=== PATIENT | female | born 1965 | race Caucasian/White ===

== ENCOUNTER 2016-06-24 14:50 | Inpatient (IN) | payer SELFPAY ==
[~2016-06-24] VITALS: Ht 167.6 cm; Wt 126.6 kg
[~2016-06-24 14:50] MED LIST: AML5T PO; METR500T PO; NITR-48 PO; OXY20CRT PO; OXYC10TA44 PO; TRIA25TA3 PO
[2016-06-24 15:57] LABS: Basophils # (auto) 0.1 uL; Basophils % (auto) 0.6 % (0.0-2.0); Eosinophils # (auto) 0.1 uL; Eosinophils % (auto) 1.2 % (0.0-7.0); Hematocrit 42.4 % (36.0-46.0); Hemoglobin 13.8 g/dL (12.2-16.2); Lymphocytes # (auto) 2.4 uL; Lymphocytes % (auto) 19.7 % (10.0-50.0); Mean Corpuscular Hemoglobin 27.5 pg (28.0-32.0); Mean Corpuscular Hgb Conc. 32.4 g/dL (32.0-36.0); Mean Corpuscular Volume 84.7 fL (80.0-100.0); Mean Platelet Volume 7.7 fL (7.4-10.4); Monocytes # (auto) 0.7 uL; Monocytes % (auto) 5.5 % (0.0-12.0); Neutrophils # (auto) 8.9 uL; Platelet Count (auto) 381 10^3/uL (140-450); Red Cell Distribution Width 14.7 % (11.6-16.0); White Blood Cell 12.2 10^3/uL (4.4-10.8)
[2016-06-24 16:11] LABS: Albumin 3.5 g/dL (3.4-5.0); BUN/Creatinine Ratio 13.4; Calcium 8.5 mg/dL (8.5-10.1)
[2016-06-24 16:14] LABS: Bilirubin, Total 0.3 mg/dL (0.2-1.0); Total Protein 7.3 g/dL (6.4-8.2)
[2016-06-24 16:40] LABS: INR 0.92 (0.9-1.15); Prothrombin Time 9.9 sec (9.37-12.3)
[2016-06-25] MEDS ORDERED: SODIUM CHLORIDE 0.9% 1,000 ML IV ONE (00:45)
[2016-06-25] MEDS ORDERED: HYDROmorphone HCL 2 MG/ML VL IV ONE ×2 (00:45→03:15)
[2016-06-25] MEDS ORDERED: ONDANSETRON HCL 4 MG/2 ML VIAL IV ONE (00:45)
[2016-06-25] MEDS ORDERED: cefTRIAXone 1GM/50ML D5W 50 ML IV ONE (03:15)
[2016-06-25] MEDS ORDERED: ACETAMINOPHEN 325 MG TAB PO PRN (06:00)
[2016-06-25] MEDS: CLINDAMYCIN 600MG IV 50 ML IV SCH ×3 (07:00→21:15)
[2016-06-25] MEDS ORDERED: ENOXAPARIN SOD 30 MG/0.3 ML SYRINGE SC SCH (10:00)
[2016-06-25] MEDS: TRIAMTERENE/HCTZ 75/50MG TABLET PO SCH (10:00)
[2016-06-25] MEDS ORDERED: MORPHINE SULF INJ 2 MG/ML SYRINGE 1ML IV PRN (11:15)
[2016-06-25] MEDS ORDERED: LACTULOSE 20Gm/30ML SOLN PO ONE (11:15)
[2016-06-25] MEDS ORDERED: KETOROLAC TROMETH 30 MG/ML 1ML VIAL IV PRN (12:00)
[2016-06-25] MEDS: FAMOTIDINE 20 MG TAB PO SCH ×2 (12:09→21:15)
[2016-06-25] MEDS: amLODIPine BESYLATE 5 MG TAB PO SCH (12:09)
[2016-06-25] MEDS: ENOXAPARIN SOD 40 MG/0.4 ML SYRINGE SC SCH (12:09)
[2016-06-25 12:29] VITALS: BP 150/84
[2016-06-25] MEDS: HYDROmorphone HCL 2 MG/ML VL IV PRN ×2 (12:57→18:10)
[2016-06-25 17:08] VITALS: BP 153/90
[2016-06-25 20:00] VITALS: BP 139/77
[2016-06-25 22:00] VITALS: BP 139/77
[2016-06-26] MEDS: HYDROmorphone HCL 2 MG/ML VL IV PRN ×4 (00:03→22:46)
[2016-06-26 05:00] VITALS: BP 159/88
[2016-06-26] MEDS: CLINDAMYCIN 600MG IV 50 ML IV SCH ×3 (05:25→22:45)
[2016-06-26 08:00] VITALS: BP 138/98
[2016-06-26 09:29] VITALS: BP 127/96
[2016-06-26] MEDS ORDERED: LACTULOSE 20Gm/30ML SOLN PO SCH (10:00)
[2016-06-26] MEDS: amLODIPine BESYLATE 5 MG TAB PO SCH (10:24)
[2016-06-26] MEDS: TRIAMTERENE/HCTZ 75/50MG TABLET PO SCH (10:24)
[2016-06-26] MEDS: ENOXAPARIN SOD 40 MG/0.4 ML SYRINGE SC SCH (10:25)
[2016-06-26] MEDS: FAMOTIDINE 20 MG TAB PO SCH ×2 (10:25→22:45)
[2016-06-26 13:29] VITALS: BP 138/98
[2016-06-26 17:05] VITALS: BP 131/86
[2016-06-26 23:22] VITALS: BP 162/92
[2016-06-27] MEDS: OXYCODONE W/ ACETAMINOPHEN 5/325MG TABLET PO PRN ×3 (04:55→20:46)
[2016-06-27] MEDS: CLINDAMYCIN 600MG IV 50 ML IV SCH ×3 (05:59→21:46)
[2016-06-27] MEDS: ONDANSETRON HCL 4 MG/2 ML VIAL IV PRN ×2 (06:04→19:40)
[2016-06-27 06:20] VITALS: BP 136/75
[2016-06-27 08:00] VITALS: BP 135/92
[2016-06-27 08:15] VITALS: BP 135/72
[2016-06-27] MEDS: LACTULOSE 20Gm/30ML SOLN PO SCH (10:00)
[2016-06-27] MEDS: amLODIPine BESYLATE 5 MG TAB PO SCH (10:44)
[2016-06-27] MEDS: FAMOTIDINE 20 MG TAB PO SCH ×2 (10:44→21:46)
[2016-06-27] MEDS: TRIAMTERENE/HCTZ 75/50MG TABLET PO SCH (10:45)
[2016-06-27] MEDS: ENOXAPARIN SOD 40 MG/0.4 ML SYRINGE SC SCH (10:46)
[2016-06-27 12:56] VITALS: BP 135/92
[2016-06-27] MEDS: HYDROmorphone HCL 2 MG/ML VL IV PRN (14:22)
[2016-06-27 17:07] VITALS: BP 134/86
[2016-06-27 22:00] VITALS: BP 125/89
[2016-06-28] MEDS: OXYCODONE W/ ACETAMINOPHEN 5/325MG TABLET PO PRN ×4 (03:51→21:58)
[2016-06-28] MEDS: CLINDAMYCIN 600MG IV 50 ML IV SCH ×3 (05:43→21:59)
[2016-06-28 05:49] VITALS: BP 120/79
[2016-06-28] MEDS: ONDANSETRON HCL 4 MG/2 ML VIAL IV PRN ×2 (05:53→12:07)
[2016-06-28 08:00] VITALS: BP 132/80
[2016-06-28 08:05] LABS: Basophils # (auto) 0.1 uL; Basophils % (auto) 0.7 % (0.0-2.0); Eosinophils # (auto) 0.2 uL; Eosinophils % (auto) 1.7 % (0.0-7.0); Hematocrit 42.7 % (36.0-46.0); Hemoglobin 14.2 g/dL (12.2-16.2); Lymphocytes # (auto) 2.6 uL; Lymphocytes % (auto) 23.3 % (10.0-50.0); Mean Corpuscular Hemoglobin 27.7 pg (28.0-32.0); Mean Corpuscular Hgb Conc. 33.3 g/dL (32.0-36.0); Mean Corpuscular Volume 83.3 fL (80.0-100.0); Mean Platelet Volume 7.7 fL (7.4-10.4); Monocytes # (auto) 0.8 uL; Monocytes % (auto) 6.7 % (0.0-12.0); Neutrophils # (auto) 7.6 uL; Neutrophils % (auto) 67.6 % (37.0-80.0); Platelet Count (auto) 406 10^3/uL (140-450); Red Cell Distribution Width 14.5 % (11.6-16.0); White Blood Cell 11.3 10^3/uL (4.4-10.8)
[2016-06-28 08:16] LABS: INR 0.92 (0.9-1.15); Partial Thromboplastin Time 26.8 sec (22.64-33.71); Prothrombin Time 9.9 sec (9.37-12.3)
[2016-06-28 08:31] LABS: BUN/Creatinine Ratio 22.3; Calcium 9.2 mg/dL (8.5-10.1); Potassium 4.5 mmol/L (3.5-5.1)
[2016-06-28 08:55] VITALS: BP 132/80
[2016-06-28] MEDS: ENOXAPARIN SOD 40 MG/0.4 ML SYRINGE SC SCH (09:19)
[2016-06-28] MEDS: amLODIPine BESYLATE 5 MG TAB PO SCH (09:20)
[2016-06-28] MEDS: TRIAMTERENE/HCTZ 75/50MG TABLET PO SCH (09:20)
[2016-06-28] MEDS: FAMOTIDINE 20 MG TAB PO SCH ×2 (09:21→21:58)
[2016-06-28] MEDS: LACTULOSE 20Gm/30ML SOLN PO SCH (09:49)
[2016-06-28] MEDS: HYDROmorphone HCL 2 MG/ML VL IV PRN (12:07)
[2016-06-28 12:38] VITALS: BP 115/88
[2016-06-28] MEDS ORDERED: CLIN1CAP4 PO (13:29)
[2016-06-28 17:13] VITALS: BP 125/85
[2016-06-28 22:00] VITALS: BP 142/81
[2016-06-29] MEDS ORDERED: ALPRAZolam 0.5 MG TAB PO ONE (00:30)
[2016-06-29 05:48] VITALS: BP 109/57
[2016-06-29] MEDS: CLINDAMYCIN 600MG IV 50 ML IV SCH ×2 (06:22→14:00)
[2016-06-29 08:00] VITALS: BP 132/80
[2016-06-29] MEDS: HYDROmorphone HCL 2 MG/ML VL IV PRN ×4 (08:45→18:56)
[2016-06-29] MEDS: ONDANSETRON HCL 4 MG/2 ML VIAL IV PRN ×2 (08:45→18:56)
[2016-06-29] MEDS: ENOXAPARIN SOD 40 MG/0.4 ML SYRINGE SC SCH (10:00)
[2016-06-29] MEDS: TRIAMTERENE/HCTZ 75/50MG TABLET PO SCH (10:00)
[2016-06-29] MEDS: FAMOTIDINE 20 MG TAB PO SCH ×2 (10:00→21:49)
[2016-06-29] MEDS: amLODIPine BESYLATE 5 MG TAB PO SCH (10:00)
[2016-06-29] MEDS: LACTULOSE 20Gm/30ML SOLN PO SCH (10:00)
[2016-06-29 10:43] VITALS: BP 118/77
[2016-06-29] MEDS ORDERED: LIDOCAINE 1% HCL (LOCAL ANESTH.) INJ 20ML MDV ONE (11:54)
[2016-06-29] MEDS ORDERED: BUPIVACAINE 0.25% INJ 50ML VIAL ONE (11:54)
[2016-06-29] MEDS ORDERED: ceFAZolin 1GM/50ML D5W 0 ML IV ONE (12:16)
[2016-06-29] MEDS ORDERED: LEVOFLOXACIN 500MG 100 ML IV ONE (12:28)
[2016-06-29] MEDS ORDERED: ePHEDrine SULFATE 50 MG/ML AMP IV PRN (13:45)
[2016-06-29] MEDS ORDERED: ONDANSETRON HCL 4 MG/2 ML VIAL IV ONE (13:45)
[2016-06-29] MEDS ORDERED: LABETALOL HCL 5 MG/ML 4ML SYRINGE IV PRN (13:45)
[2016-06-29] MEDS ORDERED: MIDAZOLAM HCL 1MG/1ML-2 ML VIAL IV PRN (13:45)
[2016-06-29] MEDS ORDERED: HYDROmorphone HCL 2 MG/ML VL ONE (13:46)
[2016-06-29 15:27] VITALS: BP 122/78
[2016-06-29] MEDS ORDERED: ACETAMINOPHEN/CODEINE#3 (300/30mg) TAB PO PRN (16:00)
[2016-06-29] MEDS: OXYCODONE W/ ACETAMINOPHEN 5/325MG TABLET PO PRN ×3 (16:00→23:01)
[2016-06-29 18:13] VITALS: BP 127/80
[2016-06-29] MEDS: MORPHINE SULFATE 4 MG/ML SYRG IV PRN (19:10)
[2016-06-29] MEDS: CLINDAMYCIN 300MG IV 50 ML IV SCH (20:56)
[2016-06-29] MEDS: ceFAZolin 1GM/50ML D5W 50 ML IV SCH (21:49)
[2016-06-29 22:00] VITALS: BP 144/69
[2016-06-30] MEDS: MORPHINE SULFATE 4 MG/ML SYRG IV PRN ×2 (02:47→07:22)
[2016-06-30] MEDS: ONDANSETRON HCL 4 MG/2 ML VIAL IV PRN ×2 (02:47→07:22)
[2016-06-30] MEDS: CLINDAMYCIN 300MG IV 50 ML IV SCH (04:34)
[2016-06-30 05:00] VITALS: BP 136/69
[2016-06-30] MEDS: OXYCODONE W/ ACETAMINOPHEN 5/325MG TABLET PO PRN (05:02)
[2016-06-30] MEDS: ceFAZolin 1GM/50ML D5W 50 ML IV SCH (05:47)
[2016-06-30 08:00] VITALS: BP 109/57
== END 2016-06-30 08:20 | disposition home or self-care (01) | DRG 570 ==
LOC: ER 14:50 → OVERFLOW 14:51 → WEST WING 06-25 10:51
PROVIDERS: ADMIT Nurse Practitioner; ATTEND Internal Medicine
PROC: 0J9C00Z Drainage of Pelvic Region Subcutaneous Tissue and Fascia with Drainage Device, Open Approach (ICD-10-PCS; 2016-06-29)
PROC: 0JBC0ZZ Excision of Pelvic Region Subcutaneous Tissue and Fascia, Open Approach (ICD-10-PCS; principal; 2016-06-29 12:45)
DX: L03.314 Cellulitis of groin (principal); K65.1 Peritoneal abscess; N17.9 Acute kidney failure, unspecified; F11.20 Opioid dependence, uncomplicated; R65.10 Systemic inflammatory response syndrome (SIRS) of non-infectious origin without acute organ dysfunction; Z68.42 Body mass index [BMI] 45.0-49.9, adult; L02.214 Cutaneous abscess of groin; L02.211 Cutaneous abscess of abdominal wall; M54.9 Dorsalgia, unspecified; G89.29 Other chronic pain; F17.210 Nicotine dependence, cigarettes, uncomplicated; I10 Essential (primary) hypertension; K42.9 Umbilical hernia without obstruction or gangrene; L03.311 Cellulitis of abdominal wall; R19.03 Right lower quadrant abdominal swelling, mass and lump; E66.01 Morbid (severe) obesity due to excess calories; Z90.49 Acquired absence of other specified parts of digestive tract; Z90.710 Acquired absence of both cervix and uterus; Z88.5 Allergy status to narcotic agent; Z88.0 Allergy status to penicillin; Z88.8 Allergy status to other drugs, medicaments and biological substances; Z91.018 Allergy to other foods
CPT/HCPCS: 36415; 71010; 74176; 76856; 80048; 80053; 84702; 85025; 85610; 85730; 86850; 86900; 86901; 87070; 87075; 87205; 93005; 96361; 96365; 96375; 96376; J0690; J0696; J1956; J2001; J2405; J3490

== ENCOUNTER 2016-07-05 19:35 | Inpatient (IN) | payer SELFPAY ==
[~2016-07-05] VITALS: Ht 167.6 cm; Wt 127.9 kg
[~2016-07-05 19:35] MED LIST changes: +CLIN1CAP4 PO; -METR500T PO; -NITR-48 PO; -TRIA25TA3 PO
[2016-07-05 20:47] LABS: Basophils # (auto) 0 uL; Basophils % (auto) 0.1 % (0.0-2.0); Eosinophils # (auto) 0.2 uL; Hematocrit 42.4 % (36.0-46.0); Hemoglobin 13.9 g/dL (12.2-16.2); Lymphocytes # (auto) 3.6 uL; Lymphocytes % (auto) 20.6 % (10.0-50.0); Mean Corpuscular Hemoglobin 27.6 pg (28.0-32.0); Mean Corpuscular Hgb Conc. 32.8 g/dL (32.0-36.0); Mean Platelet Volume 7.8 fL (7.4-10.4); Monocytes # (auto) 0.2 uL; Monocytes % (auto) 1.3 % (0.0-12.0); Neutrophils # (auto) 13.3 uL; Platelet Count (auto) 483 10^3/uL (140-450); Red Cell Distribution Width 14.4 % (11.6-16.0); White Blood Cell 17.2 10^3/uL (4.4-10.8)
[2016-07-05 20:50] LABS: Urine Bilirubin Negative (Negative); Urine Blood TRACE /uL (Negative); Urine Color Yellow (Yellow); Urine Glucose Normal (Normal); Urine Ketone TRACE (Negative); Urine Mucus FEW (None Seen); Urine Nitrite Negative (Negative); Urine RBC 9 /hpf (0 - 4); Urine Squamous Epithelial Cell FEW /hpf (<5); Urine Urobilinogen Normal (Negative); Urine pH 5.5 (5.0-8.0)
[2016-07-05 21:09] LABS: Albumin 3.5 g/dL (3.4-5.0); BUN/Creatinine Ratio 11.6; Calcium 8.6 mg/dL (8.5-10.1); Potassium 3.7 mmol/L (3.5-5.1)
[2016-07-05 21:12] LABS: Bilirubin, Total 0.1 mg/dL (0.2-1.0); Total Protein 7.5 g/dL (6.4-8.2)
[2016-07-06] MEDS ORDERED: HYDROmorphone HCL 2 MG/ML VL IV ONE ×2 (05:15→08:45)
[2016-07-06] MEDS ORDERED: ONDANSETRON HCL 4 MG/2 ML VIAL IV ONE ×2 (05:15→08:45)
[2016-07-06] MEDS: SODIUM CHLORIDE 0.9% 1,000 ML IV SCH ×2 (08:18→18:27)
[2016-07-06] MEDS ORDERED: HYDROcodone-ACET 5/325MG TAB PO PRN (08:30)
[2016-07-06] MEDS ORDERED: DEXTROSE (50%) 50ML SYRG IV PRN (08:30)
[2016-07-06] MEDS ORDERED: ACETAMINOPHEN 500 MG TAB PO PRN (08:30)
[2016-07-06] MEDS ORDERED: NITROGLYCERIN 0.4 MG SL TAB SL PRN (08:30)
[2016-07-06] MEDS ORDERED: LEVOFLOXACIN 500MG 100 ML IV ONE (08:30)
[2016-07-06] MEDS ORDERED: LORazepam 0.5 MG TAB PO PRN (08:30)
[2016-07-06] MEDS ORDERED: MORPHINE SULF INJ 2 MG/ML SYRINGE 1ML IV PRN (08:30)
[2016-07-06] MEDS ORDERED: LACTULOSE 20Gm/30ML SOLN PO PRN (08:30)
[2016-07-06 09:50] LABS: INR 0.96 (0.9-1.15); Partial Thromboplastin Time 25.6 sec (22.64-33.71); Prothrombin Time 10.4 sec (9.37-12.3)
[2016-07-06] MEDS: ENOXAPARIN SOD 40 MG/0.4 ML SYRINGE SC SCH (10:00)
[2016-07-06] MEDS: CLINDAMYCIN 600MG IV 50 ML IV SCH ×2 (10:51→18:26)
[2016-07-06] MEDS: MORPHINE SULF INJ 2 MG/ML SYRINGE 1ML IV PRN ×2 (10:52→18:00)
[2016-07-06] MEDS: FAMOTIDINE 20 MG TAB PO SCH ×2 (10:52→21:09)
[2016-07-06] MEDS ORDERED: LEVOFLOXACIN 500MG 100 ML IV SCH (11:00)
[2016-07-06] MEDS: ACCU-CHEK COMFORT CURVE STRIP VI SCH ×3 (11:30→21:17)
[2016-07-06] MEDS: InsuLIN REG 1unit/0.01ml Soln (100units/ml) SC SCH ×3 (11:30→21:16)
[2016-07-06] MEDS ORDERED: INFLUENZA QUAD 2016-2017 0.5 ML SYRG IM ONE (11:30)
[2016-07-06] MEDS ORDERED: PNEUMOCOCCAL VACC POLYS 25 MCG/0.5 ML VIAL IM ONE (11:30)
[2016-07-06 13:00] VITALS: BP 159/90
[2016-07-06 17:00] VITALS: BP 151/73
[2016-07-06] MEDS: ONDANSETRON HCL 4 MG/2 ML VIAL IV PRN ×2 (18:00→21:09)
[2016-07-06] MEDS: medroxyPROGESTERone ACETATE 5 MG TAB PO SCH (18:27)
[2016-07-06 20:00] VITALS: BP 118/84
[2016-07-06 21:30] VITALS: BP 118/84
[2016-07-06] MEDS ORDERED: OXYCODONE W/ ACETAMINOPHEN 5/325MG TABLET PO PRN (22:15)
[2016-07-07] VITALS (7 sets, daily range): BP systolic 137–167; BP diastolic 78–104
[2016-07-07] MEDS: SODIUM CHLORIDE 0.9% 1,000 ML IV SCH ×2 (00:47→15:47)
[2016-07-07] MEDS: CLOTRIMAZOLE 1 % CREAM 15GM TOP SCH ×3 (00:47→22:00)
[2016-07-07] MEDS: ONDANSETRON HCL 4 MG/2 ML VIAL IV PRN ×2 (00:47→09:35)
[2016-07-07] MEDS: HYDROmorphone HCL 2 MG/ML VL IV PRN ×4 (00:48→20:08)
[2016-07-07] MEDS: CLINDAMYCIN 600MG IV 50 ML IV SCH ×3 (02:04→17:28)
[2016-07-07] MEDS: ACCU-CHEK COMFORT CURVE STRIP VI SCH ×4 (05:14→21:40)
[2016-07-07] MEDS: InsuLIN REG 1unit/0.01ml Soln (100units/ml) SC SCH ×4 (05:14→21:39)
[2016-07-07 07:00] LABS: Basophils # (auto) 0 uL; Basophils % (auto) 0.4 % (0.0-2.0); Eosinophils # (auto) 0.2 uL; Eosinophils % (auto) 2.2 % (0.0-7.0); Hematocrit 36.6 % (36.0-46.0); Hemoglobin 11.9 g/dL (12.2-16.2); Lymphocytes # (auto) 3.5 uL; Lymphocytes % (auto) 30.5 % (10.0-50.0); Mean Corpuscular Hemoglobin 27.5 pg (28.0-32.0); Mean Corpuscular Hgb Conc. 32.6 g/dL (32.0-36.0); Mean Corpuscular Volume 84.6 fL (80.0-100.0); Mean Platelet Volume 7.6 fL (7.4-10.4); Monocytes # (auto) 0.9 uL; Monocytes % (auto) 7.6 % (0.0-12.0); Neutrophils # (auto) 6.7 uL; Neutrophils % (auto) 59.3 % (37.0-80.0); Platelet Count (auto) 406 10^3/uL (140-450); Red Cell Distribution Width 14.6 % (11.6-16.0); White Blood Cell 11.3 10^3/uL (4.4-10.8)
[2016-07-07 07:21] LABS: Potassium 3.7 mmol/L (3.5-5.1)
[2016-07-07 07:26] LABS: BUN/Creatinine Ratio 18.7; Calcium 8.3 mg/dL (8.5-10.1); Total Protein 6.5 g/dL (6.4-8.2)
[2016-07-07 07:28] LABS: Bilirubin, Total 0.2 mg/dL (0.2-1.0)
[2016-07-07] MEDS: FAMOTIDINE 20 MG TAB PO SCH ×2 (09:33→21:39)
[2016-07-07] MEDS: ENOXAPARIN SOD 40 MG/0.4 ML SYRINGE SC SCH (09:33)
[2016-07-07] MEDS: ESTROGEN CONJ 0.3 MG TAB PO SCH (09:33)
[2016-07-07] MEDS: LEVOFLOXACIN 500MG 100 ML IV SCH (11:13)
[2016-07-07] MEDS: medroxyPROGESTERone ACETATE 5 MG TAB PO SCH (17:28)
[2016-07-07] MEDS: TEMAZEPAM 15 MG CAP PO PRN (22:10)
[2016-07-08] VITALS (7 sets, daily range): BP systolic 137–158; BP diastolic 76–108
[2016-07-08] MEDS: SODIUM CHLORIDE 0.9% 1,000 ML IV SCH ×2 (00:18→10:30)
[2016-07-08] MEDS: CLINDAMYCIN 600MG IV 50 ML IV SCH ×2 (02:24→10:29)
[2016-07-08] MEDS: TEMAZEPAM 15 MG CAP PO PRN (02:31)
[2016-07-08] MEDS: InsuLIN REG 1unit/0.01ml Soln (100units/ml) SC SCH ×2 (07:00→11:27)
[2016-07-08] MEDS: ACCU-CHEK COMFORT CURVE STRIP VI SCH ×2 (07:12→11:27)
[2016-07-08] MEDS: ESTROGEN CONJ 0.3 MG TAB PO SCH (10:29)
[2016-07-08] MEDS: ENOXAPARIN SOD 40 MG/0.4 ML SYRINGE SC SCH (10:29)
[2016-07-08] MEDS: FAMOTIDINE 20 MG TAB PO SCH (10:29)
[2016-07-08] MEDS: CLOTRIMAZOLE 1 % CREAM 15GM TOP SCH (10:30)
[2016-07-08] MEDS: HYDROmorphone HCL 2 MG/ML VL IV PRN (11:57)
[2016-07-08] MEDS: LEVOFLOXACIN 500MG 100 ML IV SCH (12:17)
== END 2016-07-08 17:00 | disposition home or self-care (01) | DRG 758 ==
LOC: ER 19:37 → TELE 19:38 → TELE-EAST 07-06 10:17 → EAST 07-08 06:37
PROVIDERS: ADMIT Internal Medicine; ATTEND Internal Medicine
DX: B37.3 Candidiasis of vulva and vagina (principal); N39.0 Urinary tract infection, site not specified; Z68.42 Body mass index [BMI] 45.0-49.9, adult; L03.311 Cellulitis of abdominal wall; E11.9 Type 2 diabetes mellitus without complications; E66.01 Morbid (severe) obesity due to excess calories; I10 Essential (primary) hypertension; M79.7 Fibromyalgia; Z88.6 Allergy status to analgesic agent; Z88.0 Allergy status to penicillin; Z88.8 Allergy status to other drugs, medicaments and biological substances; Z79.899 Other long term (current) drug therapy; Z82.49 Family history of ischemic heart disease and other diseases of the circulatory system; Z80.9 Family history of malignant neoplasm, unspecified; Z91.02 Food additives allergy status
CPT/HCPCS: 36415; 74176; 76830; 76856; 80053; 81001; 81025; 82962; 83036; 83605; 85025; 85610; 85652; 85730; 87040; 87081; 87086; 94761; 96365; 96375; 96376; J1956; J2405; J3490

== ENCOUNTER 2017-01-28 01:28 | Emergency (ER) | payer SELFPAY ==
[~2017-01-28] VITALS: Ht 167.6 cm; Wt 80.0 kg
[~2017-01-28 01:28] MED LIST changes: -CLIN1CAP4 PO; -OXY20CRT PO; -OXYC10TA44 PO
[2017-01-28] MEDS ORDERED: ONDANSETRON ODT 4 MG TAB PO ONE (01:45)
[2017-01-28 01:57] LABS: Basophils # (auto) 0 uL; Basophils % (auto) 0.3 % (0.0-2.0); Eosinophils # (auto) 0.2 uL; Eosinophils % (auto) 1.6 % (0.0-7.0); Hematocrit 41.9 % (36.0-46.0); Hemoglobin 13.7 g/dL (12.2-16.2); Lymphocytes # (auto) 3.1 uL; Lymphocytes % (auto) 25.7 % (10.0-50.0); Mean Corpuscular Hemoglobin 27.4 pg (28.0-32.0); Mean Corpuscular Hgb Conc. 32.8 g/dL (32.0-36.0); Mean Corpuscular Volume 83.5 fL (80.0-100.0); Monocytes # (auto) 0.8 uL; Monocytes % (auto) 6.7 % (0.0-12.0); Neutrophils % (auto) 65.7 % (37.0-80.0); Platelet Count (auto) 364 10^3/uL (140-450); Red Blood Cells 5.01 10^6/uL (4.0-5.20); Red Cell Distribution Width 13.5 % (11.8-14.3); White Blood Cell 12.1 10^3/uL (4.4-10.8)
[2017-01-28 02:00] LABS: Urine Bacteria FEW /hpf (None Seen); Urine Blood Negative /uL (Negative); Urine Specific Gravity 1.013 (1.001-1.035); Urine WBC <1 /hpf (0 - 5)
[2017-01-28 02:11] LABS: INR 0.9 (0.9-1.15); Partial Thromboplastin Time 24.8 sec (22.64-33.71); Prothrombin Time 9.8 sec (9.37-12.3)
[2017-01-28 02:13] LABS: Alanine Aminotransferase 26 U/L (13-56); Albumin 3.4 g/dL (3.4-5.0); Amylase 40 U/L (25-115); Anion Gap 8 (5-15); Aspartate Aminotransferase 11 U/L (15-37); BUN/Creatinine Ratio 14.8; Blood Urea Nitrogen 12 mg/dL (7-18); Calcium 8.7 mg/dL (8.5-10.1); Carbon Dioxide 27 mmol/L (21-32); Chloride 103 mmol/L (98-107); GFR African American 97 mL/min; GFR Non-African American 80 mL/min; Glucose 97 mg/dL (74-106); Lipase 130 U/L (73-393); Potassium 3.6 mmol/L (3.5-5.1); Sodium 138 mmol/L (136-145)
[2017-01-28 02:18] LABS: Alkaline Phosphatase 97 U/L (45-117); Bilirubin, Total 0.2 mg/dL (0.2-1.0); Total Protein 7.4 g/dL (6.4-8.2)
[2017-01-28 02:40] VITALS: BP 166/82
[2017-01-28] MEDS ORDERED: SODIUM CHLORIDE 0.9% 1,000 ML IV ONE (02:45)
[2017-01-28] MEDS ORDERED: ONDANSETRON HCL 4 MG/2 ML VIAL IV ONE (02:45)
[2017-01-28] MEDS ORDERED: ACETAMINOPHEN 325 MG TAB PO ONE (03:00)
[2017-01-28] MEDS ORDERED: ALUM & MAG HYDROX-SIMETH LIQ(MAALOX) 30 ML ONE (03:40)
[2017-01-28] MEDS ORDERED: ALUM & MAG HYDROX-SIMETH LIQ(MAALOX) 30 ML PO ONE (04:00)
== END 2017-01-28 04:17 | disposition home or self-care (01) ==
LOC: ER 01:30
DX: R10.9 Unspecified abdominal pain (principal); E11.9 Type 2 diabetes mellitus without complications; I10 Essential (primary) hypertension; Z88.0 Allergy status to penicillin; Z88.6 Allergy status to analgesic agent; Z88.8 Allergy status to other drugs, medicaments and biological substances; Z98.890 Other specified postprocedural states
CPT/HCPCS: 36415; 71020; 74176; 80053; 81001; 82150; 83690; 84484; 84702; 85025; 85610; 85730; 93005; 96361; 96374; 99285; J2405; J7030; Q0162

== ENCOUNTER 2017-01-29 17:54 | Emergency (ER) | payer SELFPAY ==
[~2017-01-29] VITALS: Ht 162.6 cm; Wt 113.4 kg
[2017-01-29 19:28] LABS: INR 0.97 (0.9-1.15); Prothrombin Time 10.6 sec (9.37-12.3)
[2017-01-29 19:32] LABS: Albumin 3.5 g/dL (3.4-5.0); Anion Gap 7 (5-15); Aspartate Aminotransferase 11 U/L (15-37); BUN/Creatinine Ratio 10.9; Blood Urea Nitrogen 10 mg/dL (7-18); Calcium 8.7 mg/dL (8.5-10.1); Carbon Dioxide 24 mmol/L (21-32); Chloride 110 mmol/L (98-107); GFR African American 83 mL/min; GFR Non-African American 69 mL/min; Glucose 96 mg/dL (74-106); Sodium 141 mmol/L (136-145)
[2017-01-29 19:36] LABS: Alkaline Phosphatase 81 U/L (45-117); Basophils # (auto) 0.1 uL; Basophils % (auto) 0.4 % (0.0-2.0); Bilirubin, Total 0.3 mg/dL (0.2-1.0); Eosinophils # (auto) 0 uL; Eosinophils % (auto) 0.2 % (0.0-7.0); Hematocrit 44.4 % (36.0-46.0); Hemoglobin 14.5 g/dL (12.2-16.2); Lymphocytes # (auto) 3.3 uL; Lymphocytes % (auto) 18.7 % (10.0-50.0); Mean Corpuscular Hemoglobin 27.4 pg (28.0-32.0); Mean Corpuscular Hgb Conc. 32.6 g/dL (32.0-36.0); Mean Corpuscular Volume 84.1 fL (80.0-100.0); Mean Platelet Volume 7.7 fL (6.9-10.8); Monocytes # (auto) 0.8 uL; Monocytes % (auto) 4.8 % (0.0-12.0); Neutrophils # (auto) 13.3 uL; Neutrophils % (auto) 75.9 % (37.0-80.0); Platelet Count (auto) 398 10^3/uL (140-450); Red Cell Distribution Width 13.7 % (11.8-14.3); Total Protein 7.6 g/dL (6.4-8.2); White Blood Cell 17.6 10^3/uL (4.4-10.8)
[2017-01-29] MEDS ORDERED: ONDANSETRON ODT 4 MG TAB PO ONE (23:15)
[2017-01-29] MEDS ORDERED: SODIUM CHLORIDE 0.9% 1,000 ML IV ONE (23:30)
[2017-01-29] MEDS ORDERED: ONDANSETRON HCL 4 MG/2 ML VIAL IV ONE (23:30)
[2017-01-30] MEDS ORDERED: PROMETHAZINE HCL 25 MG/ML 1ML IV ONE (00:30)
[2017-01-30] MEDS ORDERED: LEVOFLOXACIN 750MG 150 ML IV ONE (01:00)
[2017-01-30] MEDS ORDERED: NALBUPHINE HCL 10 MG/1ml INJECTION IV ONE (01:00)
[2017-01-30 02:21] VITALS: BP 158/95
[2017-01-30] MEDS ORDERED: HYDROmorphone HCL 2 MG/ML VL IM ONE (03:45)
== END 2017-01-30 04:23 | disposition home or self-care (01) ==
LOC: ER 17:54 → EDBD 17:54 → ER 01-30 03:53
DX: R11.2 Nausea with vomiting, unspecified (principal); M47.896 Other spondylosis, lumbar region; E11.9 Type 2 diabetes mellitus without complications; I10 Essential (primary) hypertension; Z88.0 Allergy status to penicillin; Z88.6 Allergy status to analgesic agent; Z88.8 Allergy status to other drugs, medicaments and biological substances
CPT/HCPCS: 36415; 71010; 80053; 84484; 85025; 85610; 85730; 96361; 96365; 96372; 96375; 99285; J1170; J1956; J2300; J2405; J2550; J7030

== ENCOUNTER 2017-04-24 07:17 | Inpatient (IN) | payer MEDICAID ==
[~2017-04-24] VITALS: Ht 170.2 cm; Wt 121.6 kg
[~2017-04-24 07:17] MED LIST changes: +METF-370 PO; +OXYC30TA50 PO
[2017-04-24 10:21] LABS: Basophils # (auto) 0.2 uL; Basophils % (auto) 1.1 % (0.0-2.0); Eosinophils # (auto) 0 uL; Eosinophils % (auto) 0.1 % (0.0-7.0); Hemoglobin 14.5 g/dL (12.2-16.2); Lymphocytes # (auto) 1.9 uL; Lymphocytes % (auto) 13.8 % (10.0-50.0); Mean Corpuscular Hemoglobin 27.5 pg (28.0-32.0); Mean Corpuscular Volume 83.3 fL (80.0-100.0); Monocytes # (auto) 0.7 uL; Monocytes % (auto) 5.1 % (0.0-12.0); Neutrophils # (auto) 11.2 uL; Neutrophils % (auto) 79.9 % (37.0-80.0); Nucleated Red Blood Cells % 0.1 %; Platelet Count (auto) 438 10^3/uL (140-450); Red Blood Cells 5.29 10^6/uL (4.0-5.20); Red Cell Distribution Width 15.3 % (11.8-14.3)
[2017-04-24] MEDS ORDERED: PANTOPRAZOLE 40 MG/10 ML VIAL IV STA (10:24)
[2017-04-24] MEDS ORDERED: ONDANSETRON HCL 4 MG/2 ML VIAL IV ONE ×2 (10:30→12:00)
[2017-04-24] MEDS ORDERED: HYDROmorphone HCL 2 MG/ML VL IV ONE ×2 (10:30→12:00)
[2017-04-24 10:41] LABS: Albumin 3.7 g/dL (3.4-5.0); Calcium 9.5 mg/dL (8.5-10.1); Potassium 3.7 mmol/L (3.5-5.1)
[2017-04-24 10:44] LABS: BUN/Creatinine Ratio 21.4
[2017-04-24] MEDS ORDERED: SODIUM CHLORIDE 0.9% 500 ML IV ONE (10:45)
[2017-04-24 10:46] LABS: Bilirubin, Total 0.6 mg/dL (0.2-1.0); Total Protein 7.8 g/dL (6.4-8.2)
[2017-04-24 11:03] LABS: Magnesium 2.2 mg/dL (1.6-2.6)
[2017-04-24] MEDS ORDERED: LEVOFLOXACIN 500MG 100 ML IV ONE (12:30)
[2017-04-24] MEDS ORDERED: FAMOTIDINE (10MG/ML) 2ML VL IV SCH (12:30)
[2017-04-24] MEDS ORDERED: DEXTROSE (50%) 50ML SYRG IV PRN (12:30)
[2017-04-24] MEDS ORDERED: NITROGLYCERIN 0.4 MG SL TAB SL PRN (12:30)
[2017-04-24] MEDS ORDERED: HYDROcodone-ACET 5/325MG TAB PO PRN (12:30)
[2017-04-24] MEDS: SODIUM CHLORIDE 0.9% 1,000 ML IV SCH ×2 (12:51→21:53)
[2017-04-24] MEDS: PANTOPRAZOLE 40 MG/10 ML VIAL IV SCH ×2 (13:29→21:52)
[2017-04-24 13:30] LABS: Urine Bacteria FEW /hpf (None Seen); Urine Blood 1+ /uL (Negative); Urine Mucus FEW (None Seen); Urine Specific Gravity 1.023 (1.001-1.035); Urine WBC 2 /hpf (0 - 5)
[2017-04-24] MEDS: HYOSCYAMINE SULF 0.125 MG TAB PO SCH ×2 (13:34→18:37)
[2017-04-24] MEDS: ONDANSETRON HCL 4 MG/2 ML VIAL IV PRN ×2 (16:49→21:25)
[2017-04-24] MEDS: ACCU-CHEK COMFORT CURVE STRIP VI SCH ×2 (18:00→21:53)
[2017-04-24] MEDS: InsuLIN REG 1unit/0.01ml Soln (100units/ml) SC SCH ×2 (18:00→21:52)
[2017-04-24] MEDS: metroNIDAZOLE 500MG/100ML 100 ML IV SCH (18:37)
[2017-04-24 20:45] VITALS: BP 138/90
[2017-04-24] MEDS: LORazepam 0.5 MG TAB PO PRN (21:45)
[2017-04-24 22:00] VITALS: BP 138/90
[2017-04-24] MEDS: HYDROmorphone HCL 2 MG/ML VL IV PRN (23:06)
[2017-04-25] MEDS: metroNIDAZOLE 500MG/100ML 100 ML IV SCH ×4 (00:21→16:54)
[2017-04-25] MEDS: HYOSCYAMINE SULF 0.125 MG TAB PO SCH ×5 (00:21→16:54)
[2017-04-25] MEDS: HYDROmorphone HCL 2 MG/ML VL IV PRN (03:26)
[2017-04-25] MEDS: ONDANSETRON HCL 4 MG/2 ML VIAL IV PRN ×5 (03:26→20:58)
[2017-04-25] MEDS: LORazepam 0.5 MG TAB PO PRN ×3 (05:52→17:58)
[2017-04-25] MEDS: InsuLIN REG 1unit/0.01ml Soln (100units/ml) SC SCH ×4 (06:35→23:21)
[2017-04-25] MEDS: ACCU-CHEK COMFORT CURVE STRIP VI SCH ×4 (06:36→22:00)
[2017-04-25] MEDS ORDERED: MORPHINE SULFATE 4 MG/ML SYR/VIAL ONE (08:21)
[2017-04-25] MEDS ORDERED: MORPHINE SULFATE 10 MG/ML INJ 1ML SDV IV PRN (08:30)
[2017-04-25] MEDS: SODIUM CHLORIDE 0.9% 1,000 ML IV SCH ×2 (08:34→16:54)
[2017-04-25 08:46] VITALS: BP 143/67
[2017-04-25 08:55] LABS: Basophils # (auto) 0.1 uL; Basophils % (auto) 0.6 % (0.0-2.0); Eosinophils # (auto) 0 uL; Eosinophils % (auto) 0.3 % (0.0-7.0); Hematocrit 40.3 % (36.0-46.0); Hemoglobin 13.3 g/dL (12.2-16.2); Lymphocytes # (auto) 2.2 uL; Lymphocytes % (auto) 18.3 % (10.0-50.0); Mean Corpuscular Hemoglobin 27.4 pg (28.0-32.0); Mean Corpuscular Hgb Conc. 32.9 g/dL (32.0-36.0); Mean Corpuscular Volume 83.2 fL (80.0-100.0); Monocytes # (auto) 0.7 uL; Monocytes % (auto) 6.1 % (0.0-12.0); Neutrophils % (auto) 74.7 % (37.0-80.0); Platelet Count (auto) 370 10^3/uL (140-450); Red Blood Cells 4.85 10^6/uL (4.0-5.20); Red Cell Distribution Width 15.4 % (11.8-14.3); White Blood Cell 12.1 10^3/uL (4.4-10.8)
[2017-04-25 09:16] LABS: Cholesterol 152 mg/dL (< 200); HDL Cholesterol 46 mg/dL (40-59); LDL Cholesterol 102 mg/dL (< 100); Triglycerides 95 mg/dL (< 150)
[2017-04-25] MEDS: amLODIPine BESYLATE 5 MG TAB PO SCH (11:30)
[2017-04-25] MEDS: PANTOPRAZOLE 40 MG/10 ML VIAL IV SCH (11:32)
[2017-04-25] MEDS: LEVOFLOXACIN 500MG 100 ML IV SCH (11:32)
[2017-04-25 11:44] VITALS: BP 144/77
[2017-04-25] MEDS: MORPHINE SULFATE 4 MG/ML SYR/VIAL IV PRN ×3 (12:32→20:56)
[2017-04-25 16:54] VITALS: BP 123/76
[2017-04-25 22:00] VITALS: BP 114/58
[2017-04-26] MEDS: HYOSCYAMINE SULF 0.125 MG TAB PO SCH ×4 (00:47→17:44)
[2017-04-26] MEDS: metroNIDAZOLE 500MG/100ML 100 ML IV SCH ×4 (00:47→17:44)
[2017-04-26] MEDS: ONDANSETRON HCL 4 MG/2 ML VIAL IV PRN ×5 (00:47→17:44)
[2017-04-26] MEDS: MORPHINE SULFATE 4 MG/ML SYR/VIAL IV PRN ×2 (00:49→05:35)
[2017-04-26] MEDS: PANTOPRAZOLE 40 MG/10 ML VIAL IV SCH ×3 (00:50→21:46)
[2017-04-26] MEDS: SODIUM CHLORIDE 0.9% 1,000 ML IV SCH ×2 (04:18→15:03)
[2017-04-26] MEDS: LORazepam 0.5 MG TAB PO PRN ×2 (05:24→21:48)
[2017-04-26] MEDS: InsuLIN REG 1unit/0.01ml Soln (100units/ml) SC SCH ×4 (07:00→22:09)
[2017-04-26] MEDS: ACCU-CHEK COMFORT CURVE STRIP VI SCH ×4 (07:09→22:10)
[2017-04-26 07:10] LABS: Basophils # (auto) 0.1 uL; Basophils % (auto) 0.6 % (0.0-2.0); Eosinophils # (auto) 0.1 uL; Eosinophils % (auto) 0.9 % (0.0-7.0); Hematocrit 43.3 % (36.0-46.0); Hemoglobin 14.6 g/dL (12.2-16.2); Lymphocytes # (auto) 2.3 uL; Lymphocytes % (auto) 18.1 % (10.0-50.0); Mean Corpuscular Hemoglobin 28.3 pg (28.0-32.0); Mean Corpuscular Hgb Conc. 33.7 g/dL (32.0-36.0); Monocytes # (auto) 0.9 uL; Neutrophils # (auto) 9.3 uL; Neutrophils % (auto) 73.4 % (37.0-80.0); Nucleated Red Blood Cells % 0.2 %; Platelet Count (auto) 373 10^3/uL (140-450); Red Blood Cells 5.15 10^6/uL (4.0-5.20); Red Cell Distribution Width 14.9 % (11.8-14.3); White Blood Cell 12.6 10^3/uL (4.4-10.8)
[2017-04-26 07:19] LABS: Calcium 8.9 mg/dL (8.5-10.1)
[2017-04-26 07:21] LABS: BUN/Creatinine Ratio 11.8
[2017-04-26] MEDS ORDERED: OXYCODONE HCL 5MG TAB PO PRN (07:45)
[2017-04-26 08:00] VITALS: BP 143/67
[2017-04-26 08:53] VITALS: BP 138/89
[2017-04-26] MEDS: amLODIPine BESYLATE 5 MG TAB PO SCH (09:12)
[2017-04-26] MEDS: LEVOFLOXACIN 500MG 100 ML IV SCH (09:12)
[2017-04-26] MEDS: NICOTINE 21MG/24 HR TOPICAL PATCH TD SCH (09:14)
[2017-04-26] MEDS: oxyCODONE ER 20 MG TAB PO SCH ×2 (09:14→21:48)
[2017-04-26] MEDS: OXYCODONE HCL 5MG TAB PO PRN ×3 (10:03→17:45)
[2017-04-26 13:00] VITALS: BP 130/91
[2017-04-26] MEDS: ACETAMINOPHEN 500 MG TAB PO PRN (14:07)
[2017-04-26 17:00] VITALS: BP 124/67
[2017-04-26 21:30] VITALS: BP 147/75
[2017-04-26] MEDS: TEMAZEPAM 15 MG CAP PO PRN (21:46)
[2017-04-26] MEDS: guaiFENesin-DM 100/10mg/5ml SYR PO PRN (22:37)
[2017-04-27] MEDS: metroNIDAZOLE 500MG/100ML 100 ML IV SCH ×4 (00:13→17:42)
[2017-04-27] MEDS: OXYCODONE HCL 5MG TAB PO PRN ×6 (00:17→20:47)
[2017-04-27] MEDS: HYOSCYAMINE SULF 0.125 MG TAB PO SCH ×4 (00:18→17:43)
[2017-04-27] MEDS: SODIUM CHLORIDE 0.9% 1,000 ML IV SCH ×3 (00:18→22:00)
[2017-04-27] MEDS: guaiFENesin-DM 100/10mg/5ml SYR PO PRN ×3 (03:00→14:46)
[2017-04-27 05:00] VITALS: BP 149/106
[2017-04-27 06:07] LABS: Basophils # (auto) 0.1 uL; Basophils % (auto) 0.6 % (0.0-2.0); Eosinophils # (auto) 0.2 uL; Eosinophils % (auto) 1.6 % (0.0-7.0); Hematocrit 41.9 % (36.0-46.0); Lymphocytes # (auto) 1.6 uL; Lymphocytes % (auto) 16.8 % (10.0-50.0); Mean Corpuscular Hemoglobin 28.1 pg (28.0-32.0); Mean Corpuscular Hgb Conc. 33.4 g/dL (32.0-36.0); Mean Corpuscular Volume 84.1 fL (80.0-100.0); Monocytes # (auto) 0.9 uL; Monocytes % (auto) 8.9 % (0.0-12.0); Neutrophils # (auto) 6.9 uL; Neutrophils % (auto) 72.1 % (37.0-80.0); Nucleated Red Blood Cells % 0.1 %; Platelet Count (auto) 320 10^3/uL (140-450); Red Blood Cells 4.98 10^6/uL (4.0-5.20); White Blood Cell 9.6 10^3/uL (4.4-10.8)
[2017-04-27 06:28] LABS: BUN/Creatinine Ratio 15.2; Calcium 8.4 mg/dL (8.5-10.1); Potassium 3.5 mmol/L (3.5-5.1)
[2017-04-27] MEDS: InsuLIN REG 1unit/0.01ml Soln (100units/ml) SC SCH ×4 (06:44→21:55)
[2017-04-27] MEDS ORDERED: POTASSIUM CHL 20 Meq TABLET PO ONE (07:00)
[2017-04-27] MEDS: ONDANSETRON HCL 4 MG/2 ML VIAL IV PRN ×4 (07:04→20:47)
[2017-04-27] MEDS: ACCU-CHEK COMFORT CURVE STRIP VI SCH ×4 (07:05→21:56)
[2017-04-27] MEDS: ACETAMINOPHEN 500 MG TAB PO PRN ×3 (08:40→22:02)
[2017-04-27 09:00] VITALS: BP 178/91
[2017-04-27] MEDS: LEVOFLOXACIN 500MG 100 ML IV SCH (09:42)
[2017-04-27] MEDS: PANTOPRAZOLE 40 MG/10 ML VIAL IV SCH ×2 (09:42→21:47)
[2017-04-27] MEDS: amLODIPine BESYLATE 5 MG TAB PO SCH (09:43)
[2017-04-27] MEDS: OSELTAMIVIR 75 MG CAP PO SCH ×2 (09:43→21:48)
[2017-04-27] MEDS: oxyCODONE ER 20 MG TAB PO SCH ×2 (09:43→21:48)
[2017-04-27] MEDS: NICOTINE 21MG/24 HR TOPICAL PATCH TD SCH (09:44)
[2017-04-27] MEDS ORDERED: GOLYTELY 4L KIT PO ONE (11:00)
[2017-04-27 13:00] VITALS: BP 161/78
[2017-04-27] MEDS: LORazepam 0.5 MG TAB PO PRN (14:46)
[2017-04-27 16:22] LABS: Prothrombin Time 10.9 sec (9.37-12.3)
[2017-04-27 17:00] VITALS: BP 145/76
[2017-04-27 20:00] VITALS: BP 141/77
[2017-04-27 21:30] VITALS: BP 141/77
[2017-04-27] MEDS: TEMAZEPAM 15 MG CAP PO PRN (21:48)
[2017-04-28] MEDS: HYOSCYAMINE SULF 0.125 MG TAB PO SCH ×4 (00:05→18:08)
[2017-04-28] MEDS: metroNIDAZOLE 500MG/100ML 100 ML IV SCH ×4 (00:05→18:08)
[2017-04-28] MEDS: OXYCODONE HCL 5MG TAB PO PRN ×4 (03:12→18:09)
[2017-04-28 05:00] VITALS: BP 145/82
[2017-04-28] MEDS: SODIUM CHLORIDE 0.9% 1,000 ML IV SCH (06:18)
[2017-04-28] MEDS: InsuLIN REG 1unit/0.01ml Soln (100units/ml) SC SCH ×4 (06:53→22:00)
[2017-04-28] MEDS: ACCU-CHEK COMFORT CURVE STRIP VI SCH ×4 (06:53→22:00)
[2017-04-28 07:19] LABS: BUN/Creatinine Ratio 10.3; Calcium 7.9 mg/dL (8.5-10.1); Potassium 3.4 mmol/L (3.5-5.1)
[2017-04-28 07:50] LABS: Hematocrit 41.5 % (36.0-46.0); Hemoglobin 13.8 g/dL (12.2-16.2); Mean Corpuscular Hgb Conc. 33.3 g/dL (32.0-36.0); Mean Corpuscular Volume 84.1 fL (80.0-100.0); Platelet Count (auto) 262 10^3/uL (140-450); Red Blood Cells 4.93 10^6/uL (4.0-5.20); Red Cell Distribution Width 15.3 % (11.8-14.3)
[2017-04-28 07:52] LABS: Band Neutrophils % (manual) 0; Basophils % (manual) 0 (0.0-2.0); Blast Cells 0; Eosinophils % (manual) 0 (0-7); Metamyelocytes % 0; Myelocytes % 0; Promyelocytes % 0; Reactive Lymphocytes 0
[2017-04-28 08:20] LABS: Lymphocytes % (manual) 37 (10.0-50.0); Monocytes % (manual) 11 (0-12)
[2017-04-28] MEDS: ONDANSETRON HCL 4 MG/2 ML VIAL IV PRN ×4 (08:50→21:51)
[2017-04-28 09:00] VITALS: BP 147/116
[2017-04-28] MEDS ORDERED: MIDAZOLAM HCL 1MG/1ML-2 ML VIAL ONE ×2 (09:48→09:53)
[2017-04-28] MEDS ORDERED: PROPOFOL 10 MG/ML 20 ML IV ONE (09:48)
[2017-04-28] MEDS ORDERED: LIDOCAINE HCL 100 MG/5ML (2%) SYRG INJ IV ONE (09:48)
[2017-04-28] MEDS: NICOTINE 21MG/24 HR TOPICAL PATCH TD SCH (10:00)
[2017-04-28] MEDS: amLODIPine BESYLATE 5 MG TAB PO SCH (10:00)
[2017-04-28] MEDS ORDERED: HYDROmorphone HCL 2 MG/ML VL IV PRN (10:15)
[2017-04-28] MEDS ORDERED: ACCU-CHEK COMFORT CURVE STRIP VI ONE (10:15)
[2017-04-28] MEDS ORDERED: hydrALAZINE HCL 20 MG/ML VL IV PRN (10:15)
[2017-04-28] MEDS ORDERED: NALOXONE HCL 0.4 MG/ML VIAL IV PRN (10:15)
[2017-04-28] MEDS ORDERED: ONDANSETRON HCL 4 MG/2 ML VIAL IV ONE (10:15)
[2017-04-28] MEDS: LEVOFLOXACIN 500MG 100 ML IV SCH (12:27)
[2017-04-28] MEDS: oxyCODONE ER 20 MG TAB PO SCH ×2 (12:27→21:34)
[2017-04-28] MEDS: PANTOPRAZOLE 40 MG/10 ML VIAL IV SCH ×2 (12:27→21:34)
[2017-04-28] MEDS: OSELTAMIVIR 75 MG CAP PO SCH ×2 (12:28→21:34)
[2017-04-28 13:00] VITALS: BP 135/76
[2017-04-28] MEDS: CHOLESTYRAMINE 4 GM POWDER PO SCH ×2 (14:20→21:34)
[2017-04-28 17:00] VITALS: BP 113/69
[2017-04-28] MEDS: D5W/ SOD CHL 0.9%/KCL 20MEQ 1,000 ML IV SCH ×2 (18:07→19:15)
[2017-04-28] MEDS: LORazepam 0.5 MG TAB PO PRN (20:34)
[2017-04-28] MEDS: TEMAZEPAM 15 MG CAP PO PRN (21:52)
[2017-04-28 22:00] VITALS: BP 120/68
[2017-04-29] MEDS: HYOSCYAMINE SULF 0.125 MG TAB PO SCH ×2 (00:01→06:06)
[2017-04-29] MEDS: metroNIDAZOLE 500MG/100ML 100 ML IV SCH ×2 (00:01→06:06)
[2017-04-29] MEDS: OXYCODONE HCL 5MG TAB PO PRN ×2 (02:29→06:30)
[2017-04-29] MEDS: CHOLESTYRAMINE 4 GM POWDER PO SCH (06:06)
[2017-04-29] MEDS: InsuLIN REG 1unit/0.01ml Soln (100units/ml) SC SCH (06:27)
[2017-04-29] MEDS: ACCU-CHEK COMFORT CURVE STRIP VI SCH (06:27)
[2017-04-29] MEDS: ONDANSETRON HCL 4 MG/2 ML VIAL IV PRN (08:42)
[2017-04-29 09:00] VITALS: BP 135/86
[2017-04-29] MEDS ORDERED: PANT40TA2 PO (09:02)
[2017-04-29] MEDS ORDERED: CHL4PW PO (09:02)
[2017-04-29 09:35] VITALS: BP 135/86
== END 2017-04-29 13:05 | disposition home or self-care (01) | DRG 241 ==
LOC: EDUNIT# 07:17 → ER 07:17 → TELE 07:18 → TELE-WESTW 20:45
PROVIDERS: ADMIT Internal Medicine; ATTEND Internal Medicine
PROC: 0DB68ZX Excision of Stomach, Via Natural or Artificial Opening Endoscopic, Diagnostic (ICD-10-PCS; 2017-04-28)
PROC: 0DBE8ZX Excision of Large Intestine, Via Natural or Artificial Opening Endoscopic, Diagnostic (ICD-10-PCS; principal; 2017-04-28 09:45)
PROC: 0DB98ZX Excision of Duodenum, Via Natural or Artificial Opening Endoscopic, Diagnostic (ICD-10-PCS; 2017-04-28 09:45)
DX: K29.70 Gastritis, unspecified, without bleeding (principal); R65.10 Systemic inflammatory response syndrome (SIRS) of non-infectious origin without acute organ dysfunction; K76.0 Fatty (change of) liver, not elsewhere classified; E11.65 Type 2 diabetes mellitus with hyperglycemia; F11.20 Opioid dependence, uncomplicated; Z68.41 Body mass index [BMI] 40.0-44.9, adult; R19.7 Diarrhea, unspecified; E66.01 Morbid (severe) obesity due to excess calories; I10 Essential (primary) hypertension; E86.0 Dehydration; K42.9 Umbilical hernia without obstruction or gangrene; E11.9 Type 2 diabetes mellitus without complications; N39.0 Urinary tract infection, site not specified; F17.210 Nicotine dependence, cigarettes, uncomplicated; K44.9 Diaphragmatic hernia without obstruction or gangrene; K64.8 Other hemorrhoids; F41.9 Anxiety disorder, unspecified; G47.00 Insomnia, unspecified; M19.90 Unspecified osteoarthritis, unspecified site; M79.7 Fibromyalgia; Z86.73 Personal history of transient ischemic attack (TIA), and cerebral infarction without residual deficits; Z88.5 Allergy status to narcotic agent; Z88.8 Allergy status to other drugs, medicaments and biological substances; Z88.0 Allergy status to penicillin; Z79.899 Other long term (current) drug therapy; Z85.89 Personal history of malignant neoplasm of other organs and systems
CPT/HCPCS: 36415; 43239; 45380; 71045; 73600; 74176; 76705; 78226; 80048; 80053; 80061; 81001; 81025; 82150; 82378; 82784; 82962; 83036; 83516; 83690; 83735; 84484; 85007; 85025; 85027; 85610; 85652; 86141; 86255; 87045; 87086; 87400; 87493; 87899; 93005; 94761; 96361; 96374; 96375; 96376; C9113; J1815; J1956; J2250; J2405; J2704; J3490

== ENCOUNTER 2017-04-29 22:19 | Emergency (ER) | payer MEDICAID ==
[~2017-04-29] VITALS: Ht 170.2 cm; Wt 131.5 kg
[~2017-04-29 22:19] MED LIST changes: +CHL4PW PO; +PANT40TA2 PO
[2017-04-29 23:03] LABS: Basophils # (auto) 0.1 uL; Basophils % (auto) 0.7 % (0.0-2.0); Eosinophils # (auto) 0.1 uL; Eosinophils % (auto) 0.6 % (0.0-7.0); Hematocrit 46.9 % (36.0-46.0); Hemoglobin 15.3 g/dL (12.2-16.2); Lymphocytes # (auto) 2.8 uL; Mean Corpuscular Hemoglobin 27.4 pg (28.0-32.0); Mean Corpuscular Hgb Conc. 32.6 g/dL (32.0-36.0); Mean Corpuscular Volume 83.9 fL (80.0-100.0); Monocytes # (auto) 0.8 uL; Monocytes % (auto) 7.3 % (0.0-12.0); Neutrophils # (auto) 7.5 uL; Neutrophils % (auto) 66.4 % (37.0-80.0); Nucleated Red Blood Cells % 0.2 %; Platelet Count (auto) 358 10^3/uL (140-450); Red Blood Cells 5.59 10^6/uL (4.0-5.20); White Blood Cell 11.3 10^3/uL (4.4-10.8)
[2017-04-29] MEDS ORDERED: ONDANSETRON HCL 4 MG/2 ML VIAL ONE (23:12)
[2017-04-29 23:19] LABS: Albumin 3.5 g/dL (3.4-5.0); BUN/Creatinine Ratio 11.4; Calcium 8.8 mg/dL (8.5-10.1); Potassium 3.9 mmol/L (3.5-5.1)
[2017-04-29 23:21] LABS: Bilirubin, Total 0.3 mg/dL (0.2-1.0); Total Protein 7.5 g/dL (6.4-8.2)
[2017-04-29] MEDS ORDERED: ONDANSETRON HCL 4 MG/2 ML VIAL IV ONE (23:45)
[2017-04-30] MEDS ORDERED: SODIUM CHLORIDE 0.9% 1,000 ML IV ONE (00:30)
[2017-04-30] MEDS ORDERED: NALBUPHINE HCL 10 MG/1ml INJECTION IV ONE (00:30)
[2017-04-30 01:49] LABS: Urine Bacteria MOD /hpf (None Seen); Urine Blood Negative /uL (Negative); Urine Mucus FEW (None Seen); Urine WBC 1 /hpf (0 - 5)
[2017-04-30] MEDS ORDERED: MORPHINE SULFATE 4 MG/ML SYR/VIAL IV ONE (02:00)
[2017-04-30 03:58] VITALS: BP 143/78
== END 2017-04-30 03:45 | disposition home or self-care (01) ==
LOC: EDBD 22:19 → ER 22:19
DX: K29.70 Gastritis, unspecified, without bleeding (principal); I10 Essential (primary) hypertension; E11.9 Type 2 diabetes mellitus without complications; Z88.0 Allergy status to penicillin; Z86.73 Personal history of transient ischemic attack (TIA), and cerebral infarction without residual deficits; Z88.6 Allergy status to analgesic agent; Z88.8 Allergy status to other drugs, medicaments and biological substances
CPT/HCPCS: 36415; 74176; 80053; 81001; 83690; 85025; 96361; 96374; 96375; 99285; J2270; J2300; J2405

== ENCOUNTER 2017-08-13 02:28 | Emergency (ER) | payer MEDICAID ==
[~2017-08-13] VITALS: Ht 157.5 cm; Wt 136.1 kg
[2017-08-13 03:15] LABS: Basophils # (auto) 0.2 uL; Basophils % (auto) 1.2 % (0.0-2.0); Eosinophils # (auto) 0.1 uL; Eosinophils % (auto) 0.6 % (0.0-7.0); Hematocrit 42.7 % (36.0-46.0); Lymphocytes # (auto) 2.1 uL; Lymphocytes % (auto) 17.1 % (10.0-50.0); Mean Corpuscular Hemoglobin 28.3 pg (28.0-32.0); Mean Corpuscular Hgb Conc. 32.9 g/dL (32.0-36.0); Mean Corpuscular Volume 86.1 fL (80.0-100.0); Monocytes # (auto) 0.6 uL; Monocytes % (auto) 4.8 % (0.0-12.0); Neutrophils # (auto) 9.4 uL; Neutrophils % (auto) 76.3 % (37.0-80.0); Nucleated Red Blood Cells % 0.1 %; Platelet Count (auto) 349 10^3/uL (140-450); Red Blood Cells 4.96 10^6/uL (4.0-5.20); Red Cell Distribution Width 13.7 % (11.8-14.3); White Blood Cell 12.3 10^3/uL (4.4-10.8)
[2017-08-13] MEDS ORDERED: HALOPERIDOL LACTATE 5 MG/ML INJ VIAL IM ONE (03:30)
[2017-08-13 03:44] LABS: Albumin 3.8 g/dL (3.4-5.0); Anion Gap 14 (5-15); Blood Alcohol < 3.0 mg/dL (0-5); Blood Urea Nitrogen 11 mg/dL (7-18); Calcium 8.8 mg/dL (8.5-10.1); Carbon Dioxide 19 mmol/L (21-32); Chloride 105 mmol/L (98-107); Glucose 161 mg/dL (74-106); Potassium 3.5 mmol/L (3.5-5.1); Sodium 138 mmol/L (136-145)
[2017-08-13 03:46] LABS: Alanine Aminotransferase 26 U/L (13-56); Aspartate Aminotransferase 14 U/L (15-37); BUN/Creatinine Ratio 12.4; GFR African American 87 mL/min; GFR Non-African American 72 mL/min
[2017-08-13 03:48] LABS: Acetaminophen 35.4 ug/mL (10-30); Alkaline Phosphatase 87 U/L (45-117); Bilirubin, Total 0.4 mg/dL (0.2-1.0); Salicylate < 1.7 mg/dL (2.8-20.0); Total Protein 7.9 g/dL (6.4-8.2)
[2017-08-13 04:11] LABS: Urine Bacteria FEW /hpf (None Seen); Urine Blood Negative /uL (Negative); Urine Mucus FEW (None Seen); Urine Specific Gravity 1.022 (1.001-1.035); Urine WBC 2 /hpf (0 - 5)
[2017-08-13 04:26] LABS: Alcohol, Urine < 3.0 mg/dL (0-5); Amphetamine Screen, Urine NEGATIVE (NEGATIVE); Barbiturate Scree,Urine NEGATIVE (NEGATIVE); Benzodiazephine Screen, Urine NEGATIVE (NEGATIVE); Cannabinoid Screen, Urine NEGATIVE (NEGATIVE); Cocaine Screen, Urine NEGATIVE (NEGATIVE); Opiate Scree,Urine POSITIVE (NEGATIVE); Phencyclidine Screen, Urine NEGATIVE (NEGATIVE)
[2017-08-13] MEDS ORDERED: LORazepam 0.5 MG TAB PO ONE (08:00)
[2017-08-13] MEDS ORDERED: HYDROcodone-ACET 5/325MG TAB PO ONE (10:37)
[2017-08-13] MEDS ORDERED: oxyCODONE ER 10 MG TAB PO ONE (12:00)
[2017-08-13] MEDS ORDERED: PANTOPRAZOLE 40 MG TAB PO ONE (14:30)
[2017-08-13] MEDS ORDERED: ONDANSETRON ODT 4 MG TAB PO ONE ×2 (16:58→17:15)
[2017-08-13] MEDS: LORazepam 0.5 MG TAB PO SCH (17:03)
[2017-08-14] MEDS ORDERED: ONDANSETRON ODT 4 MG TAB PO ONE ×2 (04:00→21:00)
[2017-08-14] MEDS: HYDROcodone-ACET 5/325MG TAB PO SCH ×2 (04:03→09:47)
[2017-08-14] MEDS: LORazepam 0.5 MG TAB PO SCH ×3 (04:09→17:00)
[2017-08-14] MEDS ORDERED: oxyCODONE ER 10 MG TAB PO ONE (18:45)
[2017-08-14] MEDS ORDERED: LOPERAMIDE HCL 2 MG CAP PO ONE (21:00)
[2017-08-15] MEDS: LORazepam 0.5 MG TAB PO SCH ×4 (01:30→14:46)
[2017-08-15] MEDS: HYDROcodone-ACET 5/325MG TAB PO SCH ×2 (01:30→09:10)
[2017-08-15] MEDS ORDERED: ONDANSETRON ODT 4 MG TAB PO ONE (02:45)
[2017-08-15] MEDS ORDERED: ACETAMINOPHEN 325 MG TAB PO ONE (02:45)
[2017-08-15] MEDS: LISINOPRIL 10 MG TAB PO SCH (09:09)
[2017-08-15] MEDS: metFORMIN HYDROCHLORIDE 500 MG TAB PO SCH (09:10)
[2017-08-15] MEDS ORDERED: LOPERAMIDE HCL 2 MG CAP PO ONE (09:15)
[2017-08-15] MEDS ORDERED: ONDANSETRON HCL 4 MG/2 ML VIAL ONE (12:20)
[2017-08-15] MEDS ORDERED: ONDANSETRON HCL 4 MG/2 ML VIAL IM ONE (12:30)
[2017-08-15] MEDS ORDERED: PROMETHAZINE HCL 25 MG/ML 1ML IM ONE (14:45)
[2017-08-15] MEDS ORDERED: oxyCODONE ER 10 MG TAB PO ONE ×2 (18:00→18:01)
[2017-08-16] MEDS: LORazepam 0.5 MG TAB PO SCH ×3 (06:00→21:57)
[2017-08-16] MEDS ORDERED: ONDANSETRON ODT 4 MG TAB PO PRN (09:30)
[2017-08-16 09:35] VITALS: BP 151/93
[2017-08-16] MEDS: LISINOPRIL 10 MG TAB PO SCH (09:56)
[2017-08-16] MEDS: metFORMIN HYDROCHLORIDE 500 MG TAB PO SCH (10:00)
[2017-08-16] MEDS ORDERED: oxyCODONE ER 10 MG TAB PO SCH (10:00)
[2017-08-16] MEDS ORDERED: ONDANSETRON HCL 4 MG/2 ML VIAL IM ONE (11:15)
[2017-08-16] MEDS ORDERED: MIRTAZAPINE 30 MG TAB PO PRN (13:30)
[2017-08-16] MEDS ORDERED: NICOTINE 21MG/24 HR TOPICAL PATCH TD SCH (14:00)
[2017-08-16] MEDS ORDERED: DULoxetine HCL 30 MG CAP PO SCH (14:00)
== END 2017-08-13 23:32 | disposition home or self-care (01) ==
LOC: ER 02:30
DX: F31.9 Bipolar disorder, unspecified (principal); E11.9 Type 2 diabetes mellitus without complications; I10 Essential (primary) hypertension; F17.210 Nicotine dependence, cigarettes, uncomplicated; Z86.73 Personal history of transient ischemic attack (TIA), and cerebral infarction without residual deficits
CPT/HCPCS: 36415; 71045; 80053; 80307; 80320; 80329; 81001; 81025; 82962; 84702; 85025; 93005; 96372; 99285; J1630; Q0162; J2405

== ENCOUNTER 2017-08-17 21:23 | Emergency (ER) | payer MEDICAID ==
[~2017-08-17] VITALS: Ht 170.2 cm; Wt 136.1 kg
[2017-08-17 22:24] LABS: Eosinophils # (auto) 0.1 uL; Nucleated Red Blood Cells % 0.1 %; Red Cell Distribution Width 13.6 % (11.8-14.3)
[2017-08-17 22:25] LABS: Basophils # (auto) 0.2 uL; Basophils % (auto) 0.9 % (0.0-2.0); Eosinophils % (auto) 0.6 % (0.0-7.0); Hematocrit 46.2 % (36.0-46.0); Hemoglobin 15.6 g/dL (12.2-16.2); Lymphocytes # (auto) 3.8 uL; Lymphocytes % (auto) 21.8 % (10.0-50.0); Mean Corpuscular Hgb Conc. 33.7 g/dL (32.0-36.0); Mean Corpuscular Volume 86.2 fL (80.0-100.0); Neutrophils # (auto) 12.2 uL; Neutrophils % (auto) 70.7 % (37.0-80.0); Platelet Count (auto) 461 10^3/uL (140-450); Red Blood Cells 5.36 10^6/uL (4.0-5.20); White Blood Cell 17.3 10^3/uL (4.4-10.8)
[2017-08-17 22:39] LABS: Anion Gap 11 (5-15); Blood Urea Nitrogen 20 mg/dL (7-18); Calcium 9.4 mg/dL (8.5-10.1); Carbon Dioxide 22 mmol/L (21-32); Chloride 106 mmol/L (98-107); Glucose 120 mg/dL (74-106); Lipase 309 U/L (73-393); Potassium 4.3 mmol/L (3.5-5.1); Sodium 139 mmol/L (136-145)
[2017-08-17 22:41] LABS: Blood Alcohol < 3.0 mg/dL (0-5)
[2017-08-17 22:44] LABS: Acetaminophen < 2.0 ug/mL (10-30); Salicylate < 1.7 mg/dL (2.8-20.0)
[2017-08-17 23:01] LABS: Alanine Aminotransferase 53 U/L (13-56); Alkaline Phosphatase 88 U/L (45-117); Aspartate Aminotransferase 35 U/L (15-37); BUN/Creatinine Ratio 19.8; Bilirubin, Total 0.9 mg/dL (0.2-1.0); GFR African American 75 mL/min; GFR Non-African American 62 mL/min; Total Protein 8.3 g/dL (6.4-8.2)
[2017-08-17] MEDS ORDERED: LORazepam 2MG/ML-1ML VIAL IM ONE (23:45)
[2017-08-18 00:29] LABS: Urine Pregnacy Test Negative (Negative)
[2017-08-18 00:40] LABS: Urine Bacteria FEW /hpf (None Seen); Urine Blood Negative /uL (Negative); Urine Mucus FEW (None Seen); Urine Specific Gravity 1.031 (1.001-1.035); Urine WBC 2 /hpf (0 - 5)
[2017-08-18 00:45] LABS: Alcohol, Urine < 3.0 mg/dL (0-5); Amphetamine Screen, Urine NEGATIVE (NEGATIVE); Barbiturate Scree,Urine NEGATIVE (NEGATIVE); Benzodiazephine Screen, Urine POSITIVE (NEGATIVE); Cannabinoid Screen, Urine NEGATIVE (NEGATIVE); Cocaine Screen, Urine NEGATIVE (NEGATIVE); Phencyclidine Screen, Urine NEGATIVE (NEGATIVE)
[2017-08-18 00:50] LABS: Opiate Scree,Urine NEGATIVE (NEGATIVE)
[2017-08-18 02:38] LABS: Basophils # (auto) 0.2 uL; Basophils % (auto) 1.5 % (0.0-2.0); Eosinophils # (auto) 0.1 uL; Eosinophils % (auto) 0.7 % (0.0-7.0); Hematocrit 45.1 % (36.0-46.0); Hemoglobin 15.1 g/dL (12.2-16.2); Lymphocytes # (auto) 3.5 uL; Lymphocytes % (auto) 23.6 % (10.0-50.0); Mean Corpuscular Hemoglobin 28.7 pg (28.0-32.0); Mean Corpuscular Hgb Conc. 33.5 g/dL (32.0-36.0); Mean Corpuscular Volume 85.6 fL (80.0-100.0); Monocytes # (auto) 0.9 uL; Monocytes % (auto) 6.1 % (0.0-12.0); Neutrophils % (auto) 68.1 % (37.0-80.0); Platelet Count (auto) 412 10^3/uL (140-450); Red Blood Cells 5.27 10^6/uL (4.0-5.20); Red Cell Distribution Width 13.6 % (11.8-14.3); White Blood Cell 14.7 10^3/uL (4.4-10.8)
[2017-08-18] MEDS ORDERED: ONDANSETRON HCL 4 MG/2 ML VIAL IM ONE ×2 (02:45→06:00)
[2017-08-18] MEDS ORDERED: KETOROLAC TROMETH 60MG/2ML VIAL IM ONE (04:00)
[2017-08-18] MEDS ORDERED: cloNIDine HCL 0.1 MG TAB PO ONE ×2 (04:00→05:15)
[2017-08-18] MEDS ORDERED: ACETAMINOPHEN 325 MG TAB PO ONE (05:15)
[2017-08-18] MEDS: clonazePAM 0.5 MG TAB PO SCH ×2 (11:25→22:43)
[2017-08-18] MEDS: amLODIPine BESYLATE 5 MG TAB PO SCH (11:25)
[2017-08-18] MEDS ORDERED: clonazePAM 0.5 MG TAB PO ONE (16:15)
[2017-08-18] MEDS ORDERED: ACETAMINOPHEN 500 MG TAB PO ONE (16:15)
[2017-08-19] MEDS ORDERED: ONDANSETRON ODT 4 MG TAB PO ONE (03:00)
[2017-08-19] MEDS ORDERED: ONDANSETRON HCL 4 MG/2 ML VIAL IV ONE (07:45)
[2017-08-19] MEDS: amLODIPine BESYLATE 5 MG TAB PO SCH (10:24)
[2017-08-19] MEDS: clonazePAM 0.5 MG TAB PO SCH (10:24)
[2017-08-19] MEDS ORDERED: clonazePAM 0.5 MG TAB PO ONE (13:45)
[2017-08-19] MEDS ORDERED: HALOPERIDOL LACTATE 5 MG/ML INJ VIAL ONE (13:58)
[2017-08-19] MEDS ORDERED: diphenhdrAMINE HCL 50 MG/1 ML VL ONE (13:58)
[2017-08-19] MEDS ORDERED: LORazepam 2MG/ML-1ML VIAL ONE (13:59)
[2017-08-19] MEDS ORDERED: HALOPERIDOL LACTATE 5 MG/ML INJ VIAL IM ONE (14:00)
[2017-08-19] MEDS ORDERED: LORazepam 2MG/ML-1ML VIAL IM ONE (14:00)
[2017-08-19] MEDS ORDERED: diphenhdrAMINE HCL 50 MG/1 ML VL IM ONE (14:00)
[2017-08-19 14:15] VITALS: BP 133/79
== END 2017-08-19 22:56 | disposition left against medical advice (07) ==
LOC: ER 21:23
DX: F32.9 Major depressive disorder, single episode, unspecified (principal); F41.9 Anxiety disorder, unspecified; E11.9 Type 2 diabetes mellitus without complications; I10 Essential (primary) hypertension; F17.210 Nicotine dependence, cigarettes, uncomplicated; R45.851 Suicidal ideations; Z86.73 Personal history of transient ischemic attack (TIA), and cerebral infarction without residual deficits
CPT/HCPCS: 36415; 80053; 80307; 80320; 80329; 81001; 81025; 83690; 85025; 96372; 96374; 99285; J2060; J2405; Q0162

== ENCOUNTER 2018-11-19 20:24 | Emergency (ER) | payer MEDICAID ==
[~2018-11-19] VITALS: Ht 170.2 cm; Wt 68.0 kg
[2018-11-19 21:29] LABS: Basophils # (auto) 0.1 uL; Basophils % (auto) 0.8 % (0.0-2.0); Eosinophils # (auto) 0.1 uL; Eosinophils % (auto) 0.9 % (0.0-7.0); Hematocrit 37.8 % (36.0-46.0); Hemoglobin 12.6 g/dL (12.2-16.2); Lymphocytes # (auto) 1.9 uL; Lymphocytes % (auto) 18.2 % (10.0-50.0); Mean Corpuscular Hemoglobin 28.9 pg (28.0-32.0); Mean Corpuscular Hgb Conc. 33.3 g/dL (32.0-36.0); Mean Corpuscular Volume 86.8 fL (80.0-100.0); Monocytes # (auto) 0.7 uL; Monocytes % (auto) 6.7 % (0.0-12.0); Neutrophils # (auto) 7.7 uL; Neutrophils % (auto) 73.4 % (37.0-80.0); Platelet Count (auto) 294 10^3/uL (140-450); Red Blood Cells 4.36 10^6/uL (4.0-5.20); White Blood Cell 10.5 10^3/uL (4.4-10.8)
[2018-11-19] MEDS ORDERED: ONDANSETRON HCL 4 MG/2 ML VIAL IV ONE (21:30)
[2018-11-19 21:43] LABS: Alanine Aminotransferase 18 U/L (13-56); Albumin 2.9 g/dL (3.4-5.0); Anion Gap 5 (5-15); Aspartate Aminotransferase 8 U/L (15-37); BUN/Creatinine Ratio 13.6; Blood Urea Nitrogen 11 mg/dL (7-18); Calcium 8.2 mg/dL (8.5-10.1); Carbon Dioxide 28 mmol/L (21-32); Chloride 107 mmol/L (98-107); GFR African American 96 mL/min; GFR Non-African American 80 mL/min; Glucose 115 mg/dL (74-106); Potassium 3.8 mmol/L (3.5-5.1); Sodium 140 mmol/L (136-145)
[2018-11-19 21:47] LABS: Alkaline Phosphatase 68 U/L (45-117); Bilirubin, Total 0.3 mg/dL (0.2-1.0); Total Protein 6.2 g/dL (6.4-8.2)
[2018-11-19] MEDS ORDERED: LORazepam 2MG/ML-1ML VIAL IV ONE (22:00)
[2018-11-19 22:36] LABS: INR < 0.93 (0.9-1.15); Partial Thromboplastin Time 23.8 sec (23.64-32.05)
[2018-11-20] MEDS ORDERED: FUROSEMIDE 20 MG/2 ML VIAL IV ONE (02:15)
[2018-11-20 02:40] LABS: Urine Bacteria FEW /hpf (None Seen); Urine Blood Negative /uL (Negative); Urine Mucus FEW (None Seen); Urine Specific Gravity 1.015 (1.001-1.035); Urine WBC <1 /hpf (0 - 5)
[2018-11-20 04:00] VITALS: BP 145/85
[2018-11-20] MEDS ORDERED: PROMETHAZINE HCL 25 MG/ML 1ML IV ONE (04:00)
[2018-11-20] MEDS: HYDROcodone-ACET 10/325MG TAB PO ONE ×2 (04:15→05:15)
== END 2018-11-20 06:09 | disposition home or self-care (01) ==
LOC: EDBD 20:24 → ER 20:27
DX: K21.0 Gastro-esophageal reflux disease with esophagitis (principal); M54.5 Low back pain; F41.9 Anxiety disorder, unspecified; F11.20 Opioid dependence, uncomplicated; E66.9 Obesity, unspecified; E11.9 Type 2 diabetes mellitus without complications; I11.0 Hypertensive heart disease with heart failure; I50.9 Heart failure, unspecified; E78.5 Hyperlipidemia, unspecified; F32.9 Major depressive disorder, single episode, unspecified; F17.210 Nicotine dependence, cigarettes, uncomplicated; Z68.23 Body mass index [BMI] 23.0-23.9, adult; Z86.73 Personal history of transient ischemic attack (TIA), and cerebral infarction without residual deficits
CPT/HCPCS: 36415; 71046; 80053; 81001; 81025; 83880; 84484; 84702; 85025; 85610; 85730; 93005; 93970; 96374; 96375; 99284; J1940; J2060; J2405

== ENCOUNTER 2019-12-20 22:09 | Emergency (ER) | payer MEDICAID ==
[~2019-12-20] VITALS: Ht 167.6 cm; Wt 136.1 kg
[~2019-12-20 22:09] MED LIST changes: +ALPR1TAB2 PO; -AML5T PO; -CHL4PW PO; +DICL1GEL50 TOP; +LISI-646 PO; -METF-370 PO; +METO-6 PO; -PANT40TA2 PO
[2019-12-20] MEDS ORDERED: NIFEdipine 10 MG CAP PO ONE (22:30)
[2019-12-20] MEDS ORDERED: ONDANSETRON HCL 4 MG/2 ML VIAL IV ONE ×2 (22:45→23:00)
[2019-12-20] MEDS ORDERED: HYDROmorphone HCL 2 MG/ML VL IV ONE (23:00)
[2019-12-20] MEDS ORDERED: SODIUM CHLORIDE 0.9% 1,000 ML IVB ONE (23:00)
[2019-12-20 23:29] LABS: Basophils # (auto) 0.1 10 ^3/uL (0-0.2); Basophils % (auto) 1.2 % (0.0-2.0); Eosinophils # (auto) 0.2 10 ^3/uL (0-0.8); Eosinophils % (auto) 1.9 % (0.0-7.0); Hematocrit 42.1 % (36.0-46.0); Hemoglobin 14.4 g/dL (12.2-16.2); Lymphocytes # (auto) 3.1 10 ^3/uL (0.4-5.4); Lymphocytes % (auto) 29.4 % (10.0-50.0); Mean Corpuscular Hemoglobin 29.1 pg (28.0-32.0); Mean Corpuscular Hgb Conc. 34.1 g/dL (32.0-36.0); Mean Corpuscular Volume 85.3 fL (80.0-100.0); Monocytes # (auto) 0.7 10 ^3/uL (0-1.3); Monocytes % (auto) 6.5 % (0.0-12.0); Neutrophils # (auto) 6.4 10 ^3/uL (1.6-8.6); Nucleated Red Blood Cells % 0.1 %; Platelet Count (auto) 333 10^3/uL (140-450); Red Blood Cells 4.94 10^6/uL (4.0-5.20); Red Cell Distribution Width 14.4 % (11.8-14.3); White Blood Cell 10.5 10^3/uL (4.4-10.8)
[2019-12-20 23:45] LABS: INR 0.92 (0.9-1.15); Partial Thromboplastin Time 22.9 sec (23.0-31.2)
[2019-12-20] MEDS ORDERED: hydrALAZINE HCL 20 MG/ML VL IV ONE (23:45)
[2019-12-20 23:49] LABS: Amylase 34 U/L (25-115); Anion Gap 9 (5-15); Blood Urea Nitrogen 9 mg/dL (7-18); Calcium 8.9 mg/dL (8.5-10.1); Carbon Dioxide 26 mmol/L (21-32); Chloride 107 mmol/L (98-107); Glucose 139 mg/dL (74-106); Lipase 102 U/L (73-393); Magnesium 1.8 mg/dL (1.6-2.6); Potassium 3.6 mmol/L (3.5-5.1); Sodium 142 mmol/L (136-145)
[2019-12-20 23:52] LABS: Alanine Aminotransferase 24 U/L (13-56); Aspartate Aminotransferase 10 U/L (15-37); BUN/Creatinine Ratio 12.7; GFR African American 111 mL/min; GFR Non-African American 92 mL/min
[2019-12-20 23:53] LABS: Urine Bacteria FEW /hpf (None Seen); Urine Blood Negative /uL (Negative); Urine Mucus FEW (None Seen); Urine Specific Gravity 1.013 (1.001-1.035); Urine WBC 2 /hpf (0 - 5)
[2019-12-20 23:57] LABS: Alkaline Phosphatase 83 U/L (45-117); Bilirubin, Total 0.2 mg/dL (0.2-1.0); Total Protein 6.5 g/dL (6.4-8.2)
[2019-12-21] MEDS ORDERED: HYDROmorphone HCL 2 MG/ML VL IV ONE (04:00)
[2019-12-21] MEDS ORDERED: ONDANSETRON HCL 4 MG/2 ML VIAL IV ONE (04:15)
[2019-12-21 04:39] VITALS: BP 152/105
== END 2019-12-21 04:50 | disposition home or self-care (01) ==
LOC: ER 22:30
DX: E86.0 Dehydration (principal); K52.9 Noninfective gastroenteritis and colitis, unspecified; I11.0 Hypertensive heart disease with heart failure; I50.9 Heart failure, unspecified; E11.9 Type 2 diabetes mellitus without complications; E78.5 Hyperlipidemia, unspecified; Z90.49 Acquired absence of other specified parts of digestive tract; Z32.02 Encounter for pregnancy test, result negative; Z86.73 Personal history of transient ischemic attack (TIA), and cerebral infarction without residual deficits
CPT/HCPCS: 36415; 36600; 80053; 81001; 81025; 82010; 82150; 82805; 83690; 83735; 84484; 85025; 85610; 85730; 96361; 96374; 96375; 96376; 99285; J1170; J2405; J7030

== ENCOUNTER 2020-01-02 09:01 | Emergency (ER) | payer MEDICAID ==
[~2020-01-02] VITALS: Ht 167.6 cm; Wt 138.3 kg
[2020-01-02 09:41] LABS: Basophils # (auto) 0.1 10 ^3/uL (0-0.2); Basophils % (auto) 0.6 % (0.0-2.0); Eosinophils # (auto) 0.1 10 ^3/uL (0-0.8); Eosinophils % (auto) 0.7 % (0.0-7.0); Hematocrit 46.9 % (36.0-46.0); Hemoglobin 15.5 g/dL (12.2-16.2); Lymphocytes # (auto) 1.9 10 ^3/uL (0.4-5.4); Lymphocytes % (auto) 18.7 % (10.0-50.0); Mean Corpuscular Hemoglobin 28.6 pg (28.0-32.0); Mean Corpuscular Hgb Conc. 33.1 g/dL (32.0-36.0); Mean Corpuscular Volume 86.4 fL (80.0-100.0); Monocytes # (auto) 0.5 10 ^3/uL (0-1.3); Monocytes % (auto) 5.2 % (0.0-12.0); Neutrophils # (auto) 7.6 10 ^3/uL (1.6-8.6); Neutrophils % (auto) 74.8 % (37.0-80.0); Nucleated Red Blood Cells % 0.2 %; Platelet Count (auto) 328 10^3/uL (140-450); Red Blood Cells 5.42 10^6/uL (4.0-5.20); Red Cell Distribution Width 14.7 % (11.8-14.3); White Blood Cell 10.1 10^3/uL (4.4-10.8)
[2020-01-02 09:54] LABS: Albumin 3.6 g/dL (3.4-5.0); Calcium 9.2 mg/dL (8.5-10.1)
[2020-01-02 10:00] LABS: BUN/Creatinine Ratio 9.2; Bilirubin, Total 0.5 mg/dL (0.2-1.0); Total Protein 7.4 g/dL (6.4-8.2)
[2020-01-02] MEDS ORDERED: HYDROmorphone HCL 2 MG/ML VL IV ONE (11:15)
[2020-01-02] MEDS ORDERED: ONDANSETRON HCL 4 MG/2 ML VIAL IV ONE (11:15)
[2020-01-02 11:43] LABS: Amylase 23 U/L (25-115); Lipase 80 U/L (73-393)
[2020-01-02] MEDS ORDERED: cefTRIAXone 1GM/50ML D5W 50 ML IV ONE (12:45)
[2020-01-02 13:29] VITALS: BP 141/79
== END 2020-01-02 13:33 | disposition home or self-care (01) ==
LOC: ER 09:01
DX: K52.9 Noninfective gastroenteritis and colitis, unspecified (principal); K42.9 Umbilical hernia without obstruction or gangrene; I11.0 Hypertensive heart disease with heart failure; I50.9 Heart failure, unspecified; E11.9 Type 2 diabetes mellitus without complications; E78.5 Hyperlipidemia, unspecified; J44.9 Chronic obstructive pulmonary disease, unspecified; Z79.899 Other long term (current) drug therapy; Z88.5 Allergy status to narcotic agent; Z88.0 Allergy status to penicillin; Z88.8 Allergy status to other drugs, medicaments and biological substances; Z20.828 Contact with and (suspected) exposure to other viral communicable diseases
CPT/HCPCS: 36415; 71045; 74176; 80053; 82150; 83605; 83690; 85025; 87040; 87426; 96365; 96375; 99285; J0696; J1170; J2405

== ENCOUNTER 2020-01-05 18:14 | Emergency (ER) | payer MEDICAID ==
[~2020-01-05] VITALS: Ht 165.1 cm; Wt 113.4 kg
[2020-01-05] MEDS ORDERED: ONDANSETRON HCL 4 MG/2 ML VIAL IV ONE (19:30)
[2020-01-05] MEDS ORDERED: HYDROmorphone HCL 2 MG/ML VL IV ONE (19:45)
[2020-01-05 22:32] LABS: Basophils # (auto) 0.1 10 ^3/uL (0-0.2); Basophils % (auto) 0.4 % (0.0-2.0); Eosinophils # (auto) 0.1 10 ^3/uL (0-0.8); Eosinophils % (auto) 1.1 % (0.0-7.0); Hematocrit 45.6 % (36.0-46.0); Hemoglobin 15.1 g/dL (12.2-16.2); Mean Corpuscular Hemoglobin 28.7 pg (28.0-32.0); Mean Corpuscular Hgb Conc. 33.1 g/dL (32.0-36.0); Mean Corpuscular Volume 86.9 fL (80.0-100.0); Monocytes # (auto) 0.9 10 ^3/uL (0-1.3); Monocytes % (auto) 7.1 % (0.0-12.0); Neutrophils % (auto) 68.4 % (37.0-80.0); Nucleated Red Blood Cells % 0.9 %; Platelet Count (auto) 309 10^3/uL (140-450); Red Blood Cells 5.24 10^6/uL (4.0-5.20); Red Cell Distribution Width 14.6 % (11.8-14.3); White Blood Cell 13.2 10^3/uL (4.4-10.8)
[2020-01-05 22:41] LABS: Albumin 3.4 g/dL (3.4-5.0); Amylase 34 U/L (25-115); Anion Gap 8 (5-15); Blood Urea Nitrogen 13 mg/dL (7-18); Calcium 8.6 mg/dL (8.5-10.1); Carbon Dioxide 24 mmol/L (21-32); Chloride 109 mmol/L (98-107); Glucose 109 mg/dL (74-106); Lipase 188 U/L (73-393); Magnesium 2.5 mg/dL (1.6-2.6); Potassium 3.4 mmol/L (3.5-5.1); Sodium 141 mmol/L (136-145)
[2020-01-05] MEDS ORDERED: LORazepam 2MG/ML-1ML VIAL IV ONE (22:45)
[2020-01-05 22:48] LABS: Alanine Aminotransferase 19 U/L (13-56); Alkaline Phosphatase 75 U/L (45-117); Aspartate Aminotransferase 15 U/L (15-37); BUN/Creatinine Ratio 16.9; Bilirubin, Total 0.4 mg/dL (0.2-1.0); GFR African American 101 mL/min; GFR Non-African American 84 mL/min; Total Protein 7.1 g/dL (6.4-8.2)
[2020-01-05 23:38] VITALS: BP 142/63
== END 2020-01-05 23:48 | disposition home or self-care (01) ==
LOC: ER 18:14
DX: K29.00 Acute gastritis without bleeding (principal); K21.9 Gastro-esophageal reflux disease without esophagitis; I11.0 Hypertensive heart disease with heart failure; I50.9 Heart failure, unspecified; J44.9 Chronic obstructive pulmonary disease, unspecified; E11.9 Type 2 diabetes mellitus without complications; E78.00 Pure hypercholesterolemia, unspecified; Z87.11 Personal history of peptic ulcer disease; Z86.73 Personal history of transient ischemic attack (TIA), and cerebral infarction without residual deficits; F17.210 Nicotine dependence, cigarettes, uncomplicated; Z90.49 Acquired absence of other specified parts of digestive tract; Z98.890 Other specified postprocedural states; Z79.899 Other long term (current) drug therapy; Z88.0 Allergy status to penicillin; Z88.8 Allergy status to other drugs, medicaments and biological substances; Z88.5 Allergy status to narcotic agent
CPT/HCPCS: 36415; 71045; 74176; 80053; 82150; 83690; 83735; 84484; 85025; 87426; 93005; 96374; 96375; 99285; J1170; J2405

== ENCOUNTER 2020-01-30 17:27 | Emergency (ER) | payer MEDICAID ==
[~2020-01-30] VITALS: Ht 167.6 cm; Wt 140.6 kg
[2020-01-30 18:04] LABS: Basophils # (auto) 0.1 10 ^3/uL (0-0.2); Basophils % (auto) 0.9 % (0.0-2.0); Eosinophils # (auto) 0.1 10 ^3/uL (0-0.8); Eosinophils % (auto) 0.6 % (0.0-7.0); Hematocrit 48.9 % (36.0-46.0); Hemoglobin 16.1 g/dL (12.2-16.2); Lymphocytes # (auto) 2.9 10 ^3/uL (0.4-5.4); Mean Corpuscular Hemoglobin 28.4 pg (28.0-32.0); Mean Corpuscular Volume 86.1 fL (80.0-100.0); Monocytes # (auto) 0.9 10 ^3/uL (0-1.3); Neutrophils # (auto) 11.2 10 ^3/uL (1.6-8.6); Neutrophils % (auto) 73.5 % (37.0-80.0); Platelet Count (auto) 348 10^3/uL (140-450); Red Blood Cells 5.68 10^6/uL (4.0-5.20); Red Cell Distribution Width 14.6 % (11.8-14.3); White Blood Cell 15.2 10^3/uL (4.4-10.8)
[2020-01-30 18:32] LABS: Albumin 3.6 g/dL (3.4-5.0); Calcium 9.1 mg/dL (8.5-10.1); Potassium 3.6 mmol/L (3.5-5.1)
[2020-01-30 18:35] LABS: BUN/Creatinine Ratio 12.5; Bilirubin, Total 0.3 mg/dL (0.2-1.0); Total Protein 7.6 g/dL (6.4-8.2)
[2020-01-30] MEDS ORDERED: ONDANSETRON HCL 4 MG/2 ML VIAL IV ONE (23:00)
[2020-01-31] MEDS ORDERED: SODIUM CHLORIDE 0.9% 1,000 ML IV ONE (02:15)
[2020-01-31] MEDS ORDERED: LORazepam 2MG/ML-1ML VIAL IV ONE (03:15)
[2020-01-31 03:17] LABS: Urine Amorphous Crystal FEW /hpf (None Seen); Urine Bacteria MANY /hpf (None Seen); Urine Blood Negative /uL (Negative); Urine Mucus FEW (None Seen); Urine Specific Gravity 1.027 (1.001-1.035); Urine WBC 8 /hpf (0 - 5)
[2020-01-31] MEDS ORDERED: PROMETHAZINE HCL 25 MG/ML 1ML IV ONE (03:30)
[2020-01-31 05:02] LABS: INR 0.97 (0.9-1.15); Partial Thromboplastin Time 23.4 sec (23.0-31.2)
[2020-01-31] MEDS ORDERED: HYDROmorphone HCL 2 MG/ML VL IV ONE (05:15)
[2020-01-31 06:00] VITALS: BP 170/110
== END 2020-01-31 06:42 | disposition home or self-care (01) ==
LOC: ER 17:28
DX: K56.7 Ileus, unspecified (principal); R11.2 Nausea with vomiting, unspecified; R19.7 Diarrhea, unspecified; F11.20 Opioid dependence, uncomplicated; E86.0 Dehydration; M54.5 Low back pain; G89.29 Other chronic pain; F17.210 Nicotine dependence, cigarettes, uncomplicated; I10 Essential (primary) hypertension; E11.9 Type 2 diabetes mellitus without complications; E78.5 Hyperlipidemia, unspecified; Z79.899 Other long term (current) drug therapy; Z88.6 Allergy status to analgesic agent; Z88.0 Allergy status to penicillin; Z88.8 Allergy status to other drugs, medicaments and biological substances
CPT/HCPCS: 36415; 74176; 80053; 81001; 83880; 85025; 85379; 85610; 85730; 96361; 96374; 96375; 99285; J1170; J2060; J2405; J2550; J7030

== ENCOUNTER 2020-04-24 17:55 | Inpatient (IN) | payer MEDICAID ==
[~2020-04-24] VITALS: Ht 167.6 cm; Wt 163.3 kg
[~2020-04-24 17:55] MED LIST changes: +ALBUAER3 IN; -ALPR1TAB2 PO; -DICL1GEL50 TOP; +LEVO250T69 PO; +NYS15PW TOP; -OXYC30TA50 PO; +PRED20TA2 PO
[2020-04-24] MEDS ORDERED: MORPHINE SULFATE 4 MG/ML SYR/VIAL IV ONE (18:30)
[2020-04-24] MEDS ORDERED: ONDANSETRON HCL 4 MG/2 ML VIAL IV ONE (18:30)
[2020-04-24] MEDS ORDERED: LORazepam 2MG/ML-1ML VIAL IV ONE (18:30)
[2020-04-24] MEDS ORDERED: HYDROmorphone HCL 2 MG/ML VL IV ONE (20:00)
[2020-04-24 20:01] LABS: Basophils # (auto) 0.1 10 ^3/uL (0-0.2); Basophils % (auto) 0.4 % (0.0-2.0); Eosinophils # (auto) 0 10 ^3/uL (0-0.8); Eosinophils % (auto) 0.1 % (0.0-7.0); Hematocrit 44.8 % (36.0-46.0); Hemoglobin 14.9 g/dL (12.2-16.2); Lymphocytes # (auto) 2.9 10 ^3/uL (0.4-5.4); Lymphocytes % (auto) 19.1 % (10.0-50.0); Mean Corpuscular Hemoglobin 28.9 pg (28.0-32.0); Mean Corpuscular Hgb Conc. 33.3 g/dL (32.0-36.0); Mean Corpuscular Volume 86.9 fL (80.0-100.0); Monocytes # (auto) 1.2 10 ^3/uL (0-1.3); Monocytes % (auto) 7.5 % (0.0-12.0); Neutrophils # (auto) 11.1 10 ^3/uL (1.6-8.6); Neutrophils % (auto) 72.9 % (37.0-80.0); Nucleated Red Blood Cells % 0.1 %; Platelet Count (auto) 350 10^3/uL (140-450); Red Blood Cells 5.16 10^6/uL (4.0-5.20); Red Cell Distribution Width 14.4 % (11.8-14.3); White Blood Cell 15.3 10^3/uL (4.4-10.8)
[2020-04-24 20:26] LABS: Albumin 3.2 g/dL (3.4-5.0); Anion Gap 5 (5-15); Blood Urea Nitrogen 25 mg/dL (7-18); Calcium 8.3 mg/dL (8.5-10.1); Carbon Dioxide 25 mmol/L (21-32); Chloride 104 mmol/L (98-107); Glucose 324 mg/dL (74-106); Potassium 3.4 mmol/L (3.5-5.1); Sodium 134 mmol/L (136-145)
[2020-04-24 20:31] LABS: Alanine Aminotransferase 17 U/L (13-56); Alkaline Phosphatase 94 U/L (45-117); Aspartate Aminotransferase 10 U/L (15-37); Bilirubin, Total 0.3 mg/dL (0.2-1.0); GFR African American 75 mL/min; GFR Non-African American 62 mL/min; Total Protein 7.3 g/dL (6.4-8.2)
[2020-04-24] MEDS ORDERED: FUROSEMIDE 40 MG/4 ML VIAL IV ONE (20:45)
[2020-04-24] MEDS ORDERED: POTASSIUM EFFERVESENT TAB 25 MEQ PO ONE (21:45)
[2020-04-24] MEDS ORDERED: NITROGLYCERIN 0.4 MG SL TAB SL PRN (23:00)
[2020-04-24] MEDS ORDERED: ONDANSETRON HCL 4 MG/2 ML VIAL IV PRN (23:00)
[2020-04-24] MEDS ORDERED: HYDROcodone-ACET 10/325MG TAB PO PRN (23:15)
[2020-04-24] MEDS: POTASSIUM CHL 20MEQ/100ML 100 ML IV ONE ×2 (23:15→23:48)
[2020-04-25] MEDS ORDERED: HYDROcodone-ACET 10/325MG TAB PO PRN (05:30)
[2020-04-25] MEDS: ACCU-CHEK COMFORT CURVE STRIP VI SCH ×2 (06:19→11:54)
[2020-04-25] MEDS: InsuLIN REG 1unit/0.01ml Soln (100units/ml) SC SCH ×2 (06:20→11:54)
[2020-04-25 06:26] LABS: Basophils # (auto) 0.1 10 ^3/uL (0-0.2); Basophils % (auto) 0.6 % (0.0-2.0); Eosinophils # (auto) 0.2 10 ^3/uL (0-0.8); Eosinophils % (auto) 0.9 % (0.0-7.0); Hematocrit 47.2 % (36.0-46.0); Hemoglobin 15.5 g/dL (12.2-16.2); Lymphocytes # (auto) 6.3 10 ^3/uL (0.4-5.4); Lymphocytes % (auto) 28.2 % (10.0-50.0); Mean Corpuscular Hemoglobin 28.7 pg (28.0-32.0); Mean Corpuscular Hgb Conc. 32.8 g/dL (32.0-36.0); Mean Corpuscular Volume 87.3 fL (80.0-100.0); Monocytes # (auto) 1.7 10 ^3/uL (0-1.3); Monocytes % (auto) 7.6 % (0.0-12.0); Neutrophils # (auto) 13.9 10 ^3/uL (1.6-8.6); Neutrophils % (auto) 62.7 % (37.0-80.0); Nucleated Red Blood Cells % 0.1 %; Platelet Count (auto) 370 10^3/uL (140-450); Red Cell Distribution Width 14.8 % (11.8-14.3); White Blood Cell 22.2 10^3/uL (4.4-10.8)
[2020-04-25 06:37] LABS: Calcium 8.4 mg/dL (8.5-10.1)
[2020-04-25 06:39] LABS: BUN/Creatinine Ratio 27.8
[2020-04-25 06:47] LABS: Cholesterol 157 mg/dL (< 200); Triglycerides 134 mg/dL (< 150)
[2020-04-25 06:49] LABS: HDL Cholesterol 47 mg/dL (40-59); LDL Cholesterol 101 mg/dL (< 100)
[2020-04-25] MEDS ORDERED: METOPROLOL SUCCINATE XL 50 MG TAB PO SCH (10:00)
[2020-04-25] MEDS ORDERED: ASPirin 81 mg TAB PO SCH (10:00)
[2020-04-25] MEDS ORDERED: LISINOPRIL 20 MG TAB PO SCH (10:00)
[2020-04-25] MEDS ORDERED: ENOXAPARIN SOD 40 MG/0.4 ML SYRINGE SC SCH (10:00)
[2020-04-25] MEDS ORDERED: FUROSEMIDE 20 MG/2 ML VIAL IV SCH (10:00)
[2020-04-25] MEDS ORDERED: oxyCODONE HCL 5MG TAB PO PRN (12:00)
[2020-04-25] MEDS ORDERED: ALPR1TAB7 PO (12:08)
[2020-04-25] MEDS ORDERED: METF-370 PO (12:08)
[2020-04-25] MEDS ORDERED: NIFE1TAB31 PO (12:08)
[2020-04-25] MEDS ORDERED: METO25TA5 PO (12:12)
[2020-04-25] MEDS ORDERED: BUDE1POW9 INH (12:12)
[2020-04-25] MEDS ORDERED: PRED20TA2 PO (12:12)
[2020-04-25] MEDS ORDERED: HYDROmorphone HCL 2 MG/ML VL IV PRN (12:30)
[2020-04-25] MEDS ORDERED: levoFLOXacin 500MG 100 ML IV ONE (13:45)
[2020-04-25] MEDS ORDERED: HYDROmorphone HCL 2 MG/ML VL IV ONE (14:00)
[2020-04-25] MEDS ORDERED: LEVO500T31 PO (14:04)
[2020-04-25 16:00] VITALS: BP 117/69
[2020-04-25] MEDS ORDERED: InsuLIN REG 1unit/0.01ml Soln (100units/ml) SC SCH (22:00)
== END 2020-04-25 16:00 | disposition home health service (06) | DRG 140 ==
LOC: ER 17:55 → TELE 17:56 → TELE-EAST 04-25 09:14
PROVIDERS: ADMIT Hospitalist; ATTEND Hospitalist
DX: J44.0 Chronic obstructive pulmonary disease with (acute) lower respiratory infection (principal); J18.9 Pneumonia, unspecified organism; I50.33 Acute on chronic diastolic (congestive) heart failure; E11.65 Type 2 diabetes mellitus with hyperglycemia; E66.01 Morbid (severe) obesity due to excess calories; F17.210 Nicotine dependence, cigarettes, uncomplicated; I11.0 Hypertensive heart disease with heart failure; J44.1 Chronic obstructive pulmonary disease with (acute) exacerbation; G47.33 Obstructive sleep apnea (adult) (pediatric); T38.0X5A Adverse effect of glucocorticoids and synthetic analogues, initial encounter; Z20.822 Contact with and (suspected) exposure to COVID-19; F32.9 Major depressive disorder, single episode, unspecified; F41.9 Anxiety disorder, unspecified; Y92.89 Other specified places as the place of occurrence of the external cause; Z88.5 Allergy status to narcotic agent; Z82.49 Family history of ischemic heart disease and other diseases of the circulatory system; Z83.3 Family history of diabetes mellitus; Z87.11 Personal history of peptic ulcer disease; Z88.8 Allergy status to other drugs, medicaments and biological substances; Z88.2 Allergy status to sulfonamides; Z90.49 Acquired absence of other specified parts of digestive tract; Z68.43 Body mass index [BMI] 50.0-59.9, adult; J96.01 Acute respiratory failure with hypoxia
CPT/HCPCS: 36415; 71045; 80048; 80053; 80061; 82962; 83036; 83880; 84484; 85025; 85379; 87081; 87426; 93005; 96374; 96375; G0378; J1815; J1956; J2405; J3480

== ENCOUNTER 2020-06-07 12:14 | Emergency (ER) | payer MEDICAID ==
[~2020-06-07] VITALS: Ht 167.6 cm; Wt 140.6 kg
[~2020-06-07 12:14] MED LIST changes: +ALPR1TAB7 PO; +BUDE1POW9 INH; -LEVO250T69 PO; +LEVO500T31 PO; +METF-370 PO; -METO-6 PO; +METO25TA5 PO; +NIFE1TAB31 PO; -NYS15PW TOP
[2020-06-07 12:48] LABS: Urine Bacteria FEW /hpf (None Seen); Urine Blood Negative /uL (Negative); Urine Specific Gravity 1.002 (1.001-1.035); Urine WBC <1 /hpf (0 - 5)
[2020-06-07] MEDS ORDERED: ONDANSETRON HCL 4 MG/2 ML VIAL IV ONE ×3 (13:15→17:30)
[2020-06-07] MEDS ORDERED: HYDROmorphone HCL 2 MG/ML VL IV ONE ×2 (13:15→17:30)
[2020-06-07] MEDS ORDERED: SODIUM CHLORIDE 0.9% 1,000 ML IV ONE (13:15)
[2020-06-07 13:26] LABS: Basophils # (auto) 0.1 10 ^3/uL (0-0.2); Basophils % (auto) 0.9 % (0.0-2.0); Eosinophils # (auto) 0.1 10 ^3/uL (0-0.8); Eosinophils % (auto) 1.1 % (0.0-7.0); Hematocrit 43.1 % (36.0-46.0); Hemoglobin 14.3 g/dL (12.2-16.2); Lymphocytes # (auto) 2.1 10 ^3/uL (0.4-5.4); Lymphocytes % (auto) 18.4 % (10.0-50.0); Mean Corpuscular Hemoglobin 28.5 pg (28.0-32.0); Mean Corpuscular Hgb Conc. 33.2 g/dL (32.0-36.0); Mean Corpuscular Volume 85.9 fL (80.0-100.0); Monocytes # (auto) 0.8 10 ^3/uL (0-1.3); Monocytes % (auto) 7.2 % (0.0-12.0); Neutrophils # (auto) 8.3 10 ^3/uL (1.6-8.6); Neutrophils % (auto) 72.4 % (37.0-80.0); Nucleated Red Blood Cells % 0.3 %; Platelet Count (auto) 287 10^3/uL (140-450); Red Blood Cells 5.02 10^6/uL (4.0-5.20); Red Cell Distribution Width 14.3 % (11.8-14.3); White Blood Cell 11.4 10^3/uL (4.4-10.8)
[2020-06-07 13:39] LABS: Albumin 3.5 g/dL (3.4-5.0); Anion Gap 6 (5-15); Blood Urea Nitrogen 8 mg/dL (7-18); Calcium 9.4 mg/dL (8.5-10.1); Carbon Dioxide 27 mmol/L (21-32); Chloride 108 mmol/L (98-107); Glucose 138 mg/dL (74-106); Magnesium 2.4 mg/dL (1.6-2.6); Potassium 4.1 mmol/L (3.5-5.1); Sodium 141 mmol/L (136-145)
[2020-06-07 13:44] LABS: Alanine Aminotransferase 25 U/L (13-56); Alkaline Phosphatase 77 U/L (45-117); Aspartate Aminotransferase 12 U/L (15-37); BUN/Creatinine Ratio 10.8; Bilirubin, Total 0.3 mg/dL (0.2-1.0); GFR African American 106 mL/min; GFR Non-African American 88 mL/min; Total Protein 7.6 g/dL (6.4-8.2)
[2020-06-07] MEDS ORDERED: FUROSEMIDE 20 MG TAB PO ONE (17:30)
[2020-06-07 18:28] VITALS: BP 127/70
== END 2020-06-07 18:26 | disposition home or self-care (01) ==
LOC: ER 12:14
DX: K29.00 Acute gastritis without bleeding (principal); R09.89 Other specified symptoms and signs involving the circulatory and respiratory systems; G93.3 Postviral and related fatigue syndromes; G89.29 Other chronic pain; M54.5 Low back pain; E11.9 Type 2 diabetes mellitus without complications; E66.9 Obesity, unspecified; F17.210 Nicotine dependence, cigarettes, uncomplicated; F41.9 Anxiety disorder, unspecified; I11.0 Hypertensive heart disease with heart failure; I50.9 Heart failure, unspecified; F32.9 Major depressive disorder, single episode, unspecified; E78.5 Hyperlipidemia, unspecified; Z20.822 Contact with and (suspected) exposure to COVID-19; Z68.43 Body mass index [BMI] 50.0-59.9, adult; Z87.11 Personal history of peptic ulcer disease; Z90.49 Acquired absence of other specified parts of digestive tract; Z98.890 Other specified postprocedural states
CPT/HCPCS: 36415; 71045; 80053; 81001; 83735; 83880; 84443; 84484; 85025; 85379; 87040; 87426; 93005; 96361; 96374; 96375; 96376; 99285; J1170; J2405

== ENCOUNTER 2020-07-10 12:59 | Inpatient (IN) | payer MEDICAID ==
[~2020-07-10] VITALS: Ht 167.6 cm; Wt 135.7 kg
[~2020-07-10 12:59] MED LIST changes: -BUDE1POW9 INH; +BUDEPOW INH; -LISI-646 PO; +LISI20TA28 PO
[2020-07-10] MEDS ORDERED: PROCHLORPERAZINE EDISYLATE 5 MG/ML 2ML VIAL IV ONE (13:15)
[2020-07-10] MEDS ORDERED: HYDROmorphone HCL 2 MG/ML VL IV ONE ×2 (13:15→17:15)
[2020-07-10] MEDS ORDERED: methylPREDNISolone SOD SUCC 125 MG/2 ML VL IV ONE (13:15)
[2020-07-10 13:39] LABS: Basophils # (auto) 0.2 10 ^3/uL (0-0.2); Basophils % (auto) 1.1 % (0.0-2.0); Eosinophils # (auto) 0.1 10 ^3/uL (0-0.8); Eosinophils % (auto) 0.6 % (0.0-7.0); Hematocrit 42.2 % (36.0-46.0); Hemoglobin 14.3 g/dL (12.2-16.2); Lymphocytes # (auto) 3.1 10 ^3/uL (0.4-5.4); Mean Corpuscular Hgb Conc. 33.9 g/dL (32.0-36.0); Mean Corpuscular Volume 85.6 fL (80.0-100.0); Monocytes % (auto) 6.5 % (0.0-12.0); Neutrophils # (auto) 10.5 10 ^3/uL (1.6-8.6); Neutrophils % (auto) 70.8 % (37.0-80.0); Platelet Count (auto) 413 10^3/uL (140-450); Red Blood Cells 4.93 10^6/uL (4.0-5.20); Red Cell Distribution Width 14.2 % (11.8-14.3); White Blood Cell 14.8 10^3/uL (4.4-10.8)
[2020-07-10 13:59] LABS: Albumin 3.5 g/dL (3.4-5.0); Anion Gap 13 (5-15); Blood Urea Nitrogen 11 mg/dL (7-18); Calcium 8.7 mg/dL (8.5-10.1); Carbon Dioxide 18 mmol/L (21-32); Chloride 108 mmol/L (98-107); Glucose 241 mg/dL (74-106); Potassium 3.8 mmol/L (3.5-5.1); Sodium 139 mmol/L (136-145)
[2020-07-10 14:05] LABS: Alanine Aminotransferase 24 U/L (13-56); Alkaline Phosphatase 102 U/L (45-117); Aspartate Aminotransferase 13 U/L (15-37); BUN/Creatinine Ratio 11.7; Bilirubin, Total 0.3 mg/dL (0.2-1.0); GFR African American 80 mL/min; GFR Non-African American 66 mL/min; Total Protein 7.5 g/dL (6.4-8.2)
[2020-07-10 14:35] LABS: Lactic Acid w/Reflex 4.3 mmol/L (0.4-2.0)
[2020-07-10] MEDS ORDERED: NITROGLYCERIN 0.4 MG SL TAB SL PRN (18:30)
[2020-07-10] MEDS ORDERED: DEXTROSE (50%) 50ML SYRG IV PRN (18:45)
[2020-07-10] MEDS ORDERED: SODIUM CHLORIDE 0.9% 1,000 ML IV ONE ×2 (18:45)
[2020-07-10] MEDS ORDERED: AZITHROMYCIN 500MG/ 250ML 250 ML IV ONE (18:45)
[2020-07-10] MEDS ORDERED: ALPRAZolam 0.5 MG TAB PO PRN (19:00)
[2020-07-10] MEDS ORDERED: cloNIDine HCL 0.1 MG TAB PO ONE (20:00)
[2020-07-10 21:04] VITALS: BP 148/84
[2020-07-10 21:20] VITALS: BP 148/84
[2020-07-10] MEDS: HYDROmorphone HCL 2 MG/ML VL IV PRN (21:45)
[2020-07-10] MEDS: BUDESONIDE PO SCH (22:00)
[2020-07-10] MEDS: InsuLIN REG 1unit/0.01ml Soln (100units/ml) SC SCH (22:07)
[2020-07-10] MEDS: ACCU-CHEK COMFORT CURVE STRIP VI SCH (22:07)
[2020-07-11] VITALS (7 sets, daily range): BP systolic 143–157; BP diastolic 84–108
[2020-07-11] MEDS: levoFLOXacin 500MG 100 ML IV SCH ×2 (00:03→09:45)
[2020-07-11] MEDS: ACETAMINOPHEN 325 MG TAB PO PRN ×2 (00:04→05:07)
[2020-07-11] MEDS ORDERED: OXYC325T14 PO (00:36)
[2020-07-11] MEDS ORDERED: SUCR1TAB22 PO (00:36)
[2020-07-11] MEDS ORDERED: PNEUMOCOCCAL VACC POLYS 25 MCG/0.5 ML VIAL IM ONE (01:15)
[2020-07-11] MEDS ORDERED: INFLUENZA QUAD 2020-2021 0.5 ML SYRG IM ONE (01:15)
[2020-07-11] MEDS: HYDROmorphone HCL 2 MG/ML VL IV PRN ×4 (03:40→20:45)
[2020-07-11] MEDS: ACCU-CHEK COMFORT CURVE STRIP VI SCH ×4 (05:19→23:01)
[2020-07-11] MEDS: InsuLIN REG 1unit/0.01ml Soln (100units/ml) SC SCH ×4 (05:20→22:00)
[2020-07-11 06:14] LABS: Basophils # (auto) 0 10 ^3/uL (0-0.2); Basophils % (auto) 0.1 % (0.0-2.0); Eosinophils # (auto) 0.1 10 ^3/uL (0-0.8); Eosinophils % (auto) 0.6 % (0.0-7.0); Hematocrit 43.7 % (36.0-46.0); Hemoglobin 13.8 g/dL (12.2-16.2); Lymphocytes # (auto) 3.7 10 ^3/uL (0.4-5.4); Lymphocytes % (auto) 17.2 % (10.0-50.0); Mean Corpuscular Hemoglobin 28.6 pg (28.0-32.0); Mean Corpuscular Hgb Conc. 31.7 g/dL (32.0-36.0); Mean Corpuscular Volume 90.2 fL (80.0-100.0); Monocytes # (auto) 1.5 10 ^3/uL (0-1.3); Neutrophils % (auto) 75.1 % (37.0-80.0); Nucleated Red Blood Cells % 0.3 %; Platelet Count (auto) 402 10^3/uL (140-450); Red Blood Cells 4.84 10^6/uL (4.0-5.20); Red Cell Distribution Width 14.3 % (11.8-14.3); White Blood Cell 21.4 10^3/uL (4.4-10.8)
[2020-07-11 06:24] LABS: Lactic Acid w/Reflex 2.2 mmol/L (0.4-2.0)
[2020-07-11 06:32] LABS: Potassium 4.3 mmol/L (3.5-5.1)
[2020-07-11 06:45] LABS: BUN/Creatinine Ratio 19.4; Calcium 8.5 mg/dL (8.5-10.1)
[2020-07-11 06:46] LABS: Urine Bacteria FEW /hpf (None Seen); Urine Blood Negative /uL (Negative); Urine Mucus FEW (None Seen); Urine Specific Gravity 1.024 (1.001-1.035); Urine WBC 3 /hpf (0 - 5)
[2020-07-11] MEDS: IPRATROPIUM BROM 0.5 MG/2.5ML INH SOL NEB SCH ×3 (07:01→19:19)
[2020-07-11] MEDS: ALBUTEROL SULF 2.5 MG/0.5ML(0.5%) NEB SOLN NEB SCH ×3 (07:01→19:19)
[2020-07-11] MEDS ORDERED: SODIUM CHLORIDE 0.9% 1,000 ML IV ONE (09:30)
[2020-07-11] MEDS: METOPROLOL TARTRATE 25 MG TAB PO SCH (09:46)
[2020-07-11] MEDS: NIFEdipine ER 30 MG TAB PO SCH (09:46)
[2020-07-11] MEDS: LISINOPRIL 20 MG TAB PO SCH (09:47)
[2020-07-11] MEDS: BUDESONIDE PO SCH (09:49)
[2020-07-11 12:46] LABS: Lactic Acid w/Reflex 2.2 mmol/L (0.4-2.0)
[2020-07-11] MEDS ORDERED: LEVO500T31 PO (18:06)
[2020-07-11] MEDS ORDERED: DEXT1SYP9 PO (18:06)
[2020-07-11] MEDS ORDERED: IPRIH IN (18:06)
[2020-07-11] MEDS ORDERED: ALBUAER3 IN (18:06)
[2020-07-12] MEDS: HYDROmorphone HCL 2 MG/ML VL IV PRN ×2 (02:27→08:18)
[2020-07-12 05:00] VITALS: BP 149/100
[2020-07-12] MEDS: InsuLIN REG 1unit/0.01ml Soln (100units/ml) SC SCH ×2 (05:55→11:45)
[2020-07-12] MEDS: ACCU-CHEK COMFORT CURVE STRIP VI SCH ×2 (05:55→11:45)
[2020-07-12] MEDS: ALBUTEROL SULF 2.5 MG/0.5ML(0.5%) NEB SOLN NEB SCH ×2 (06:00→12:02)
[2020-07-12] MEDS: IPRATROPIUM BROM 0.5 MG/2.5ML INH SOL NEB SCH ×2 (06:00→12:02)
[2020-07-12 06:19] VITALS: BP 145/90
[2020-07-12 07:45] VITALS: BP 160/99
[2020-07-12 08:36] VITALS: BP 137/90
[2020-07-12 08:58] VITALS: BP 160/99
[2020-07-12] MEDS: levoFLOXacin 500MG 100 ML IV SCH (09:30)
[2020-07-12] MEDS: NIFEdipine ER 30 MG TAB PO SCH (09:31)
[2020-07-12] MEDS: LISINOPRIL 20 MG TAB PO SCH (09:31)
[2020-07-12] MEDS: METOPROLOL TARTRATE 25 MG TAB PO SCH (09:31)
[2020-07-12] MEDS: BUDESONIDE PO SCH (09:32)
== END 2020-07-12 11:55 | disposition home health service (06) | DRG 139 ==
LOC: ER 12:59 → EDBD 12:59 → TELE 18:29 → TELE-EAST 21:04
PROVIDERS: ADMIT Internal Medicine; ATTEND Internal Medicine
DX: J18.9 Pneumonia, unspecified organism (principal); J96.01 Acute respiratory failure with hypoxia; E66.01 Morbid (severe) obesity due to excess calories; E87.2 Acidosis; D72.829 Elevated white blood cell count, unspecified; E11.9 Type 2 diabetes mellitus without complications; M94.0 Chondrocostal junction syndrome [Tietze]; E78.5 Hyperlipidemia, unspecified; Z20.822 Contact with and (suspected) exposure to COVID-19; F32.9 Major depressive disorder, single episode, unspecified; I11.0 Hypertensive heart disease with heart failure; I50.32 Chronic diastolic (congestive) heart failure; F41.9 Anxiety disorder, unspecified; Z68.42 Body mass index [BMI] 45.0-49.9, adult; Z11.52 Encounter for screening for COVID-19; Z88.5 Allergy status to narcotic agent; Z88.0 Allergy status to penicillin; Z88.2 Allergy status to sulfonamides; Z88.8 Allergy status to other drugs, medicaments and biological substances; Z82.49 Family history of ischemic heart disease and other diseases of the circulatory system; Z83.3 Family history of diabetes mellitus; Z87.01 Personal history of pneumonia (recurrent); Z87.11 Personal history of peptic ulcer disease; Z87.891 Personal history of nicotine dependence; Z90.49 Acquired absence of other specified parts of digestive tract
CPT/HCPCS: 36415; 71045; 80048; 80053; 81001; 82962; 83605; 83880; 84484; 85025; 85379; 87040; 87426; 93005; 93306; 94640; 96374; 96375; 96376; G0378; J1815; J1956

== ENCOUNTER 2020-07-26 13:04 | Inpatient (IN) | payer MEDICAID ==
[~2020-07-26] VITALS: Ht 167.6 cm; Wt 137.7 kg
[~2020-07-26 13:04] MED LIST changes: -BUDEPOW INH; +DEXT1SYP9 PO; +IPRIH IN; +OXYC325T14 PO; -PRED20TA2 PO; +SUCR1TAB22 PO
[2020-07-26 14:38] LABS: Basophils # (auto) 0.1 10 ^3/uL (0-0.2); Basophils % (auto) 0.7 % (0.0-2.0); Eosinophils # (auto) 0.1 10 ^3/uL (0-0.8); Eosinophils % (auto) 0.9 % (0.0-7.0); Hematocrit 43.8 % (36.0-46.0); Hemoglobin 14.3 g/dL (12.2-16.2); Lymphocytes # (auto) 2.9 10 ^3/uL (0.4-5.4); Lymphocytes % (auto) 22.1 % (10.0-50.0); Mean Corpuscular Hemoglobin 28.3 pg (28.0-32.0); Mean Corpuscular Hgb Conc. 32.6 g/dL (32.0-36.0); Mean Corpuscular Volume 86.8 fL (80.0-100.0); Monocytes % (auto) 7.3 % (0.0-12.0); Neutrophils # (auto) 9.2 10 ^3/uL (1.6-8.6); Nucleated Red Blood Cells % 0.1 %; Platelet Count (auto) 333 10^3/uL (140-450); Red Blood Cells 5.05 10^6/uL (4.0-5.20); Red Cell Distribution Width 15.1 % (11.8-14.3); White Blood Cell 13.3 10^3/uL (4.4-10.8)
[2020-07-26 14:53] LABS: Calcium 9.5 mg/dL (8.5-10.1); Chloride 108 mmol/L (98-107); Potassium 4.3 mmol/L (3.5-5.1); Sodium 139 mmol/L (136-145)
[2020-07-26] MEDS: ASPirin-EC 81 mg tab PO ONE ×2 (14:58→14:59)
[2020-07-26 15:03] LABS: Alanine Aminotransferase 24 U/L (13-56); Albumin 3.4 g/dL (3.4-5.0); Alkaline Phosphatase 85 U/L (45-117); Anion Gap 9 (5-15); Aspartate Aminotransferase 13 U/L (15-37); BUN/Creatinine Ratio 18.3; Bilirubin, Total 0.2 mg/dL (0.2-1.0); Blood Urea Nitrogen 15 mg/dL (7-18); Carbon Dioxide 22 mmol/L (21-32); GFR African American 94 mL/min; GFR Non-African American 78 mL/min; Glucose 197 mg/dL (74-106); Total Protein 7.3 g/dL (6.4-8.2)
[2020-07-26] MEDS ORDERED: ONDANSETRON HCL 4 MG/2 ML VIAL IM ONE (17:00)
[2020-07-26] MEDS ORDERED: HYDROmorphone HCL 2 MG/ML VL IV ONE (17:00)
[2020-07-26 17:17] LABS: INR 0.9 (0.9-1.15); Partial Thromboplastin Time 21.9 sec (23.0-31.2)
[2020-07-26] MEDS ORDERED: HYDROcodone-ACET 10/325MG TAB PO PRN (21:00)
[2020-07-26] MEDS ORDERED: guaiFENesin-DM 100/10mg/5ml SYR PO PRN (21:00)
[2020-07-26] MEDS ORDERED: DEXTROSE (50%) 50ML SYRG IV PRN (21:00)
[2020-07-26] MEDS ORDERED: MORPHINE SULF INJ 2 MG/ML SYRINGE 1ML IV PRN ×2 (21:00→22:30)
[2020-07-26] MEDS ORDERED: ALBUTEROL SULF HFA 90MCG INH 200DOSE IN PRN ×2 (21:00→22:30)
[2020-07-26] MEDS ORDERED: IPRATROPIUM BROMIDE HFA AER IN PRN ×2 (21:00→22:30)
[2020-07-26] MEDS ORDERED: ACETAMINOPHEN 325 MG TAB PO PRN ×2 (21:00→22:00)
[2020-07-26 22:03] LABS: Basophils # (auto) 0 10 ^3/uL (0-0.2); Basophils % (auto) 0.2 % (0.0-2.0); Eosinophils # (auto) 0.2 10 ^3/uL (0-0.8); Eosinophils % (auto) 1.2 % (0.0-7.0); Hemoglobin 13.8 g/dL (12.2-16.2); Lymphocytes # (auto) 3.9 10 ^3/uL (0.4-5.4); Lymphocytes % (auto) 28.7 % (10.0-50.0); Mean Corpuscular Hemoglobin 28.9 pg (28.0-32.0); Mean Corpuscular Hgb Conc. 32.9 g/dL (32.0-36.0); Mean Corpuscular Volume 87.8 fL (80.0-100.0); Monocytes # (auto) 0.9 10 ^3/uL (0-1.3); Monocytes % (auto) 6.8 % (0.0-12.0); Neutrophils # (auto) 8.6 10 ^3/uL (1.6-8.6); Neutrophils % (auto) 63.1 % (37.0-80.0); Nucleated Red Blood Cells % 0.2 %; Platelet Count (auto) 283 10^3/uL (140-450); Red Blood Cells 4.78 10^6/uL (4.0-5.20); White Blood Cell 13.7 10^3/uL (4.4-10.8)
[2020-07-26 22:29] LABS: Potassium 4.2 mmol/L (3.5-5.1)
[2020-07-26 22:33] LABS: BUN/Creatinine Ratio 19.8; Magnesium 2.4 mg/dL (1.6-2.6)
[2020-07-26] MEDS: ATORVASTATIN 20 MG TAB PO SCH (22:53)
[2020-07-26] MEDS: SUCRALFATE 1 GM TAB PO SCH (22:53)
[2020-07-26] MEDS: InsuLIN REG 1unit/0.01ml Soln (100units/ml) SC SCH (22:59)
[2020-07-26] MEDS: ACCU-CHEK COMFORT CURVE STRIP VI SCH (23:03)
[2020-07-26 23:22] LABS: Urine Amorphous Crystal MOD /hpf (None Seen); Urine Bacteria MOD /hpf (None Seen); Urine Blood Negative /uL (Negative); Urine Specific Gravity 1.023 (1.001-1.035); Urine WBC 5 /hpf (0 - 5)
[2020-07-27] MEDS ORDERED: PNEUMOCOCCAL VACC POLYS 25 MCG/0.5 ML VIAL IM ONE ×2 (00:15→05:45)
[2020-07-27] MEDS: oxyCODONE HCL 5MG TAB PO PRN ×5 (00:59→21:30)
[2020-07-27 01:01] VITALS: BP 129/72
[2020-07-27] MEDS: ONDANSETRON HCL 4 MG/2 ML VIAL IV PRN ×3 (01:06→11:14)
[2020-07-27 04:46] VITALS: BP 138/101
[2020-07-27] MEDS: SUCRALFATE 1 GM TAB PO SCH ×4 (05:07→21:29)
[2020-07-27] MEDS: ALBUTEROL SULF 2.5 MG/0.5ML(0.5%) NEB SOLN NEB PRN ×2 (05:54→23:41)
[2020-07-27] MEDS: InsuLIN REG 1unit/0.01ml Soln (100units/ml) SC SCH ×4 (06:20→21:51)
[2020-07-27] MEDS: ACCU-CHEK COMFORT CURVE STRIP VI SCH ×4 (06:20→21:51)
[2020-07-27 09:00] VITALS: BP 132/102
[2020-07-27] MEDS: ASPirin 81 mg TAB PO SCH (09:38)
[2020-07-27] MEDS: METOPROLOL TARTRATE 50 MG TAB PO SCH (09:38)
[2020-07-27] MEDS: NIFEdipine ER 30 MG TAB PO SCH (09:39)
[2020-07-27] MEDS: PANTOPRAZOLE 40 MG TAB PO SCH (09:39)
[2020-07-27] MEDS: ENOXAPARIN SOD 40 MG/0.4 ML SYRINGE SC SCH (09:40)
[2020-07-27] MEDS: LISINOPRIL 20 MG TAB PO SCH (09:40)
[2020-07-27 13:00] VITALS: BP 125/73
[2020-07-27 17:03] VITALS: BP 111/68
[2020-07-27] MEDS: ATORVASTATIN 20 MG TAB PO SCH (21:30)
[2020-07-27 22:00] VITALS: BP 103/62
[2020-07-28] MEDS: ONDANSETRON HCL 4 MG/2 ML VIAL IV PRN ×3 (04:43→18:30)
[2020-07-28] MEDS: oxyCODONE HCL 5MG TAB PO PRN ×4 (04:43→17:46)
[2020-07-28 05:00] VITALS: BP 123/74
[2020-07-28] MEDS: InsuLIN REG 1unit/0.01ml Soln (100units/ml) SC SCH ×3 (06:43→16:30)
[2020-07-28] MEDS: ACCU-CHEK COMFORT CURVE STRIP VI SCH ×3 (06:45→16:31)
[2020-07-28] MEDS: SUCRALFATE 1 GM TAB PO SCH ×3 (06:48→18:28)
[2020-07-28 09:00] VITALS: BP 116/64
[2020-07-28] MEDS: ASPirin 81 mg TAB PO SCH (09:27)
[2020-07-28] MEDS: PANTOPRAZOLE 40 MG TAB PO SCH (09:27)
[2020-07-28] MEDS: ENOXAPARIN SOD 40 MG/0.4 ML SYRINGE SC SCH (09:28)
[2020-07-28] MEDS: METOPROLOL TARTRATE 50 MG TAB PO SCH (09:30)
[2020-07-28] MEDS: LISINOPRIL 20 MG TAB PO SCH (09:30)
[2020-07-28] MEDS: NIFEdipine ER 30 MG TAB PO SCH (09:30)
[2020-07-28] MEDS: ALBUTEROL SULF 2.5 MG/0.5ML(0.5%) NEB SOLN NEB PRN (11:09)
[2020-07-28 13:00] VITALS: BP 127/68
[2020-07-28 17:00] VITALS: BP 142/83
[2020-07-28] MEDS ORDERED: DOXY-338 PO (17:07)
[2020-07-28] MEDS ORDERED: DOXYCYCLINE 100 MG TAB/CAP PO ONE (17:15)
[2020-07-28 18:06] VITALS: BP 111/68
[2020-07-28] MEDS ORDERED: DOXYCYCLINE 100 MG TAB/CAP PO SCH (22:00)
== END 2020-07-28 19:00 | disposition home or self-care (01) | DRG 140 ==
LOC: ER 13:04 → TELE 20:59 → TELE-EAST 23:10
PROVIDERS: ADMIT Internal Medicine; ATTEND Internal Medicine
DX: J44.0 Chronic obstructive pulmonary disease with (acute) lower respiratory infection (principal); J18.9 Pneumonia, unspecified organism; J96.11 Chronic respiratory failure with hypoxia; I11.0 Hypertensive heart disease with heart failure; I50.9 Heart failure, unspecified; E66.01 Morbid (severe) obesity due to excess calories; R07.89 Other chest pain; I25.10 Atherosclerotic heart disease of native coronary artery without angina pectoris; K52.9 Noninfective gastroenteritis and colitis, unspecified; E11.9 Type 2 diabetes mellitus without complications; F41.9 Anxiety disorder, unspecified; G47.33 Obstructive sleep apnea (adult) (pediatric); F32.9 Major depressive disorder, single episode, unspecified; Z20.822 Contact with and (suspected) exposure to COVID-19; Z82.49 Family history of ischemic heart disease and other diseases of the circulatory system; Z83.3 Family history of diabetes mellitus; Z87.11 Personal history of peptic ulcer disease; Z87.891 Personal history of nicotine dependence; Z88.0 Allergy status to penicillin; Z88.8 Allergy status to other drugs, medicaments and biological substances; Z88.2 Allergy status to sulfonamides; Z88.5 Allergy status to narcotic agent; Z80.8 Family history of malignant neoplasm of other organs or systems; Z28.21 Immunization not carried out because of patient refusal; Z68.42 Body mass index [BMI] 45.0-49.9, adult
CPT/HCPCS: 36415; 71045; 74176; 80048; 80053; 81001; 81025; 82962; 83735; 83880; 84443; 84484; 85025; 85379; 85610; 85730; 87081; 87426; 93005; 94640; 96372; 96374; G0378; J1815; J2405

== ENCOUNTER 2020-08-19 15:26 | Emergency (ER) | payer MEDICAID ==
[~2020-08-19] VITALS: Ht 167.6 cm; Wt 172.4 kg
[~2020-08-19 15:26] MED LIST changes: +DOXY-338 PO; -LEVO500T31 PO
[2020-08-19 16:03] LABS: Basophils # (auto) 0 10 ^3/uL (0-0.2); Basophils % (auto) 0.5 % (0.0-2.0); Eosinophils # (auto) 0.1 10 ^3/uL (0-0.8); Eosinophils % (auto) 1.4 % (0.0-7.0); Hematocrit 39.2 % (36.0-46.0); Hemoglobin 13.2 g/dL (12.2-16.2); Lymphocytes # (auto) 1.7 10 ^3/uL (0.4-5.4); Lymphocytes % (auto) 21.6 % (10.0-50.0); Mean Corpuscular Hemoglobin 29.5 pg (28.0-32.0); Mean Corpuscular Hgb Conc. 33.5 g/dL (32.0-36.0); Mean Corpuscular Volume 87.8 fL (80.0-100.0); Monocytes # (auto) 0.5 10 ^3/uL (0-1.3); Monocytes % (auto) 6.6 % (0.0-12.0); Neutrophils # (auto) 5.6 10 ^3/uL (1.6-8.6); Neutrophils % (auto) 69.9 % (37.0-80.0); Nucleated Red Blood Cells % 0.1 %; Platelet Count (auto) 328 10^3/uL (140-450); Red Blood Cells 4.46 10^6/uL (4.0-5.20); Red Cell Distribution Width 14.4 % (11.8-14.3); White Blood Cell 8.1 10^3/uL (4.4-10.8)
[2020-08-19 16:24] LABS: Albumin 3.2 g/dL (3.4-5.0); Calcium 8.6 mg/dL (8.5-10.1); Potassium 3.9 mmol/L (3.5-5.1)
[2020-08-19 16:27] LABS: BUN/Creatinine Ratio 8.6; Bilirubin, Total 0.3 mg/dL (0.2-1.0); Total Protein 6.9 g/dL (6.4-8.2)
[2020-08-19] MEDS ORDERED: METOCLOPRAMIDE HCL 5MG/ml INJ 2ml VIAL IV ONE (17:30)
[2020-08-19] MEDS ORDERED: SODIUM CHLORIDE 0.9% 1,000 ML IV ONE (17:30)
[2020-08-19] MEDS ORDERED: HYDROmorphone HCL 2 MG/ML VL IV ONE ×2 (17:30→20:45)
[2020-08-19 17:52] LABS: Magnesium 2.3 mg/dL (1.6-2.6)
[2020-08-19 17:59] LABS: Lactic Acid w/Reflex 2.5 mmol/L (0.4-2.0)
[2020-08-19 19:36] LABS: Urine Bacteria NONE SEEN /hpf (None Seen); Urine Blood Negative /uL (Negative); Urine Mucus FEW (None Seen); Urine Specific Gravity 1.022 (1.001-1.035); Urine WBC <1 /hpf (0 - 5)
[2020-08-19] MEDS ORDERED: ONDANSETRON HCL 4 MG/2 ML VIAL IV ONE (20:45)
[2020-08-19] MEDS ORDERED: cefTRIAXone 1GM/50ML D5W 50 ML IV ONE (21:00)
[2020-08-20 01:00] VITALS: BP 122/96
[2020-08-20] MEDS ORDERED: HYDROmorphone HCL 2 MG/ML VL IV ONE (01:00)
== END 2020-08-20 00:46 | disposition home or self-care (01) ==
LOC: ER 15:26
DX: R10.30 Lower abdominal pain, unspecified (principal); R60.1 Generalized edema; E11.65 Type 2 diabetes mellitus with hyperglycemia; E46 Unspecified protein-calorie malnutrition; R11.2 Nausea with vomiting, unspecified; R19.7 Diarrhea, unspecified; R30.0 Dysuria; I11.0 Hypertensive heart disease with heart failure; I50.9 Heart failure, unspecified; J44.9 Chronic obstructive pulmonary disease, unspecified; E78.5 Hyperlipidemia, unspecified; Z68.44 Body mass index [BMI] 60.0-69.9, adult; Z90.49 Acquired absence of other specified parts of digestive tract; Z87.891 Personal history of nicotine dependence; Z79.2 Long term (current) use of antibiotics; Z79.899 Other long term (current) drug therapy; Z88.0 Allergy status to penicillin; Z88.2 Allergy status to sulfonamides; Z88.8 Allergy status to other drugs, medicaments and biological substances
CPT/HCPCS: 36415; 71045; 74176; 80053; 81001; 82150; 83605; 83690; 83735; 85025; 87040; 93005; 96361; 96365; 96375; 96376; 99285; J0696; J1170; J2405; J2765; J7030

== ENCOUNTER 2020-08-21 09:27 | Emergency (ER) | payer MEDICAID ==
[~2020-08-21] VITALS: Ht 167.6 cm; Wt 131.5 kg
[2020-08-21] MEDS ORDERED: SODIUM CHLORIDE 0.9% 1,000 ML IV ONE ×2 (10:00)
[2020-08-21 10:30] LABS: Basophils # (auto) 0.1 10 ^3/uL (0-0.2); Basophils % (auto) 1.2 % (0.0-2.0); Eosinophils # (auto) 0.1 10 ^3/uL (0-0.8); Eosinophils % (auto) 1.4 % (0.0-7.0); Hematocrit 39.7 % (36.0-46.0); Hemoglobin 13.5 g/dL (12.2-16.2); Lymphocytes # (auto) 2.2 10 ^3/uL (0.4-5.4); Lymphocytes % (auto) 20.8 % (10.0-50.0); Mean Corpuscular Hemoglobin 29.6 pg (28.0-32.0); Mean Corpuscular Volume 86.9 fL (80.0-100.0); Monocytes # (auto) 0.6 10 ^3/uL (0-1.3); Monocytes % (auto) 5.8 % (0.0-12.0); Neutrophils # (auto) 7.4 10 ^3/uL (1.6-8.6); Neutrophils % (auto) 70.8 % (37.0-80.0); Nucleated Red Blood Cells % 0.1 %; Red Blood Cells 4.57 10^6/uL (4.0-5.20); Red Cell Distribution Width 14.8 % (11.8-14.3); White Blood Cell 10.4 10^3/uL (4.4-10.8)
[2020-08-21] MEDS ORDERED: ONDANSETRON HCL 4 MG/2 ML VIAL IV ONE (10:30)
[2020-08-21 10:47] LABS: Albumin 3.4 g/dL (3.4-5.0); Calcium 9.1 mg/dL (8.5-10.1); Potassium 4.1 mmol/L (3.5-5.1)
[2020-08-21 10:51] LABS: BUN/Creatinine Ratio 11.7; Bilirubin, Total 0.2 mg/dL (0.2-1.0); Total Protein 7.1 g/dL (6.4-8.2)
[2020-08-21 11:00] LABS: Urine WBC None Seen /hpf (0 - 5)
[2020-08-21 11:04] LABS: Urine Bacteria NONE SEEN /hpf (None Seen); Urine Blood Negative /uL (Negative); Urine Specific Gravity 1.006 (1.001-1.035)
[2020-08-21 11:15] VITALS: BP 164/102
[2020-08-21] MEDS ORDERED: HYDROcodone-ACET 10/325MG TAB PO ONE (12:15)
== END 2020-08-21 13:10 | disposition home or self-care (01) ==
LOC: ER 09:27
DX: M48.061 Spinal stenosis, lumbar region without neurogenic claudication (principal); E11.65 Type 2 diabetes mellitus with hyperglycemia; I11.0 Hypertensive heart disease with heart failure; I50.9 Heart failure, unspecified; J44.9 Chronic obstructive pulmonary disease, unspecified; Z90.49 Acquired absence of other specified parts of digestive tract; Z87.891 Personal history of nicotine dependence; Z88.0 Allergy status to penicillin; Z88.1 Allergy status to other antibiotic agents; Z88.5 Allergy status to narcotic agent; Z88.8 Allergy status to other drugs, medicaments and biological substances; Z88.2 Allergy status to sulfonamides; Z79.899 Other long term (current) drug therapy
CPT/HCPCS: 36415; 72131; 74176; 80053; 81001; 82010; 83036; 85025; 96361; 96374; 99285; J2405; J7030

== ENCOUNTER 2020-10-11 17:55 | Inpatient (IN) | payer MEDICAID ==
[~2020-10-11] VITALS: Ht 167.6 cm; Wt 147.3 kg
[2020-10-11 19:21] LABS: Basophils # (auto) 0.1 10 ^3/uL (0-0.2); Basophils % (auto) 0.8 % (0.0-2.0); Eosinophils # (auto) 0.1 10 ^3/uL (0-0.8); Eosinophils % (auto) 0.8 % (0.0-7.0); Hematocrit 37.3 % (36.0-46.0); Hemoglobin 12.4 g/dL (12.2-16.2); Lymphocytes # (auto) 1.7 10 ^3/uL (0.4-5.4); Lymphocytes % (auto) 18.9 % (10.0-50.0); Mean Corpuscular Hgb Conc. 33.3 g/dL (32.0-36.0); Monocytes # (auto) 0.6 10 ^3/uL (0-1.3); Monocytes % (auto) 6.5 % (0.0-12.0); Neutrophils # (auto) 6.5 10 ^3/uL (1.6-8.6); Nucleated Red Blood Cells % 0.1 %; Red Blood Cells 4.29 10^6/uL (4.0-5.20); Red Cell Distribution Width 14.3 % (11.8-14.3); White Blood Cell 8.9 10^3/uL (4.4-10.8)
[2020-10-11 19:39] LABS: Chloride 109 mmol/L (98-107); Potassium 4.4 mmol/L (3.5-5.1); Sodium 142 mmol/L (136-145)
[2020-10-11 19:42] LABS: Albumin 3.1 g/dL (3.4-5.0); Anion Gap 8 (5-15); Blood Urea Nitrogen 12 mg/dL (7-18); Calcium 8.7 mg/dL (8.5-10.1); Carbon Dioxide 25 mmol/L (21-32); GFR African American 97 mL/min; GFR Non-African American 80 mL/min; Glucose 175 mg/dL (74-106); Lipase 76 U/L (73-393)
[2020-10-11 19:47] LABS: Alanine Aminotransferase 64 U/L (13-56); Alkaline Phosphatase 94 U/L (45-117); Aspartate Aminotransferase 20 U/L (15-37); Bilirubin, Total 0.2 mg/dL (0.2-1.0); Total Protein 6.2 g/dL (6.4-8.2)
[2020-10-11] MEDS ORDERED: ONDANSETRON HCL 4 MG/2 ML VIAL IV ONE (20:15)
[2020-10-11] MEDS ORDERED: MORPHINE SULFATE 4 MG/ML SYR/VIAL IV ONE (20:15)
[2020-10-11 20:24] LABS: Urine Bacteria MANY /hpf (None Seen); Urine Blood Negative /uL (Negative); Urine Hyaline Cast FEW /lpf (0 - 2); Urine Mucus FEW (None Seen); Urine Specific Gravity 1.019 (1.001-1.035); Urine WBC 3 /hpf (0 - 5)
[2020-10-11] MEDS ORDERED: HYDROmorphone HCL 2 MG/ML VL IV ONE ×2 (21:15→23:30)
[2020-10-12] MEDS ORDERED: NITROGLYCERIN 0.4 MG SL TAB SL PRN (03:00)
[2020-10-12] MEDS ORDERED: DEXTROSE (50%) 50ML SYRG IV ONE (03:00)
[2020-10-12] MEDS ORDERED: MORPHINE SULF INJ 2 MG/ML SYRINGE 1ML IV PRN (03:00)
[2020-10-12] MEDS ORDERED: ALBUTEROL SULF 2.5 MG/0.5ML(0.5%) NEB SOLN NEB PRN (03:00)
[2020-10-12 03:31] VITALS: BP 141/111
[2020-10-12 03:55] VITALS: BP 144/74
[2020-10-12 05:14] VITALS: BP 144/74
[2020-10-12] MEDS ORDERED: OXYCODONE W/ ACETAMINOPHEN 5/325MG TABLET PO PRN ×2 (05:45→07:30)
[2020-10-12] MEDS ORDERED: OXYCODONE PO SCH (06:00)
[2020-10-12] MEDS ORDERED: ACETAMINOPHEN PO SCH (06:00)
[2020-10-12] MEDS: SUCRALFATE 1 GM TAB PO SCH ×2 (06:02→11:51)
[2020-10-12] MEDS: InsuLIN REG 1unit/0.01ml Soln (100units/ml) SC SCH ×2 (06:03→11:51)
[2020-10-12] MEDS: ACCU-CHEK COMFORT CURVE STRIP VI SCH ×2 (06:03→11:49)
[2020-10-12] MEDS ORDERED: OXY5T (07:27)
[2020-10-12 09:07] VITALS: BP 156/95
[2020-10-12] MEDS ORDERED: POLYETHYLENE GLYCOL 17 GM PWDR PO ONE (09:30)
[2020-10-12] MEDS: oxyCODONE HCL 5MG TAB PO PRN ×2 (09:53→15:55)
[2020-10-12] MEDS: ONDANSETRON HCL 4 MG/2 ML VIAL IV PRN ×2 (09:56→14:00)
[2020-10-12] MEDS ORDERED: ASPirin 81 mg TAB PO SCH (10:00)
[2020-10-12] MEDS ORDERED: NIFEdipine ER 30 MG TAB PO SCH (10:00)
[2020-10-12] MEDS ORDERED: LISINOPRIL 20 MG TAB PO SCH (10:00)
[2020-10-12] MEDS ORDERED: DOCUSATE SOD 100 MG CAP PO SCH (10:00)
[2020-10-12] MEDS ORDERED: METOPROLOL TARTRATE 25 MG TAB PO SCH (10:00)
[2020-10-12] MEDS ORDERED: ENOXAPARIN SOD 40 MG/0.4 ML SYRINGE SC SCH (10:00)
[2020-10-12 10:09] LABS: Basophils # (auto) 0 10 ^3/uL (0-0.2); Basophils % (auto) 0.5 % (0.0-2.0); Eosinophils # (auto) 0.2 10 ^3/uL (0-0.8); Eosinophils % (auto) 1.9 % (0.0-7.0); Hematocrit 36.7 % (36.0-46.0); Hemoglobin 12.3 g/dL (12.2-16.2); Lymphocytes # (auto) 1.8 10 ^3/uL (0.4-5.4); Lymphocytes % (auto) 22.1 % (10.0-50.0); Mean Corpuscular Hemoglobin 29.4 pg (28.0-32.0); Mean Corpuscular Hgb Conc. 33.6 g/dL (32.0-36.0); Mean Corpuscular Volume 87.5 fL (80.0-100.0); Monocytes # (auto) 0.7 10 ^3/uL (0-1.3); Monocytes % (auto) 8.9 % (0.0-12.0); Neutrophils # (auto) 5.5 10 ^3/uL (1.6-8.6); Neutrophils % (auto) 66.6 % (37.0-80.0); Red Blood Cells 4.19 10^6/uL (4.0-5.20); Red Cell Distribution Width 14.2 % (11.8-14.3); White Blood Cell 8.3 10^3/uL (4.4-10.8)
[2020-10-12 10:17] LABS: BUN/Creatinine Ratio 15.7; Calcium 8.7 mg/dL (8.5-10.1); Potassium 3.8 mmol/L (3.5-5.1)
[2020-10-12 10:21] LABS: Bilirubin, Total 0.3 mg/dL (0.2-1.0); Total Protein 6.5 g/dL (6.4-8.2)
[2020-10-12 13:16] VITALS: BP 157/90
[2020-10-12] MEDS ORDERED: OXYC15TA48 PO (13:20)
[2020-10-12] MEDS ORDERED: PROM25TA5 PO (13:20)
[2020-10-12] MEDS ORDERED: NIFE1TAB36 PO (13:20)
[2020-10-12] MEDS ORDERED: LISI40TA11 PO (13:20)
[2020-10-12] MEDS ORDERED: MET50T PO (13:20)
[2020-10-12] MEDS ORDERED: FURO1TAB31 PO (13:42)
[2020-10-12 14:36] VITALS: BP 156/95
== END 2020-10-12 16:28 | disposition home health service (06) | DRG 203 ==
LOC: EDBD 17:55 → EDUNIT# 17:55 → ER 18:06 → TELE 10-12 02:54 → TELE-EAST 10-12 03:45
PROVIDERS: ADMIT Hospitalist; ATTEND Hospitalist
DX: R07.9 Chest pain, unspecified (principal); J96.10 Chronic respiratory failure, unspecified whether with hypoxia or hypercapnia; I11.0 Hypertensive heart disease with heart failure; E66.01 Morbid (severe) obesity due to excess calories; I50.9 Heart failure, unspecified; F11.20 Opioid dependence, uncomplicated; K76.0 Fatty (change of) liver, not elsewhere classified; E11.9 Type 2 diabetes mellitus without complications; Z68.43 Body mass index [BMI] 50.0-59.9, adult; J44.9 Chronic obstructive pulmonary disease, unspecified; F32.9 Major depressive disorder, single episode, unspecified; F41.9 Anxiety disorder, unspecified; K21.9 Gastro-esophageal reflux disease without esophagitis; R53.81 Other malaise; Z20.822 Contact with and (suspected) exposure to COVID-19; G89.4 Chronic pain syndrome; Z88.5 Allergy status to narcotic agent; Z90.49 Acquired absence of other specified parts of digestive tract; Z80.0 Family history of malignant neoplasm of digestive organs; Z82.49 Family history of ischemic heart disease and other diseases of the circulatory system; Z83.3 Family history of diabetes mellitus; Z87.11 Personal history of peptic ulcer disease; Z87.442 Personal history of urinary calculi; Z87.891 Personal history of nicotine dependence; Z88.0 Allergy status to penicillin; Z88.2 Allergy status to sulfonamides
CPT/HCPCS: 36415; 71045; 74176; 80053; 80061; 81001; 82150; 82962; 83690; 83880; 84484; 85025; 87426; 93005; 96374; 96376; G0378; J1815; J2405

== ENCOUNTER 2021-06-09 03:56 | Emergency (ER) | payer MEDICAID ==
[~2021-06-09] VITALS: Ht 165.1 cm; Wt 136.1 kg
[~2021-06-09 03:56] MED LIST changes: -ALBUAER3 IN; -DEXT1SYP9 PO; -DOXY-338 PO; +FURO1TAB31 PO; -IPRIH IN; -LISI20TA28 PO; +LISI40TA11 PO; +MET50T PO; -METO25TA5 PO; -NIFE1TAB31 PO; +NIFE1TAB36 PO; +OXYC15TA48 PO; -OXYC325T14 PO; +PROM25TA5 PO
[2021-06-09 04:59] LABS: Basophils # (auto) 0.1 10 ^3/uL (0-0.2); Basophils % (auto) 1.1 % (0.0-2.0); Eosinophils # (auto) 0.1 10 ^3/uL (0-0.8); Eosinophils % (auto) 0.9 % (0.0-7.0); Hematocrit 37.1 % (36.0-46.0); Hemoglobin 12.4 g/dL (12.2-16.2); Lymphocytes # (auto) 2.3 10 ^3/uL (0.4-5.4); Lymphocytes % (auto) 21.2 % (10.0-50.0); Mean Corpuscular Hemoglobin 27.4 pg (28.0-32.0); Mean Corpuscular Hgb Conc. 33.3 g/dL (32.0-36.0); Mean Corpuscular Volume 82.1 fL (80.0-100.0); Monocytes # (auto) 0.5 10 ^3/uL (0-1.3); Monocytes % (auto) 4.5 % (0.0-12.0); Neutrophils # (auto) 7.8 10 ^3/uL (1.6-8.6); Neutrophils % (auto) 72.3 % (37.0-80.0); Nucleated Red Blood Cells % 0.1 %; Red Blood Cells 4.52 10^6/uL (4.0-5.20); Red Cell Distribution Width 15.2 % (11.8-14.3); White Blood Cell 10.8 10^3/uL (4.4-10.8)
[2021-06-09 05:20] LABS: INR 0.93 (0.9-1.15); Partial Thromboplastin Time 21.9 sec (23.6-33.0)
[2021-06-09] MEDS ORDERED: ACETAMINOPHEN 500 MG TAB PO ONE (05:30)
[2021-06-09 05:35] LABS: Albumin 3.2 g/dL (3.4-5.0); Calcium 8.6 mg/dL (8.5-10.1); Magnesium 2.3 mg/dL (1.6-2.6); Potassium 3.9 mmol/L (3.5-5.1)
[2021-06-09 05:41] LABS: Bilirubin, Total 0.3 mg/dL (0.2-1.0); Total Protein 6.8 g/dL (6.4-8.2)
[2021-06-09] MEDS ORDERED: ONDANSETRON ODT 4 MG TAB PO ONE (06:00)
[2021-06-09 07:06] LABS: Urine Bacteria FEW /hpf (None Seen); Urine Blood Negative /uL (Negative); Urine Specific Gravity 1.023 (1.001-1.035); Urine WBC 1 /hpf (0 - 5)
[2021-06-09 07:20] VITALS: BP 132/93
== END 2021-06-09 07:55 | disposition left against medical advice (07) ==
LOC: EDBD 03:56 → ER 03:56
DX: R07.89 Other chest pain (principal); Z53.21 Procedure and treatment not carried out due to patient leaving prior to being seen by health care provider
CPT/HCPCS: 36415; 71045; 80053; 81001; 83735; 83880; 84484; 85025; 85610; 85730; 93005; Q0162

== ENCOUNTER 2021-07-27 15:08 | Emergency (ER) | payer MEDICAID ==
[~2021-07-27] VITALS: Ht 167.6 cm; Wt 127.0 kg
[2021-07-27] MEDS ORDERED: TETANUS-DIPTH-ACEL PERTUSSIS 0.5ML SYR Tdap IM ONE (16:15)
[2021-07-27 16:17] VITALS: BP 136/93
== END 2021-07-27 16:19 | disposition home or self-care (01) ==
LOC: ER 15:08
DX: S40.811A Abrasion of right upper arm, initial encounter (principal); I11.0 Hypertensive heart disease with heart failure; I50.9 Heart failure, unspecified; J44.9 Chronic obstructive pulmonary disease, unspecified; E11.9 Type 2 diabetes mellitus without complications; E78.5 Hyperlipidemia, unspecified; Z90.49 Acquired absence of other specified parts of digestive tract; Z87.891 Personal history of nicotine dependence; Z79.899 Other long term (current) drug therapy; Z88.0 Allergy status to penicillin; Z88.5 Allergy status to narcotic agent; Z88.2 Allergy status to sulfonamides; Z88.8 Allergy status to other drugs, medicaments and biological substances; W26.8XXA Contact with other sharp object(s), not elsewhere classified, initial encounter; Y93.89 Activity, other specified; Y92.89 Other specified places as the place of occurrence of the external cause; Y99.8 Other external cause status
CPT/HCPCS: 90471; 90715

== ENCOUNTER 2021-11-04 22:47 | Inpatient (IN) | payer MEDICAID ==
[~2021-11-04] VITALS: Ht 167.6 cm; Wt 126.0 kg
[2021-11-05] MEDS ORDERED: HYDROmorphone HCL 2 MG/ML VL/or syr IV ONE ×3 (00:15→06:45)
[2021-11-05] MEDS ORDERED: ONDANSETRON HCL 4 MG/2 ML VIAL IV ONE ×3 (00:15→06:45)
[2021-11-05] MEDS ORDERED: IOHEXOL 350 MG/ML 100ML IJ ONE (00:24)
[2021-11-05 00:58] LABS: Basophils # (auto) 0.2 10 ^3/uL (0-0.2); Basophils % (auto) 1.5 % (0.0-2.0); Eosinophils # (auto) 0.2 10 ^3/uL (0-0.8); Eosinophils % (auto) 1.7 % (0.0-7.0); Hematocrit 37.7 % (36.0-46.0); Hemoglobin 12.6 g/dL (12.2-16.2); Lymphocytes # (auto) 3.3 10 ^3/uL (0.4-5.4); Lymphocytes % (auto) 32.1 % (10.0-50.0); Mean Corpuscular Hemoglobin 27.9 pg (28.0-32.0); Mean Corpuscular Hgb Conc. 33.3 g/dL (32.0-36.0); Mean Corpuscular Volume 83.9 fL (80.0-100.0); Monocytes # (auto) 0.7 10 ^3/uL (0-1.3); Monocytes % (auto) 7.2 % (0.0-12.0); Neutrophils # (auto) 5.9 10 ^3/uL (1.6-8.6); Neutrophils % (auto) 57.5 % (37.0-80.0); Nucleated Red Blood Cells % 0.3 %; Red Blood Cells 4.49 10^6/uL (4.0-5.20); Red Cell Distribution Width 15.6 % (11.8-14.3); White Blood Cell 10.3 10^3/uL (4.4-10.8)
[2021-11-05 01:08] LABS: BUN/Creatinine Ratio 14.4; Calcium 8.3 mg/dL (8.5-10.1); Potassium 3.6 mmol/L (3.5-5.1)
[2021-11-05 01:22] LABS: Bilirubin, Total 0.3 mg/dL (0.2-1.0); Total Protein 6.5 g/dL (6.4-8.2)
[2021-11-05] MEDS ORDERED: VANCOMYCIN 1GM/250ML 250 ML IV ONE (07:00)
[2021-11-05] MEDS ORDERED: HYDROcodone-ACET 10/325MG TAB PO PRN (08:45)
[2021-11-05] MEDS ORDERED: DEXTROSE (50%) 50ML SYRG IV PRN (09:30)
[2021-11-05] MEDS: LISINOPRIL 20 MG TAB PO SCH (10:00)
[2021-11-05] MEDS: NYSTATIN TOPICAL POWDER 15GM TOP SCH ×3 (10:50→23:23)
[2021-11-05] MEDS: NIFEdipine ER 30 MG TAB PO SCH (10:51)
[2021-11-05] MEDS: METOPROLOL TARTRATE 50 MG TAB PO SCH (10:52)
[2021-11-05] MEDS: InsuLIN REG 1unit/0.01ml Soln (100units/ml) SC SCH ×3 (11:30→22:23)
[2021-11-05] MEDS: ACCU-CHEK COMFORT CURVE STRIP VI SCH ×3 (11:40→22:17)
[2021-11-05] MEDS: CLINDAMYCIN 300MG IV 50 ML IV SCH ×2 (12:25→22:17)
[2021-11-05] MEDS: oxyCODONE HCL 5MG TAB PO PRN ×2 (13:00→18:38)
[2021-11-06] MEDS ORDERED: ONDANSETRON HCL 4 MG/2 ML VIAL IV ONE
[2021-11-06] MEDS ORDERED: MORPHINE SULFATE INJ 2 MG/ml SYRG IV ONE
[2021-11-06] MEDS ORDERED: oxyCODONE ER 10 MG TAB PO ONE (01:55)
[2021-11-06] MEDS ORDERED: oxyCODONE HCL 5MG TAB ONE (01:55)
[2021-11-06] MEDS: oxyCODONE HCL 5MG TAB PO PRN ×6 (01:58→23:37)
[2021-11-06] MEDS: CLINDAMYCIN 300MG IV 50 ML IV SCH ×4 (06:02→22:21)
[2021-11-06 06:46] LABS: Basophils # (auto) 0 10 ^3/uL (0-0.2); Basophils % (auto) 0.3 % (0.0-2.0); Eosinophils # (auto) 0.1 10 ^3/uL (0-0.8); Eosinophils % (auto) 1.2 % (0.0-7.0); Hematocrit 37.3 % (36.0-46.0); Hemoglobin 12.6 g/dL (12.2-16.2); Lymphocytes % (auto) 26.6 % (10.0-50.0); Mean Corpuscular Hemoglobin 28.6 pg (28.0-32.0); Mean Corpuscular Hgb Conc. 33.8 g/dL (32.0-36.0); Mean Corpuscular Volume 84.7 fL (80.0-100.0); Monocytes # (auto) 0.7 10 ^3/uL (0-1.3); Neutrophils # (auto) 7.5 10 ^3/uL (1.6-8.6); Neutrophils % (auto) 65.9 % (37.0-80.0); Red Blood Cells 4.41 10^6/uL (4.0-5.20); Red Cell Distribution Width 15.5 % (11.8-14.3); White Blood Cell 11.3 10^3/uL (4.4-10.8)
[2021-11-06] MEDS: ACCU-CHEK COMFORT CURVE STRIP VI SCH ×4 (07:01→22:20)
[2021-11-06] MEDS: InsuLIN REG 1unit/0.01ml Soln (100units/ml) SC SCH ×4 (07:05→22:20)
[2021-11-06 07:11] LABS: Calcium 8.9 mg/dL (8.5-10.1); Potassium 3.6 mmol/L (3.5-5.1)
[2021-11-06 07:13] LABS: BUN/Creatinine Ratio 16.5
[2021-11-06] MEDS: NIFEdipine ER 30 MG TAB PO SCH (09:44)
[2021-11-06] MEDS: LISINOPRIL 20 MG TAB PO SCH (09:44)
[2021-11-06] MEDS: METOPROLOL TARTRATE 50 MG TAB PO SCH (09:44)
[2021-11-06] MEDS: NYSTATIN TOPICAL POWDER 15GM TOP SCH ×2 (09:45→22:20)
[2021-11-06] MEDS: METOCLOPRAMIDE HCL 5MG/ml INJ 2ml VIAL IV SCH ×2 (11:42→16:45)
[2021-11-06 16:55] VITALS: BP 130/75
[2021-11-06] MEDS ORDERED: ALPR1TAB2 PO (18:26)
[2021-11-06 22:00] VITALS: BP 113/66
[2021-11-07] MEDS ORDERED: CLINDAMYCIN HCL 150 MG CAP PO ONE (01:00)
[2021-11-07] MEDS: oxyCODONE HCL 5MG TAB PO PRN ×5 (04:14→20:32)
[2021-11-07 05:00] VITALS: BP 147/86
[2021-11-07] MEDS: CLINDAMYCIN 300MG IV 50 ML IV SCH (06:00)
[2021-11-07] MEDS: InsuLIN REG 1unit/0.01ml Soln (100units/ml) SC SCH ×4 (06:15→22:03)
[2021-11-07] MEDS: ACCU-CHEK COMFORT CURVE STRIP VI SCH ×4 (06:15→22:02)
[2021-11-07 09:00] VITALS: BP 145/78
[2021-11-07] MEDS: METOPROLOL TARTRATE 50 MG TAB PO SCH (09:32)
[2021-11-07] MEDS: NIFEdipine ER 30 MG TAB PO SCH (09:32)
[2021-11-07] MEDS: LISINOPRIL 20 MG TAB PO SCH (09:32)
[2021-11-07] MEDS: NYSTATIN TOPICAL POWDER 15GM TOP SCH ×2 (10:00→22:02)
[2021-11-07] MEDS: METOCLOPRAMIDE HCL 5MG/ml INJ 2ml VIAL IV SCH (10:00)
[2021-11-07 13:00] VITALS: BP 142/86
[2021-11-07] MEDS ORDERED: CLIN150C PO (14:31)
[2021-11-07] MEDS ORDERED: PROBCAP9 OR (14:31)
[2021-11-07 16:34] VITALS: BP 120/66
[2021-11-07] MEDS: CLINDAMYCIN HCL 150 MG CAP PO SCH ×2 (17:40→23:43)
[2021-11-07 22:00] VITALS: BP 124/76
[2021-11-08] MEDS: oxyCODONE HCL 5MG TAB PO PRN (03:42)
[2021-11-08 05:00] VITALS: BP 108/63
[2021-11-08] MEDS: ACCU-CHEK COMFORT CURVE STRIP VI SCH (06:25)
[2021-11-08] MEDS: CLINDAMYCIN HCL 150 MG CAP PO SCH (06:25)
[2021-11-08] MEDS: InsuLIN REG 1unit/0.01ml Soln (100units/ml) SC SCH (06:25)
[2021-11-08 07:11] LABS: Basophils # (auto) 0 10 ^3/uL (0-0.2); Basophils % (auto) 0.3 % (0.0-2.0); Eosinophils # (auto) 0.2 10 ^3/uL (0-0.8); Eosinophils % (auto) 1.7 % (0.0-7.0); Hematocrit 44.5 % (36.0-46.0); Hemoglobin 14.2 g/dL (12.2-16.2); Lymphocytes # (auto) 3.2 10 ^3/uL (0.4-5.4); Lymphocytes % (auto) 28.5 % (10.0-50.0); Mean Corpuscular Hgb Conc. 31.9 g/dL (32.0-36.0); Mean Corpuscular Volume 87.7 fL (80.0-100.0); Monocytes # (auto) 0.7 10 ^3/uL (0-1.3); Neutrophils # (auto) 7.2 10 ^3/uL (1.6-8.6); Neutrophils % (auto) 63.5 % (37.0-80.0); Nucleated Red Blood Cells % 0.1 %; Red Blood Cells 5.07 10^6/uL (4.0-5.20); Red Cell Distribution Width 15.6 % (11.8-14.3); White Blood Cell 11.3 10^3/uL (4.4-10.8)
[2021-11-08 07:42] LABS: BUN/Creatinine Ratio 20.5; Calcium 8.7 mg/dL (8.5-10.1); Potassium 4.4 mmol/L (3.5-5.1)
[2021-11-08] MEDS: LISINOPRIL 20 MG TAB PO SCH (09:13)
[2021-11-08] MEDS: NIFEdipine ER 30 MG TAB PO SCH (09:14)
[2021-11-08] MEDS: METOPROLOL TARTRATE 50 MG TAB PO SCH (09:14)
[2021-11-08] MEDS: NYSTATIN TOPICAL POWDER 15GM TOP SCH (09:15)
[2021-11-08] MEDS ORDERED: FLORASTOR (S. BOULARDII) 250 MG CAP PO SCH (10:00)
[2021-11-08] MEDS ORDERED: ENOXAPARIN SOD 40 MG/0.4 ML SYRINGE SC SCH (10:00)
[2021-11-08 10:21] VITALS: BP 116/78
== END 2021-11-08 13:28 | disposition home or self-care (01) | DRG 383 ==
LOC: ER 22:47 → EDBD 22:47 → EDUNIT# 22:47 → OVERFLOW 11-05 09:04 → WEST WING 11-06 13:58
PROVIDERS: ADMIT Registered Nurse; ATTEND Hospitalist
DX: L03.317 Cellulitis of buttock (principal); E44.1 Mild protein-calorie malnutrition; I11.0 Hypertensive heart disease with heart failure; I50.9 Heart failure, unspecified; B35.6 Tinea cruris; E66.01 Morbid (severe) obesity due to excess calories; E11.65 Type 2 diabetes mellitus with hyperglycemia; E86.0 Dehydration; Z20.822 Contact with and (suspected) exposure to COVID-19; J44.9 Chronic obstructive pulmonary disease, unspecified; G89.4 Chronic pain syndrome; F41.9 Anxiety disorder, unspecified; F32.A Depression, unspecified; E87.6 Hypokalemia; Z88.6 Allergy status to analgesic agent; Z88.5 Allergy status to narcotic agent; Z88.0 Allergy status to penicillin; Z88.2 Allergy status to sulfonamides; Z88.8 Allergy status to other drugs, medicaments and biological substances; Z68.41 Body mass index [BMI] 40.0-44.9, adult; Z80.0 Family history of malignant neoplasm of digestive organs; Z82.49 Family history of ischemic heart disease and other diseases of the circulatory system; Z83.3 Family history of diabetes mellitus; Z87.11 Personal history of peptic ulcer disease; Z87.440 Personal history of urinary (tract) infections; Z87.891 Personal history of nicotine dependence; Z90.49 Acquired absence of other specified parts of digestive tract
CPT/HCPCS: 36415; 71045; 74177; 76881; 80048; 80053; 82962; 85025; 96365; 96375; G0378; J1815; J2405; J3490

== ENCOUNTER 2021-12-18 19:38 | Inpatient (IN) | payer MEDICAID ==
[~2021-12-18] VITALS: Ht 172.7 cm; Wt 126.7 kg
[~2021-12-18 19:38] MED LIST changes: +CLIN150C PO; +PROBCAP9 OR; -SUCR1TAB22 PO
[2021-12-18 20:07] LABS: Basophils # (auto) 0.1 10 ^3/uL (0-0.2); Basophils % (auto) 0.6 % (0.0-2.0); Eosinophils # (auto) 0 10 ^3/uL (0-0.8); Eosinophils % (auto) 0.2 % (0.0-7.0); Hematocrit 44.2 % (36.0-46.0); Hemoglobin 14.6 g/dL (12.2-16.2); Lymphocytes # (auto) 3.6 10 ^3/uL (0.4-5.4); Lymphocytes % (auto) 20.3 % (10.0-50.0); Mean Corpuscular Hemoglobin 27.6 pg (28.0-32.0); Mean Corpuscular Hgb Conc. 33.1 g/dL (32.0-36.0); Mean Corpuscular Volume 83.4 fL (80.0-100.0); Monocytes # (auto) 0.9 10 ^3/uL (0-1.3); Monocytes % (auto) 4.8 % (0.0-12.0); Neutrophils # (auto) 13.1 10 ^3/uL (1.6-8.6); Neutrophils % (auto) 74.1 % (37.0-80.0); Nucleated Red Blood Cells % 0.1 %; Red Blood Cells 5.29 10^6/uL (4.0-5.20); Red Cell Distribution Width 13.8 % (11.8-14.3); White Blood Cell 17.6 10^3/uL (4.4-10.8)
[2021-12-18 20:18] LABS: Albumin 3.7 g/dL (3.4-5.0); Calcium 9.1 mg/dL (8.5-10.1); Potassium 3.7 mmol/L (3.5-5.1)
[2021-12-18 20:22] LABS: BUN/Creatinine Ratio 13.7; Bilirubin, Total 0.4 mg/dL (0.2-1.0); Total Protein 7.6 g/dL (6.4-8.2)
[2021-12-19] MEDS ORDERED: ONDANSETRON HCL 4 MG/2 ML VIAL IV ONE (01:00)
[2021-12-19] MEDS ORDERED: SODIUM CHLORIDE 0.9% 1,000 ML IV ONE (01:00)
[2021-12-19] MEDS ORDERED: HYDROmorphone HCL 2 MG/ML VL/or syr IV ONE ×3 (01:00→12:00)
[2021-12-19] MEDS ORDERED: VANCOMYCIN 1GM/250ML 250 ML IV ONE ×2 (05:15→15:30)
[2021-12-19] MEDS ORDERED: HYDROcodone-ACET 5/325MG TAB PO PRN (05:45)
[2021-12-19] MEDS ORDERED: DEXTROSE (50%) 50ML SYRG IV PRN (05:45)
[2021-12-19] MEDS ORDERED: ACETAMINOPHEN 325 MG TAB PO PRN (05:45)
[2021-12-19] MEDS: ONDANSETRON HCL 4 MG/2 ML VIAL IV PRN (07:04)
[2021-12-19] MEDS: ACCU-CHEK COMFORT CURVE STRIP VI SCH ×4 (07:22→22:27)
[2021-12-19] MEDS: InsuLIN REG 1unit/0.01ml Soln (100units/ml) SC SCH ×4 (07:28→22:26)
[2021-12-19] MEDS: LISINOPRIL 20 MG TAB PO SCH (10:02)
[2021-12-19] MEDS: NIFEdipine ER 30 MG TAB PO SCH (10:03)
[2021-12-19] MEDS: METOPROLOL SUCCINATE XL 50 MG TAB PO SCH (10:03)
[2021-12-19] MEDS: FUROSEMIDE 40 MG TAB PO SCH (10:03)
[2021-12-19] MEDS: ENOXAPARIN SOD 40 MG/0.4 ML SYRINGE SC SCH (10:04)
[2021-12-19 10:56] LABS: Urine Bacteria FEW /hpf (None Seen); Urine Blood Negative /uL (Negative); Urine Mucus FEW (None Seen); Urine Specific Gravity 1.029 (1.001-1.035); Urine WBC 1 /hpf (0 - 5)
[2021-12-19] MEDS ORDERED: levoFLOXacin 250 MG TAB PO ONE (15:15)
[2021-12-19] MEDS ORDERED: VANCOMYCIN PER PHARMACY 0 MG IV SCH (15:15)
[2021-12-19] MEDS: HYDROmorphone HCL 2 MG/ML VL/or syr IV PRN ×2 (16:53→22:45)
[2021-12-19 22:42] VITALS: BP 114/73
[2021-12-20 04:17] LABS: Basophils # (auto) 0.1 10 ^3/uL (0-0.2); Basophils % (auto) 0.5 % (0.0-2.0); Eosinophils # (auto) 0.3 10 ^3/uL (0-0.8); Eosinophils % (auto) 1.9 % (0.0-7.0); Hematocrit 39.7 % (36.0-46.0); Hemoglobin 13.3 g/dL (12.2-16.2); Lymphocytes # (auto) 4.3 10 ^3/uL (0.4-5.4); Lymphocytes % (auto) 31.7 % (10.0-50.0); Mean Corpuscular Hemoglobin 28.2 pg (28.0-32.0); Mean Corpuscular Hgb Conc. 33.5 g/dL (32.0-36.0); Monocytes % (auto) 7.2 % (0.0-12.0); Neutrophils % (auto) 58.7 % (37.0-80.0); Red Blood Cells 4.73 10^6/uL (4.0-5.20); White Blood Cell 13.6 10^3/uL (4.4-10.8)
[2021-12-20] MEDS: ONDANSETRON HCL 4 MG/2 ML VIAL IV PRN ×2 (04:19→08:22)
[2021-12-20] MEDS: HYDROmorphone HCL 2 MG/ML VL/or syr IV PRN ×2 (04:20→09:36)
[2021-12-20 04:40] LABS: Albumin 3.2 g/dL (3.4-5.0); BUN/Creatinine Ratio 21.1; Calcium 8.8 mg/dL (8.5-10.1); Potassium 3.8 mmol/L (3.5-5.1)
[2021-12-20 04:42] VITALS: BP 116/73
[2021-12-20 04:46] LABS: Bilirubin, Total 0.4 mg/dL (0.2-1.0); Total Protein 6.8 g/dL (6.4-8.2)
[2021-12-20] MEDS ORDERED: VANCOMYCIN 1GM/250ML 250 ML IV SCH (05:00)
[2021-12-20] MEDS: ACCU-CHEK COMFORT CURVE STRIP VI SCH (07:02)
[2021-12-20] MEDS: InsuLIN REG 1unit/0.01ml Soln (100units/ml) SC SCH (07:04)
[2021-12-20] MEDS: METOPROLOL SUCCINATE XL 50 MG TAB PO SCH (08:31)
[2021-12-20] MEDS: NIFEdipine ER 30 MG TAB PO SCH (08:32)
[2021-12-20] MEDS: LISINOPRIL 20 MG TAB PO SCH (08:33)
[2021-12-20] MEDS: FUROSEMIDE 40 MG TAB PO SCH (08:35)
[2021-12-20] MEDS: ENOXAPARIN SOD 40 MG/0.4 ML SYRINGE SC SCH (08:37)
[2021-12-20 09:00] VITALS: BP 126/87
[2021-12-20] MEDS ORDERED: levoFLOXacin 250 MG TAB PO SCH (10:00)
[2021-12-20 10:06] VITALS: BP 122/80
== END 2021-12-20 10:50 | disposition left against medical advice (07) | DRG 720 ==
LOC: ER 19:38 → OVERFLOW 12-19 05:45 → CENTRAL 12-19 20:54
PROVIDERS: ADMIT Nurse Practitioner; ATTEND Internal Medicine Nephrology
DX: A41.9 Sepsis, unspecified organism (principal); N17.9 Acute kidney failure, unspecified; I50.9 Heart failure, unspecified; E11.622 Type 2 diabetes mellitus with other skin ulcer; L98.429 Non-pressure chronic ulcer of back with unspecified severity; I11.0 Hypertensive heart disease with heart failure; S31.000A Unspecified open wound of lower back and pelvis without penetration into retroperitoneum, initial encounter; F32.A Depression, unspecified; F41.9 Anxiety disorder, unspecified; U09.9 Post COVID-19 condition, unspecified; X58.XXXA Exposure to other specified factors, initial encounter; Z53.29 Procedure and treatment not carried out because of patient's decision for other reasons; J44.9 Chronic obstructive pulmonary disease, unspecified; E66.01 Morbid (severe) obesity due to excess calories; E78.5 Hyperlipidemia, unspecified; Z88.0 Allergy status to penicillin; Z88.5 Allergy status to narcotic agent; Z88.2 Allergy status to sulfonamides; Z88.8 Allergy status to other drugs, medicaments and biological substances; Z80.0 Family history of malignant neoplasm of digestive organs; Z82.49 Family history of ischemic heart disease and other diseases of the circulatory system; Z83.3 Family history of diabetes mellitus; Z87.11 Personal history of peptic ulcer disease; Z87.442 Personal history of urinary calculi; Z87.891 Personal history of nicotine dependence; Z90.49 Acquired absence of other specified parts of digestive tract; Y93.89 Activity, other specified; Y92.89 Other specified places as the place of occurrence of the external cause; Y99.8 Other external cause status; Z79.84 Long term (current) use of oral hypoglycemic drugs; Z68.41 Body mass index [BMI] 40.0-44.9, adult
CPT/HCPCS: 36415; 71045; 74176; 80053; 81001; 82962; 83880; 84484; 85025; 87040; 93005; 96361; 96374; 96375; G0378; J1815; J2405

== ENCOUNTER 2022-01-05 19:04 | Inpatient (IN) | payer MEDICAID ==
[~2022-01-05] VITALS: Ht 167.6 cm; Wt 133.0 kg
[2022-01-05 19:39] LABS: Basophils # (auto) 0.1 10 ^3/uL (0-0.2); Eosinophils # (auto) 0.2 10 ^3/uL (0-0.8); Hematocrit 38.2 % (36.0-46.0); Hemoglobin 12.5 g/dL (12.2-16.2); Lymphocytes # (auto) 2.9 10 ^3/uL (0.4-5.4); Lymphocytes % (auto) 29.2 % (10.0-50.0); Mean Corpuscular Hemoglobin 28.1 pg (28.0-32.0); Mean Corpuscular Hgb Conc. 32.8 g/dL (32.0-36.0); Mean Corpuscular Volume 85.6 fL (80.0-100.0); Monocytes # (auto) 0.8 10 ^3/uL (0-1.3); Monocytes % (auto) 7.7 % (0.0-12.0); Neutrophils # (auto) 5.9 10 ^3/uL (1.6-8.6); Neutrophils % (auto) 60.1 % (37.0-80.0); Nucleated Red Blood Cells % 0.1 %; Red Blood Cells 4.46 10^6/uL (4.0-5.20); Red Cell Distribution Width 14.2 % (11.8-14.3); White Blood Cell 9.9 10^3/uL (4.4-10.8)
[2022-01-05 19:44] LABS: INR 0.88 (0.9-1.15); Partial Thromboplastin Time 21.7 sec (24.6-33.4)
[2022-01-05 19:46] LABS: Albumin 3.3 g/dL (3.4-5.0); BUN/Creatinine Ratio 18.5; Calcium 8.5 mg/dL (8.5-10.1)
[2022-01-05 19:49] LABS: Bilirubin, Total 0.2 mg/dL (0.2-1.0); Total Protein 6.6 g/dL (6.4-8.2)
[2022-01-05] MEDS ORDERED: FUROSEMIDE 40 MG/4 ML VIAL IV ONE (20:15)
[2022-01-05] MEDS ORDERED: DOCUSATE SOD 100 MG CAP PO PRN (21:15)
[2022-01-05] MEDS ORDERED: ACETAMINOPHEN 325 MG TAB PO PRN (21:15)
[2022-01-05] MEDS ORDERED: TEMAZEPAM 15 MG CAP PO PRN (21:15)
[2022-01-05] MEDS ORDERED: hydrALAZINE HCL 20 MG/ML VL IV PRN (21:15)
[2022-01-05] MEDS ORDERED: DEXTROSE (50%) 50ML SYRG IV PRN (21:15)
[2022-01-05 21:28] LABS: Urine Bacteria FEW /hpf (None Seen); Urine Blood Negative /uL (Negative); Urine Mucus FEW (None Seen); Urine Specific Gravity 1.023 (1.001-1.035); Urine WBC 2 /hpf (0 - 5)
[2022-01-05] MEDS: SODIUM CHLOR 0.9% PF (SALINE LOCK) 10ML VIAL/SYR IV SCH (22:00)
[2022-01-05] MEDS ORDERED: NITROGLYCERIN 0.4 MG SL TAB SL PRN (22:15)
[2022-01-05] MEDS ORDERED: fentaNYL CITRATE 100 MCG/2 ML VL IV ONE (22:30)
[2022-01-06] MEDS: InsuLIN REG 1unit/0.01ml Soln (100units/ml) SC SCH ×5 (01:22→21:33)
[2022-01-06] MEDS: CARVEDILOL 3.125 MG TAB PO SCH ×2 (01:24→09:03)
[2022-01-06] MEDS: ACCU-CHEK COMFORT CURVE STRIP VI SCH ×5 (01:34→21:31)
[2022-01-06] MEDS ORDERED: HYDROmorphone HCL 2 MG/ML VL/or syr IV ONE (03:45)
[2022-01-06 04:42] LABS: Potassium 3.8 mmol/L (3.5-5.1)
[2022-01-06 04:47] LABS: Albumin 3.4 g/dL (3.4-5.0); BUN/Creatinine Ratio 17.3; Calcium 8.7 mg/dL (8.5-10.1)
[2022-01-06 04:49] LABS: Bilirubin, Total 0.3 mg/dL (0.2-1.0); Total Protein 6.9 g/dL (6.4-8.2)
[2022-01-06 05:01] LABS: Basophils # (auto) 0.1 10 ^3/uL (0-0.2); Basophils % (auto) 1.2 % (0.0-2.0); Eosinophils # (auto) 0.2 10 ^3/uL (0-0.8); Hematocrit 38.4 % (36.0-46.0); Hemoglobin 12.7 g/dL (12.2-16.2); Mean Corpuscular Hgb Conc. 33.1 g/dL (32.0-36.0); Mean Corpuscular Volume 84.8 fL (80.0-100.0); Monocytes # (auto) 0.7 10 ^3/uL (0-1.3); Neutrophils # (auto) 6.6 10 ^3/uL (1.6-8.6); Neutrophils % (auto) 61.8 % (37.0-80.0); Red Blood Cells 4.53 10^6/uL (4.0-5.20); Red Cell Distribution Width 14.2 % (11.8-14.3); White Blood Cell 10.6 10^3/uL (4.4-10.8)
[2022-01-06] MEDS: SODIUM CHLOR 0.9% PF (SALINE LOCK) 10ML VIAL/SYR IV SCH ×3 (05:31→21:30)
[2022-01-06] MEDS ORDERED: HYDROmorphone HCL 2 MG/ML VL/or syr ONE (08:46)
[2022-01-06] MEDS: FAMOTIDINE (10MG/ML) 2ML VL IV SCH (09:02)
[2022-01-06] MEDS: HYDROmorphone HCL 2 MG/ML VL/or syr IV PRN ×4 (09:02→21:21)
[2022-01-06] MEDS: ONDANSETRON HCL 4 MG/2 ML VIAL IV PRN ×2 (09:02→13:37)
[2022-01-06] MEDS: ASPirin 81 mg TAB PO SCH (09:02)
[2022-01-06] MEDS: ENOXAPARIN SOD 40 MG/0.4 ML SYRINGE SC SCH (09:03)
[2022-01-06] MEDS ORDERED: FUROSEMIDE 40 MG/4 ML VIAL IV SCH (10:00)
[2022-01-06] MEDS ORDERED: LISINOPRIL 10 MG TAB PO ONE (11:30)
[2022-01-06] MEDS: DOXYCYCLINE 100MG/250ML 250 ML IV SCH ×2 (11:56→22:43)
[2022-01-06 17:00] VITALS: BP 121/82
[2022-01-06] MEDS: METOPROLOL TARTRATE 25 MG TAB PO SCH (21:22)
[2022-01-06 22:00] VITALS: BP 120/60
[2022-01-06] MEDS: FUROSEMIDE 40 MG/4 ML VIAL IV SCH (22:43)
[2022-01-07] MEDS: HYDROmorphone HCL 2 MG/ML VL/or syr IV PRN ×8 (00:15→21:36)
[2022-01-07 05:00] VITALS: BP 108/61
[2022-01-07] MEDS: ACCU-CHEK COMFORT CURVE STRIP VI SCH ×4 (06:17→21:40)
[2022-01-07] MEDS: SODIUM CHLOR 0.9% PF (SALINE LOCK) 10ML VIAL/SYR IV SCH ×3 (06:17→21:36)
[2022-01-07] MEDS: FUROSEMIDE 40 MG/4 ML VIAL IV SCH ×2 (06:26→18:55)
[2022-01-07] MEDS: InsuLIN REG 1unit/0.01ml Soln (100units/ml) SC SCH ×4 (06:34→21:41)
[2022-01-07 08:11] LABS: Calcium 8.8 mg/dL (8.5-10.1); Potassium 4.1 mmol/L (3.5-5.1)
[2022-01-07 08:35] VITALS: BP 131/88
[2022-01-07] MEDS: FAMOTIDINE (10MG/ML) 2ML VL IV SCH (09:45)
[2022-01-07] MEDS: LISINOPRIL 10 MG TAB PO SCH (09:46)
[2022-01-07] MEDS: ASPirin 81 mg TAB PO SCH (09:46)
[2022-01-07] MEDS: METOPROLOL TARTRATE 25 MG TAB PO SCH ×2 (09:47→21:39)
[2022-01-07] MEDS: ENOXAPARIN SOD 40 MG/0.4 ML SYRINGE SC SCH (09:47)
[2022-01-07] MEDS: DOXYCYCLINE 100MG/250ML 250 ML IV SCH ×2 (12:06→22:57)
[2022-01-07] MEDS: ONDANSETRON HCL 4 MG/2 ML VIAL IV PRN (12:24)
[2022-01-07 12:40] VITALS: BP 129/69
[2022-01-07 16:35] VITALS: BP 135/78
[2022-01-07 21:38] VITALS: BP 125/79
[2022-01-08] MEDS: HYDROmorphone HCL 2 MG/ML VL/or syr IV PRN ×6 (00:59→19:51)
[2022-01-08] MEDS: DOXYCYCLINE 100MG/250ML 250 ML IV SCH ×2 (01:00→08:39)
[2022-01-08 05:04] VITALS: BP 150/72
[2022-01-08] MEDS: FUROSEMIDE 40 MG/4 ML VIAL IV SCH (05:07)
[2022-01-08] MEDS: SODIUM CHLOR 0.9% PF (SALINE LOCK) 10ML VIAL/SYR IV SCH ×3 (05:07→22:00)
[2022-01-08] MEDS: ACCU-CHEK COMFORT CURVE STRIP VI SCH ×4 (06:13→22:47)
[2022-01-08] MEDS: InsuLIN REG 1unit/0.01ml Soln (100units/ml) SC SCH ×4 (06:14→22:49)
[2022-01-08] MEDS: LISINOPRIL 10 MG TAB PO SCH (08:33)
[2022-01-08] MEDS: FAMOTIDINE (10MG/ML) 2ML VL IV SCH (08:33)
[2022-01-08] MEDS: METOPROLOL TARTRATE 25 MG TAB PO SCH ×2 (08:34→22:46)
[2022-01-08] MEDS: ENOXAPARIN SOD 40 MG/0.4 ML SYRINGE SC SCH (08:39)
[2022-01-08] MEDS: ASPirin 81 mg TAB PO SCH (08:40)
[2022-01-08] MEDS: ONDANSETRON HCL 4 MG/2 ML VIAL IV PRN (08:42)
[2022-01-08 09:00] VITALS: BP 143/83
[2022-01-08] MEDS: oxyCODONE ER 20 MG TAB PO SCH ×3 (10:00→22:31)
[2022-01-08 10:37] LABS: Basophils # (auto) 0.2 10 ^3/uL (0-0.2); Basophils % (auto) 1.7 % (0.0-2.0); Eosinophils # (auto) 0.1 10 ^3/uL (0-0.8); Eosinophils % (auto) 0.9 % (0.0-7.0); Hematocrit 40.2 % (36.0-46.0); Hemoglobin 13.2 g/dL (12.2-16.2); Lymphocytes # (auto) 2.3 10 ^3/uL (0.4-5.4); Mean Corpuscular Hemoglobin 28.3 pg (28.0-32.0); Mean Corpuscular Hgb Conc. 32.8 g/dL (32.0-36.0); Mean Corpuscular Volume 86.1 fL (80.0-100.0); Monocytes # (auto) 0.6 10 ^3/uL (0-1.3); Monocytes % (auto) 5.1 % (0.0-12.0); Neutrophils # (auto) 8.8 10 ^3/uL (1.6-8.6); Neutrophils % (auto) 73.3 % (37.0-80.0); Nucleated Red Blood Cells % 0.1 %; Red Blood Cells 4.67 10^6/uL (4.0-5.20); Red Cell Distribution Width 14.2 % (11.8-14.3)
[2022-01-08 11:58] LABS: BUN/Creatinine Ratio 16.5; Calcium 8.8 mg/dL (8.5-10.1); Magnesium 1.8 mg/dL (1.6-2.6); Potassium 3.9 mmol/L (3.5-5.1)
[2022-01-08 13:00] VITALS: BP 141/77
[2022-01-08 17:00] VITALS: BP 134/87
[2022-01-08 20:00] VITALS: BP 128/70
[2022-01-08 21:35] VITALS: BP 128/70
[2022-01-09] MEDS: HYDROmorphone HCL 2 MG/ML VL/or syr IV PRN ×7 (01:14→23:47)
[2022-01-09 04:39] VITALS: BP 137/74
[2022-01-09] MEDS: SODIUM CHLOR 0.9% PF (SALINE LOCK) 10ML VIAL/SYR IV SCH ×3 (06:00→22:16)
[2022-01-09] MEDS: InsuLIN REG 1unit/0.01ml Soln (100units/ml) SC SCH ×4 (07:04→22:19)
[2022-01-09] MEDS: ACCU-CHEK COMFORT CURVE STRIP VI SCH ×4 (07:05→22:18)
[2022-01-09 08:00] VITALS: BP 122/69
[2022-01-09] MEDS: METOPROLOL TARTRATE 25 MG TAB PO SCH ×2 (10:17→22:17)
[2022-01-09] MEDS: FAMOTIDINE (10MG/ML) 2ML VL IV SCH (10:18)
[2022-01-09] MEDS: FUROSEMIDE 40 MG TAB PO SCH (10:18)
[2022-01-09] MEDS: LISINOPRIL 10 MG TAB PO SCH (10:18)
[2022-01-09] MEDS: ENOXAPARIN SOD 40 MG/0.4 ML SYRINGE SC SCH (10:18)
[2022-01-09] MEDS: oxyCODONE ER 20 MG TAB PO SCH ×2 (10:19→22:18)
[2022-01-09] MEDS: ASPirin 81 mg TAB PO SCH (10:30)
[2022-01-09 10:32] LABS: BUN/Creatinine Ratio 27.8; Calcium 8.4 mg/dL (8.5-10.1)
[2022-01-09 12:34] LABS: Urine Bacteria FEW /hpf (None Seen); Urine Blood Negative /uL (Negative); Urine Mucus FEW (None Seen); Urine WBC 1 /hpf (0 - 5)
[2022-01-09 13:00] VITALS: BP_SYST 122; BP_SYST 141; BP_DIAS 69; BP_DIAS 84
[2022-01-09 17:00] VITALS: BP 135/80
[2022-01-09 22:00] VITALS: BP 144/92
[2022-01-10 05:00] VITALS: BP 119/67
[2022-01-10] MEDS: HYDROmorphone HCL 2 MG/ML VL/or syr IV PRN ×6 (05:01→23:19)
[2022-01-10] MEDS: SODIUM CHLOR 0.9% PF (SALINE LOCK) 10ML VIAL/SYR IV SCH ×3 (05:35→21:37)
[2022-01-10] MEDS: ACCU-CHEK COMFORT CURVE STRIP VI SCH ×4 (06:35→21:37)
[2022-01-10] MEDS: InsuLIN REG 1unit/0.01ml Soln (100units/ml) SC SCH ×4 (06:37→21:40)
[2022-01-10 08:00] VITALS: BP 118/81
[2022-01-10 09:00] VITALS: BP 118/81
[2022-01-10 09:41] LABS: Anion Gap 7 (5-15); Blood Urea Nitrogen 19 mg/dL (7-18); Calcium 8.4 mg/dL (8.5-10.1); Carbon Dioxide 26 mmol/L (21-32); Chloride 105 mmol/L (98-107); GFR African American 102 mL/min; GFR Non-African American 84 mL/min; Glucose 189 mg/dL (74-106); Potassium 4.9 mmol/L (3.5-5.1); Sodium 138 mmol/L (136-145)
[2022-01-10] MEDS: ASPirin 81 mg TAB PO SCH (10:10)
[2022-01-10] MEDS: LISINOPRIL 10 MG TAB PO SCH (10:10)
[2022-01-10] MEDS: oxyCODONE ER 20 MG TAB PO SCH ×2 (10:11→21:35)
[2022-01-10] MEDS: ENOXAPARIN SOD 40 MG/0.4 ML SYRINGE SC SCH (10:11)
[2022-01-10] MEDS: METOPROLOL TARTRATE 25 MG TAB PO SCH ×2 (10:11→21:36)
[2022-01-10] MEDS: FAMOTIDINE (10MG/ML) 2ML VL IV SCH (10:11)
[2022-01-10] MEDS: FUROSEMIDE 40 MG TAB PO SCH (10:12)
[2022-01-10] MEDS: CIPROFLOXACIN HCL 500 MG TAB PO SCH ×2 (12:24→21:36)
[2022-01-10 13:00] VITALS: BP 137/89
[2022-01-10 16:34] VITALS: BP 141/74
[2022-01-10 22:00] VITALS: BP 137/82
[2022-01-11] MEDS: HYDROmorphone HCL 2 MG/ML VL/or syr IV PRN ×7 (04:09→23:45)
[2022-01-11 05:00] VITALS: BP 138/75
[2022-01-11] MEDS: SODIUM CHLOR 0.9% PF (SALINE LOCK) 10ML VIAL/SYR IV SCH ×3 (05:46→21:28)
[2022-01-11] MEDS: ACCU-CHEK COMFORT CURVE STRIP VI SCH ×4 (06:53→21:28)
[2022-01-11] MEDS: InsuLIN REG 1unit/0.01ml Soln (100units/ml) SC SCH ×4 (06:55→21:33)
[2022-01-11 09:00] VITALS: BP 119/59
[2022-01-11] MEDS: FAMOTIDINE (10MG/ML) 2ML VL IV SCH ×2 (09:33→14:50)
[2022-01-11] MEDS: LISINOPRIL 10 MG TAB PO SCH (09:34)
[2022-01-11] MEDS: METOPROLOL TARTRATE 25 MG TAB PO SCH ×2 (09:35→21:28)
[2022-01-11] MEDS: FUROSEMIDE 40 MG TAB PO SCH (09:35)
[2022-01-11] MEDS: CIPROFLOXACIN HCL 500 MG TAB PO SCH (09:35)
[2022-01-11] MEDS: oxyCODONE ER 20 MG TAB PO SCH ×2 (09:35→21:27)
[2022-01-11] MEDS: ASPirin 81 mg TAB PO SCH (09:35)
[2022-01-11] MEDS: ENOXAPARIN SOD 40 MG/0.4 ML SYRINGE SC SCH (09:36)
[2022-01-11] MEDS ORDERED: NITR-52 PO (10:30)
[2022-01-11 13:00] VITALS: BP 150/49
[2022-01-11] MEDS: NITROFURANTOIN 100 mg CAP PO SCH (21:27)
[2022-01-11 22:00] VITALS: BP 145/91
[2022-01-12] MEDS: HYDROmorphone HCL 2 MG/ML VL/or syr IV PRN ×2 (02:23→06:12)
[2022-01-12 05:00] VITALS: BP 148/93
[2022-01-12] MEDS: SODIUM CHLOR 0.9% PF (SALINE LOCK) 10ML VIAL/SYR IV SCH (06:13)
[2022-01-12] MEDS: ACCU-CHEK COMFORT CURVE STRIP VI SCH (06:13)
[2022-01-12] MEDS: InsuLIN REG 1unit/0.01ml Soln (100units/ml) SC SCH (06:14)
[2022-01-12 08:00] VITALS: BP 130/76
[2022-01-12 09:00] VITALS: BP 130/76
[2022-01-12] MEDS: ASPirin 81 mg TAB PO SCH (09:21)
[2022-01-12] MEDS: oxyCODONE ER 20 MG TAB PO SCH (09:22)
[2022-01-12] MEDS: NITROFURANTOIN 100 mg CAP PO SCH (09:22)
[2022-01-12] MEDS: FAMOTIDINE (10MG/ML) 2ML VL IV SCH (09:23)
[2022-01-12] MEDS: LISINOPRIL 10 MG TAB PO SCH (09:23)
[2022-01-12] MEDS: METOPROLOL TARTRATE 25 MG TAB PO SCH (09:23)
[2022-01-12] MEDS: ENOXAPARIN SOD 40 MG/0.4 ML SYRINGE SC SCH (09:28)
[2022-01-12] MEDS: FUROSEMIDE 40 MG TAB PO SCH (09:28)
[2022-01-12 09:36] VITALS: BP 130/76
== END 2022-01-12 10:00 | disposition home or self-care (01) | DRG 194 ==
LOC: ER 19:04 → TELE 22:12 → TELE-WESTW 01-06 16:27
PROVIDERS: ADMIT Nurse Practitioner Family; ATTEND Internal Medicine
DX: I11.0 Hypertensive heart disease with heart failure (principal); L89.150 Pressure ulcer of sacral region, unstageable; I50.33 Acute on chronic diastolic (congestive) heart failure; E11.65 Type 2 diabetes mellitus with hyperglycemia; S31.819A Unspecified open wound of right buttock, initial encounter; S31.829A Unspecified open wound of left buttock, initial encounter; G89.4 Chronic pain syndrome; E66.01 Morbid (severe) obesity due to excess calories; E78.5 Hyperlipidemia, unspecified; F17.200 Nicotine dependence, unspecified, uncomplicated; F41.9 Anxiety disorder, unspecified; Z20.822 Contact with and (suspected) exposure to COVID-19; J44.9 Chronic obstructive pulmonary disease, unspecified; N39.0 Urinary tract infection, site not specified; Z79.84 Long term (current) use of oral hypoglycemic drugs; Z88.6 Allergy status to analgesic agent; Z88.5 Allergy status to narcotic agent; Z88.0 Allergy status to penicillin; Z88.2 Allergy status to sulfonamides; Z88.8 Allergy status to other drugs, medicaments and biological substances; Z68.42 Body mass index [BMI] 45.0-49.9, adult; Z80.0 Family history of malignant neoplasm of digestive organs; Z82.49 Family history of ischemic heart disease and other diseases of the circulatory system; Z83.3 Family history of diabetes mellitus; Z86.16 Personal history of COVID-19; Z87.01 Personal history of pneumonia (recurrent); Z87.11 Personal history of peptic ulcer disease; Z87.442 Personal history of urinary calculi; Z90.49 Acquired absence of other specified parts of digestive tract
CPT/HCPCS: 36415; 71045; 80048; 80053; 81001; 82962; 83036; 83735; 83880; 84484; 85025; 85379; 85610; 85730; 87081; 87086; 87426; 93005; 93306; 96365; 96375; G0378; J1815; J2405; J3490

== ENCOUNTER 2022-02-06 10:46 | Emergency (ER) | payer MEDICAID ==
[~2022-02-06] VITALS: Ht 170.2 cm; Wt 140.0 kg
[~2022-02-06 10:46] MED LIST changes: -CLIN150C PO; +NITR-52 PO
[2022-02-06 10:50] VITALS: BP 135/95
[2022-02-06] MEDS ORDERED: ASPirin 325 MG TAB PO ONE (11:00)
[2022-02-06 11:15] LABS: Basophils # (auto) 0 10 ^3/uL (0-0.2); Basophils % (auto) 0.5 % (0.0-2.0); Eosinophils # (auto) 0.1 10 ^3/uL (0-0.8); Eosinophils % (auto) 1.5 % (0.0-7.0); Hematocrit 44.6 % (36.0-46.0); Hemoglobin 14.5 g/dL (12.2-16.2); Lymphocytes # (auto) 3.4 10 ^3/uL (0.4-5.4); Lymphocytes % (auto) 41.2 % (10.0-50.0); Mean Corpuscular Hemoglobin 28.1 pg (28.0-32.0); Mean Corpuscular Hgb Conc. 32.6 g/dL (32.0-36.0); Mean Corpuscular Volume 86.2 fL (80.0-100.0); Monocytes # (auto) 0.7 10 ^3/uL (0-1.3); Monocytes % (auto) 8.2 % (0.0-12.0); Neutrophils % (auto) 48.6 % (37.0-80.0); Nucleated Red Blood Cells % 0.1 %; Red Blood Cells 5.17 10^6/uL (4.0-5.20); Red Cell Distribution Width 14.7 % (11.8-14.3); White Blood Cell 8.2 10^3/uL (4.4-10.8)
[2022-02-06 11:27] LABS: Albumin 3.5 g/dL (3.4-5.0); BUN/Creatinine Ratio 17.6; Calcium 8.9 mg/dL (8.5-10.1)
[2022-02-06 11:30] LABS: Bilirubin, Total 0.4 mg/dL (0.2-1.0); Total Protein 6.8 g/dL (6.4-8.2)
[2022-02-06 11:36] LABS: Potassium 4.2 mmol/L (3.5-5.1)
[2022-02-06 13:12] LABS: Urine Bacteria FEW /hpf (None Seen); Urine Blood Negative /uL (Negative); Urine Mucus FEW (None Seen); Urine Specific Gravity 1.032 (1.001-1.035); Urine WBC 5 /hpf (0 - 5)
[2022-02-06] MEDS ORDERED: HYDROmorphone HCL 2 MG TAB PO ONE (15:00)
[2022-02-06] MEDS ORDERED: HYDROcodone-ACET 10/325MG TAB PO ONE (15:00)
[2022-02-06] MEDS ORDERED: levoFLOXacin 750MG 150 ML IV ONE (15:00)
[2022-02-06] MEDS ORDERED: LEVO-28 PO (15:10)
[2022-02-06] MEDS ORDERED: OXYCODONE W/ ACETAMINOPHEN 5/325MG TABLET PO ONE (17:00)
[2022-02-06] MEDS ORDERED: levoFLOXacin 250 MG TAB PO ONE (17:15)
== END 2022-02-06 17:21 | disposition home or self-care (01) ==
LOC: ER 10:46
DX: K42.9 Umbilical hernia without obstruction or gangrene (principal); L89.90 Pressure ulcer of unspecified site, unspecified stage; E11.65 Type 2 diabetes mellitus with hyperglycemia; I11.0 Hypertensive heart disease with heart failure; I50.9 Heart failure, unspecified; E78.5 Hyperlipidemia, unspecified; J44.9 Chronic obstructive pulmonary disease, unspecified; Z90.49 Acquired absence of other specified parts of digestive tract; Z87.891 Personal history of nicotine dependence; Z79.2 Long term (current) use of antibiotics; Z79.899 Other long term (current) drug therapy; Z88.0 Allergy status to penicillin; Z88.2 Allergy status to sulfonamides; Z88.5 Allergy status to narcotic agent; Z88.8 Allergy status to other drugs, medicaments and biological substances
CPT/HCPCS: 36415; 71045; 74176; 80053; 81001; 82962; 84484; 85025; 85379; 93005

== ENCOUNTER 2022-03-08 03:29 | Inpatient (IN) | payer MEDICAID ==
[~2022-03-08] VITALS: Ht 170.2 cm; Wt 137.0 kg
[~2022-03-08 03:29] MED LIST changes: +LEVO-28 PO
[2022-03-08] MEDS ORDERED: ONDANSETRON ODT 4 MG TAB PO ONE (03:45)
[2022-03-08] MEDS ORDERED: SODIUM CHLORIDE 0.9% 1,000 ML IV ONE (07:30)
[2022-03-08] MEDS ORDERED: ONDANSETRON HCL 4 MG/2 ML VIAL IV ONE (07:30)
[2022-03-08] MEDS ORDERED: HYDROmorphone HCL 2 MG/ML VL/or syr IV ONE (07:30)
[2022-03-08 07:57] LABS: Basophils # (auto) 0.1 10 ^3/uL (0-0.2); Basophils % (auto) 0.6 % (0.0-2.0); Eosinophils # (auto) 0.1 10 ^3/uL (0-0.8); Eosinophils % (auto) 1.2 % (0.0-7.0); Hematocrit 42.1 % (36.0-46.0); Hemoglobin 13.8 g/dL (12.2-16.2); Lymphocytes # (auto) 2.5 10 ^3/uL (0.4-5.4); Lymphocytes % (auto) 24.2 % (10.0-50.0); Mean Corpuscular Hemoglobin 27.7 pg (28.0-32.0); Mean Corpuscular Hgb Conc. 32.9 g/dL (32.0-36.0); Mean Corpuscular Volume 84.4 fL (80.0-100.0); Monocytes # (auto) 0.7 10 ^3/uL (0-1.3); Monocytes % (auto) 6.4 % (0.0-12.0); Neutrophils # (auto) 7.1 10 ^3/uL (1.6-8.6); Neutrophils % (auto) 67.6 % (37.0-80.0); Red Blood Cells 4.99 10^6/uL (4.0-5.20); Red Cell Distribution Width 14.4 % (11.8-14.3); White Blood Cell 10.5 10^3/uL (4.4-10.8)
[2022-03-08 08:16] LABS: Albumin 3.5 g/dL (3.4-5.0); Calcium 9.3 mg/dL (8.5-10.1); Potassium 4.1 mmol/L (3.5-5.1)
[2022-03-08 08:19] LABS: INR 0.93 (0.9-1.15); Partial Thromboplastin Time 25.5 sec (24.6-33.4)
[2022-03-08 09:01] LABS: Bilirubin, Total 0.3 mg/dL (0.2-1.0); Total Protein 6.9 g/dL (6.4-8.2)
[2022-03-08] MEDS ORDERED: VANCOMYCIN PER PHARMACY 0 MG IV SCH (11:15)
[2022-03-08] MEDS ORDERED: ONDANSETRON HCL 4 MG/2 ML VIAL IV PRN (11:15)
[2022-03-08] MEDS ORDERED: HYDROcodone-ACET 10/325MG TAB PO PRN (11:15)
[2022-03-08] MEDS ORDERED: DOCUSATE SOD 100 MG CAP PO PRN (11:15)
[2022-03-08] MEDS ORDERED: PANTOPRAZOLE 40 MG/10 ML VIAL INJ IV ONE (11:30)
[2022-03-08] MEDS ORDERED: VANCOMYCIN 1GM/250ML 250 ML IV ONE (11:30)
[2022-03-08] MEDS ORDERED: FUROSEMIDE 40 MG TAB PO PRN (11:30)
[2022-03-08] MEDS ORDERED: oxyCODONE HCL 5MG TAB PO PRN (11:45)
[2022-03-08] MEDS: METOPROLOL SUCCINATE XL 50 MG TAB PO SCH (13:50)
[2022-03-08] MEDS: VANCOMYCIN 1GM/250ML 250 ML IV SCH (20:00)
[2022-03-08 20:58] VITALS: BP 148/94
[2022-03-08] MEDS ORDERED: HYDR12.56 PO (21:29)
[2022-03-08 22:00] VITALS: BP 148/94
[2022-03-08] MEDS: ATORVASTATIN 20 MG TAB PO SCH (22:03)
[2022-03-08] MEDS: oxyCODONE HCL 5MG TAB PO PRN (22:04)
[2022-03-09] VITALS (8 sets, daily range): BP systolic 125–152; BP diastolic 72–94
[2022-03-09] MEDS: oxyCODONE HCL 5MG TAB PO PRN ×5 (03:02→23:33)
[2022-03-09] MEDS: VANCOMYCIN 1GM/250ML 250 ML IV SCH ×2 (06:09→17:39)
[2022-03-09] MEDS: NIFEdipine ER 30 MG TAB PO SCH (09:28)
[2022-03-09] MEDS: LISINOPRIL 20 MG TAB PO SCH (09:29)
[2022-03-09] MEDS: METOPROLOL SUCCINATE XL 50 MG TAB PO SCH (09:30)
[2022-03-09] MEDS ORDERED: ENOXAPARIN SOD 40 MG/0.4 ML SYRINGE SC SCH (10:00)
[2022-03-09] MEDS: NICOTINE 21MG/24 HR TOPICAL PATCH TD SCH (10:00)
[2022-03-09 10:11] LABS: Urine Bacteria MANY /hpf (None Seen); Urine Blood Negative /uL (Negative); Urine Mucus FEW (None Seen); Urine Specific Gravity 1.018 (1.001-1.035); Urine WBC <1 /hpf (0 - 5)
[2022-03-09] MEDS ORDERED: HYDROmorphone HCL 2 MG/ML VL/or syr IV PRN (10:30)
[2022-03-09 16:58] LABS: Hematocrit 41.1 % (36.0-46.0); Hemoglobin 13.3 g/dL (12.2-16.2); Mean Corpuscular Hemoglobin 27.7 pg (28.0-32.0); Mean Corpuscular Hgb Conc. 32.4 g/dL (32.0-36.0); Mean Corpuscular Volume 85.4 fL (80.0-100.0); Red Blood Cells 4.81 10^6/uL (4.0-5.20); Red Cell Distribution Width 14.7 % (11.8-14.3)
[2022-03-09 17:03] LABS: Basophils % (manual) 0 (0.0-2.0); Metamyelocytes % 0; Myelocytes % 0
[2022-03-09 17:04] LABS: Blast Cells 0; Promyelocytes % 0; Reactive Lymphocytes 0
[2022-03-09 17:14] LABS: Anion Gap 9 (5-15); BUN/Creatinine Ratio 23.3; Blood Urea Nitrogen 20 mg/dL (7-18); Calcium 8.4 mg/dL (8.5-10.1); Carbon Dioxide 25 mmol/L (21-32); Chloride 104 mmol/L (98-107); GFR African American 88 mL/min; GFR Non-African American 73 mL/min; Glucose 92 mg/dL (74-106); Potassium 4.4 mmol/L (3.5-5.1); Sodium 138 mmol/L (136-145)
[2022-03-09 17:17] LABS: Alanine Aminotransferase 20 U/L (13-56); Alkaline Phosphatase 76 U/L (45-117); Aspartate Aminotransferase 16 U/L (15-37); Bilirubin, Total 0.3 mg/dL (0.2-1.0); Total Protein 6.6 g/dL (6.4-8.2)
[2022-03-09 17:26] LABS: Band Neutrophils % (manual) 8; Eosinophils % (manual) 2 (0-7); Lymphocytes % (manual) 34 (10.0-50.0); Monocytes % (manual) 4 (0-12)
[2022-03-09] MEDS: ENOXAPARIN SOD 40 MG/0.4 ML SYRINGE SC SCH (21:38)
[2022-03-09] MEDS: ATORVASTATIN 20 MG TAB PO SCH ×2 (21:38→22:00)
[2022-03-09] MEDS: HYDROmorphone HCL 2 MG/ML VL/or syr IV PRN (21:39)
[2022-03-09] MEDS: DOXYCYCLINE 100MG/250ML 250 ML IV SCH ×2 (21:44→21:47)
[2022-03-09] MEDS: NYSTATIN TOPICAL POWDER 15GM TOP SCH (22:00)
[2022-03-10] MEDS: VANCOMYCIN 1GM/250ML 250 ML IV SCH ×3 (02:22→19:09)
[2022-03-10] MEDS: oxyCODONE HCL 5MG TAB PO PRN ×5 (04:53→23:37)
[2022-03-10 05:00] VITALS: BP 146/108
[2022-03-10 08:00] VITALS: BP 142/72
[2022-03-10 08:43] VITALS: BP 153/74
[2022-03-10] MEDS: NYSTATIN TOPICAL POWDER 15GM TOP SCH ×2 (09:28→23:46)
[2022-03-10] MEDS: LISINOPRIL 20 MG TAB PO SCH (09:29)
[2022-03-10] MEDS: NIFEdipine ER 30 MG TAB PO SCH (09:30)
[2022-03-10] MEDS: HYDROmorphone HCL 2 MG/ML VL/or syr IV PRN ×2 (09:31→21:01)
[2022-03-10] MEDS: NICOTINE 21MG/24 HR TOPICAL PATCH TD SCH (09:31)
[2022-03-10] MEDS: METOPROLOL SUCCINATE XL 50 MG TAB PO SCH (09:32)
[2022-03-10] MEDS: ENOXAPARIN SOD 40 MG/0.4 ML SYRINGE SC SCH ×2 (09:33→21:00)
[2022-03-10] MEDS: DOXYCYCLINE 100MG/250ML 250 ML IV SCH ×2 (10:30→23:46)
[2022-03-10] MEDS: IPRATROPIUM BROM 0.5 MG/2.5ML INH SOL NEB PRN ×2 (10:58→22:54)
[2022-03-10] MEDS: ALBUTEROL SULF 2.5 MG/0.5ML(0.5%) NEB SOLN NEB PRN ×2 (10:58→22:54)
[2022-03-10 12:30] VITALS: BP 132/91
[2022-03-10 17:08] VITALS: BP 150/90
[2022-03-10] MEDS: ATORVASTATIN 20 MG TAB PO SCH (21:00)
[2022-03-10 22:00] VITALS: BP 102/77
[2022-03-11 01:24] LABS: Basophils # (auto) 0.1 10 ^3/uL (0-0.2); Basophils % (auto) 0.6 % (0.0-2.0); Eosinophils # (auto) 0.3 10 ^3/uL (0-0.8); Hematocrit 39.9 % (36.0-46.0); Hemoglobin 12.6 g/dL (12.2-16.2); Lymphocytes # (auto) 3.3 10 ^3/uL (0.4-5.4); Lymphocytes % (auto) 25.3 % (10.0-50.0); Mean Corpuscular Hgb Conc. 31.7 g/dL (32.0-36.0); Mean Corpuscular Volume 85.2 fL (80.0-100.0); Monocytes # (auto) 0.9 10 ^3/uL (0-1.3); Monocytes % (auto) 7.1 % (0.0-12.0); Neutrophils # (auto) 8.5 10 ^3/uL (1.6-8.6); Nucleated Red Blood Cells % 0.1 %; Red Blood Cells 4.68 10^6/uL (4.0-5.20); White Blood Cell 13.1 10^3/uL (4.4-10.8)
[2022-03-11 01:38] LABS: BUN/Creatinine Ratio 21.8; Calcium 8.6 mg/dL (8.5-10.1); Potassium 3.5 mmol/L (3.5-5.1)
[2022-03-11] MEDS: VANCOMYCIN 1GM/250ML 250 ML IV SCH ×3 (02:21→18:22)
[2022-03-11] MEDS: oxyCODONE HCL 5MG TAB PO PRN ×4 (03:49→22:37)
[2022-03-11 05:00] VITALS: BP 133/78
[2022-03-11 08:30] VITALS: BP 136/77
[2022-03-11] MEDS: NIFEdipine ER 30 MG TAB PO SCH (09:43)
[2022-03-11] MEDS: ENOXAPARIN SOD 40 MG/0.4 ML SYRINGE SC SCH ×2 (09:44→22:01)
[2022-03-11] MEDS: METOPROLOL SUCCINATE XL 50 MG TAB PO SCH (09:44)
[2022-03-11] MEDS: LISINOPRIL 20 MG TAB PO SCH (09:44)
[2022-03-11] MEDS: NYSTATIN TOPICAL POWDER 15GM TOP SCH ×3 (09:45→22:02)
[2022-03-11] MEDS: NICOTINE 21MG/24 HR TOPICAL PATCH TD SCH (09:45)
[2022-03-11] MEDS: HYDROmorphone HCL 2 MG/ML VL/or syr IV PRN ×2 (09:46→21:02)
[2022-03-11] MEDS: DOXYCYCLINE 100MG/250ML 250 ML IV SCH (11:13)
[2022-03-11 12:50] VITALS: BP 144/78
[2022-03-11 16:36] VITALS: BP 120/87
[2022-03-11 22:00] VITALS: BP 131/85
[2022-03-11] MEDS: ATORVASTATIN 20 MG TAB PO SCH (22:01)
[2022-03-11] MEDS: DOXYCYCLINE 100 MG TAB/CAP PO SCH (22:01)
[2022-03-11 23:46] VITALS: BP 131/85
[2022-03-12] MEDS: VANCOMYCIN 1GM/250ML 250 ML IV SCH (02:30)
[2022-03-12] MEDS: oxyCODONE HCL 5MG TAB PO PRN ×3 (04:11→12:38)
[2022-03-12 05:00] VITALS: BP 116/75
[2022-03-12 09:12] VITALS: BP 111/94
[2022-03-12] MEDS: NICOTINE 21MG/24 HR TOPICAL PATCH TD SCH (10:00)
[2022-03-12] MEDS: HYDROmorphone HCL 2 MG/ML VL/or syr IV PRN (10:04)
[2022-03-12] MEDS: METOPROLOL SUCCINATE XL 50 MG TAB PO SCH (10:50)
[2022-03-12] MEDS: NIFEdipine ER 30 MG TAB PO SCH (10:50)
[2022-03-12] MEDS: DOXYCYCLINE 100 MG TAB/CAP PO SCH (10:50)
[2022-03-12] MEDS: NYSTATIN TOPICAL POWDER 15GM TOP SCH (10:51)
[2022-03-12] MEDS: LISINOPRIL 20 MG TAB PO SCH (10:51)
[2022-03-12] MEDS: ENOXAPARIN SOD 40 MG/0.4 ML SYRINGE SC SCH (10:51)
[2022-03-12 12:32] VITALS: BP 135/84
[2022-03-12] MEDS ORDERED: DOXY-286 PO (13:39)
[2022-03-12 14:56] VITALS: BP 135/84
== END 2022-03-12 15:55 | disposition home health service (06) | DRG 383 ==
LOC: ER 03:29 → OVERFLOW 11:19 → EAST 20:37
PROVIDERS: ADMIT Nurse Practitioner Family; ATTEND Hospitalist
PROC: 05HB33Z Insertion of Infusion Device into Right Basilic Vein, Percutaneous Approach (ICD-10-PCS; principal; 2022-03-08)
PROC: B54MZZA Ultrasonography of Right Upper Extremity Veins, Guidance (ICD-10-PCS; 2022-03-08)
DX: L03.317 Cellulitis of buttock (principal); L89.154 Pressure ulcer of sacral region, stage 4; I11.0 Hypertensive heart disease with heart failure; L89.149 Pressure ulcer of left lower back, unspecified stage; I50.9 Heart failure, unspecified; E66.01 Morbid (severe) obesity due to excess calories; E11.9 Type 2 diabetes mellitus without complications; E78.5 Hyperlipidemia, unspecified; F17.200 Nicotine dependence, unspecified, uncomplicated; J44.9 Chronic obstructive pulmonary disease, unspecified; K27.9 Peptic ulcer, site unspecified, unspecified as acute or chronic, without hemorrhage or perforation; N39.0 Urinary tract infection, site not specified; G89.4 Chronic pain syndrome; Z20.822 Contact with and (suspected) exposure to COVID-19; Z88.6 Allergy status to analgesic agent; Z88.2 Allergy status to sulfonamides; Z88.5 Allergy status to narcotic agent; Z88.8 Allergy status to other drugs, medicaments and biological substances; Z90.49 Acquired absence of other specified parts of digestive tract; Z88.0 Allergy status to penicillin; Z87.442 Personal history of urinary calculi; Z83.3 Family history of diabetes mellitus; Z82.49 Family history of ischemic heart disease and other diseases of the circulatory system; Z80.0 Family history of malignant neoplasm of digestive organs; Z74.01 Bed confinement status; Z68.42 Body mass index [BMI] 45.0-49.9, adult
CPT/HCPCS: 36415; 71045; 74176; 76881; 80048; 80053; 80202; 81001; 84484; 85007; 85025; 85027; 85610; 85730; 87426; 94640; 96361; 96365; 96375; C9113; G0378; J2405; J3490; Q0162

== ENCOUNTER 2022-04-01 08:03 | Emergency (ER) | payer MEDICAID ==
[~2022-04-01] VITALS: Ht 170.2 cm; Wt 133.0 kg
[~2022-04-01 08:03] MED LIST changes: +DOXY-286 PO; +HYDR12.56 PO; -LEVO-28 PO
[2022-04-01 08:37] LABS: Basophils # (auto) 0.1 10 ^3/uL (0-0.2); Eosinophils # (auto) 0.1 10 ^3/uL (0-0.8); Eosinophils % (auto) 0.9 % (0.0-7.0); Hematocrit 44.9 % (36.0-46.0); Hemoglobin 15.3 g/dL (12.2-16.2); Lymphocytes # (auto) 2.5 10 ^3/uL (0.4-5.4); Mean Corpuscular Hemoglobin 28.5 pg (28.0-32.0); Mean Corpuscular Hgb Conc. 34.1 g/dL (32.0-36.0); Mean Corpuscular Volume 83.6 fL (80.0-100.0); Monocytes # (auto) 0.5 10 ^3/uL (0-1.3); Monocytes % (auto) 4.3 % (0.0-12.0); Neutrophils # (auto) 8.6 10 ^3/uL (1.6-8.6); Neutrophils % (auto) 72.8 % (37.0-80.0); Nucleated Red Blood Cells % 0.2 %; Red Blood Cells 5.37 10^6/uL (4.0-5.20); Red Cell Distribution Width 14.6 % (11.8-14.3); White Blood Cell 11.8 10^3/uL (4.4-10.8)
[2022-04-01 08:50] LABS: Calcium 9.3 mg/dL (8.5-10.1); Potassium 4.1 mmol/L (3.5-5.1)
[2022-04-01 08:53] LABS: Bilirubin, Total 0.5 mg/dL (0.2-1.0); Total Protein 7.2 g/dL (6.4-8.2)
[2022-04-01 09:26] LABS: Urine Bacteria MOD /hpf (None Seen); Urine Blood Negative /uL (Negative); Urine WBC 1 /hpf (0 - 5)
[2022-04-01] MEDS ORDERED: hydrALAZINE HCL 20 MG/ML VL IV ONE (09:45)
[2022-04-01] MEDS ORDERED: MORPHINE SULFATE INJ 2 MG/ml SYRG IV ONE (10:00)
[2022-04-01] MEDS ORDERED: ONDANSETRON HCL 4 MG/2 ML VIAL IV ONE ×3 (10:00→11:45)
[2022-04-01] MEDS ORDERED: LABETALOL HCL 5 MG/ML 4ML SYRINGE IV ONE (11:15)
[2022-04-01 12:28] VITALS: BP 143/109
== END 2022-04-01 12:33 | disposition home or self-care (01) ==
LOC: ER 08:03
DX: R07.89 Other chest pain (principal); R11.2 Nausea with vomiting, unspecified; I16.0 Hypertensive urgency; I11.0 Hypertensive heart disease with heart failure; I50.9 Heart failure, unspecified; J44.9 Chronic obstructive pulmonary disease, unspecified; E11.9 Type 2 diabetes mellitus without complications; F17.210 Nicotine dependence, cigarettes, uncomplicated; Z90.49 Acquired absence of other specified parts of digestive tract; Z88.0 Allergy status to penicillin; Z88.1 Allergy status to other antibiotic agents; Z88.2 Allergy status to sulfonamides; Z88.6 Allergy status to analgesic agent; Z88.8 Allergy status to other drugs, medicaments and biological substances; Z87.442 Personal history of urinary calculi
CPT/HCPCS: 36415; 71045; 80053; 81001; 83880; 84484; 85025; 85379; 93005; 96374; 96375; 96376; 99285; J0360; J2270; J2405

== ENCOUNTER 2022-05-13 10:38 | Emergency (ER) | payer MEDICAID ==
[~2022-05-13] VITALS: Ht 170.2 cm; Wt 133.0 kg
[2022-05-13 12:29] VITALS: BP 136/58
== END 2022-05-13 14:01 | disposition left against medical advice (07) ==
LOC: ER 10:38
DX: S63.612A Unspecified sprain of right middle finger, initial encounter (principal); I11.0 Hypertensive heart disease with heart failure; I50.9 Heart failure, unspecified; J44.9 Chronic obstructive pulmonary disease, unspecified; E11.9 Type 2 diabetes mellitus without complications; E78.5 Hyperlipidemia, unspecified; F17.210 Nicotine dependence, cigarettes, uncomplicated; Z90.49 Acquired absence of other specified parts of digestive tract; Z88.0 Allergy status to penicillin; Z88.6 Allergy status to analgesic agent; Z88.8 Allergy status to other drugs, medicaments and biological substances; Z87.442 Personal history of urinary calculi; X58.XXXA Exposure to other specified factors, initial encounter; Y93.89 Activity, other specified; Y92.89 Other specified places as the place of occurrence of the external cause; Y99.8 Other external cause status
CPT/HCPCS: 73130

== ENCOUNTER 2024-12-26 08:15 | Inpatient (IN) | payer MEDICAID ==
[~2024-12-26] VITALS: Ht 167.6 cm; Wt 105.3 kg
[~2024-12-26 08:15] MED LIST changes: -HYDR12.56 PO; +HYDR12.59 PO; -LISI40TA11 PO; +LISI40TA16 PO; +PROM25TA10 PO; -PROM25TA5 PO
--- NOTE | 2024-12-26 08:27 | ED.PDOC ---
GI ASSESSMENT HPI Comments 59 y/o F, with PMHx of anxiety, CHF, COPD, DM, HLD, HTN, PE's, kideny stones, and depression presents to the ED for CC of nausea/vomiting. Patient states, she has been experiencing symptoms of nausea/vomiting/diarrhea with associated "burning" abdominal pain [id number]. Patient reports, being seen at Urgent Care for SS and given medications which have no alleviated symptoms. Patient endorses, symptoms now worsening with new onset right-arm tingling and chest pain. Patient denies dysuria, hematuria, palpitations, hematemesis, or hematochezia. No other symptoms or modifying factors are present at this time. Chief Complaint: Nausea/Vomiting Time Seen by MD: 08:30 Primary Care Provider: KYLER Reviewed Notes: Nurses Notes, Medications, Allergies Allergies: Coded Allergies: Morphine (Verified Allergy, Intermediate, 08/17/17) Codeine (Verified Allergy, Unknown, 07/10/20) Haloperidol (Verified Allergy, Unknown, 07/27/21) Ketorolac Tromethamine (Verified Allergy, Unknown, 08/17/17) Metronidazole (Unverified Allergy, Unknown, ANXIETY/SOB, 12/10/19) Penicillins (Verified Allergy, Unknown, 08/17/17) Prochlorperazine (Verified Allergy, Unknown, 08/17/17) Saccharin (Verified Allergy, Unknown, 08/17/17) Sulfa Antibiotics (Verified Allergy, Unknown, 04/19/20) Valproic Acid (Verified Allergy, Unknown, 08/17/17) Home Meds Active Scripts Doxycycline Hyclate (DOXYCYCLINE HYCLATE) 100 Mg Tab, 1 TAB PO BID, #10 TAB Prov:MED CROSS MD 03/12/22 Nitrofurantoin (Nitrofurantoin) 100 Mg Cap, 1 CAP PO BID for 3 Days, #6 CAP Prov:LISA GRACE MD 01/11/22 Probiotic Product (PROBIOTIC COMPLEX/ACIDOPH) Acidophi Cap, 1 CAP OR DAILY, #14 CAP Prov:MED CROSS MD 11/07/21 Furosemide (Lasix) 40 Mg Tab, 40 MG PO DAILY PRN, #30 TAB as needed for leg edema Prov:SWAPNA CHAVEZ MD 10/12/20 Reported Medications Hydrochlorothiazide (Hydrochlorothiazide) 12.5 Mg Cap, PO DAILY, #30 CAP 5 Refills 03/08/22 Metoprolol Tartrate (LOPRESSOR TABLET) 50 Mg Tb, 25 MG PO DAILY 10/12/20 Promethazine Hcl (Promethazine Hcl) 25 Mg Tab, 1 TAB PO TID 10/12/20 Oxycodone Hcl (Roxicodone) 15 Mg Tab, 15 MG PO QID, TAB 10/12/20 Nifedipine (Nifedipine ER) 30 Mg Tab, 30 MG PO DAILY, TAB 10/12/20 Lisinopril (Lisinopril) 40 Mg Tab, 1 TAB PO DAILY, #30 TAB 5 Refills 10/12/20 Alprazolam (Alprazolam) 1 Mg Tab, 1 TAB PO BIDPRN PRN for ANXIETY 04/25/20 Metformin Hydrochloride (Metformin Hcl) 500 Mg Tab, 1 TAB PO BID 04/25/20 Information Source: Patient Mode of Arrival: Ambulatory Timing: Weeks Duration: Since onset Vomitus: Watery Stool: Watery Severity: Moderate Recent: None Recent Hx of: None Pain Location: Diffuse Modifying Factors: Nothing Associated sign and symptoms: Nausea, Vomiting, Diarrhea, Abdominal Pain Past Medical History PAST MEDICAL HISTORY: Anxiety, CHF, COPD, Depression, DM, High Lipids, HTN, Kidney Stones, PUD, UTI'S Surgical History: Cholecystectomy, , Hernia Repair [employer] History: No Pertinent [employer]ANT History Family History Family History: Reviewed,noncontributory to illness, Family hx of heart lorena, Family hx of HTN Social History Smoker: Cigarettes Alcohol: Denies ETOH Use Drugs: Denies Drug Use Lives In: Home Constitutional: denies: chills, diaphoresis, fatigue, fever, malaise, sweats, weakness, others EENTM: denies: blurred vision, double vision, ear bleeding, ear discharge, ear drainage, ear pain, ear ringing, eye pain, eye redness, hearing loss, mouth pain, mouth swelling, nasal discharge, nose bleeding, nose congestion, nose pain, photophobia, tearing, throat pain, throat swelling, voice changes, others Respiratory: denies: cough, hemoptysis, orthopnea, SOB at rest, shortness of breath, SOB with excertion, stridor, wheezing, others Cardiovascular: reports: chest pain; denies: dizzy spells, diaphoresis, Dyspnea on exertion, edema, irregular heart beat, left arm pain, lightheadedness, palpitations, PND, syncope, others Gastrointestinal: reports: abdominal pain, diarrhea, nausea, vomiting; denies: abdomen distended, blood streaked bowels, constipated, dysphagia, difficulty swallowing, hematemesis, melena, poor appetite, poor fluid intake, rectal bleeding, rectal pain, others Genitourinary: denies: abnormal vagina bleeding, burning, dyspareunia, dysuria, flank pain, frequency, hematuria, incontinence, pain, , vagina discharge, urgency, others Neurological: denies: dizziness, fainting, headache, left sided numbness, left sided weakness, numbness, paresthesia, pre-existing deficit, right sided numbness, right sided weakness, seizure, speech problems, tingling, tremors, weakness, others Musculoskeletal: denies: back pain, gout, joint pain, joint swelling, muscle pain, muscle stiffness, neck pain, others Integumetry: denies: bruises, change in color, change in hair/nails, dryness, laceration, lesions, lumps, rash, wounds, others Allergic/Immunocompromised: denies: Difficulty Healing, Frequent Infections, Hives, Itching, others Hematologic/Lymphatic: denies: anemia, blood clots, easy bleeding, easy bruising, swollen glands, others Endocrine: denies: excessive hunger, excessive sweating, excessive thirst, excessive urination, flushing, intolerance to cold, intolerance to heat, unexplained weight gain, unexplained weight loss, others Psychiatric: denies: anxiety, bipolar disorder, depression, hopeless, panic disorder, schizophrenia, sleepless, suicidal, others All Other Systems: Reviewed and Negative Physical Exam General Appearance: Moderate Distress HEENT: Normal ENT Inspection, Pharynx Normal, TMs Normal Neck: Full Range of Motion, Non-Tender, Normal, Normal Inspection Respiratory: Chest Non-Tender, Lungs Clear, No Accessory Muscle Use, No Respiratory Distress, Normal Breath Sounds Cardiovascular: No Edema, No JVD, No Murmur, No Gallop, Normal Peripheral Pulses, Regular Rate/Rhythm Breast Exam: Deferred Gastrointestinal: Diffuse, No Organomegaly, No Pulsatile Mass, Normal Bowel Sounds, Soft, Tenderness Genitalia: Deferred Pelvic: Deferred Rectal: Deferred Extremities: No calf tenderness, Normal capillary refill, Normal inspection, Normal range of motion, Non-tender, No pedal edema Musculoskeletal : Apperance: Normal Neurologic: Alert, debt collector II-XII nml as Tested, No Motor Deficits, Normal Affect, Normal Mood, No Sensory Deficits Cerebellar Function: Normal Reflexes: Normal Skin: Dry, Normal Color, Warm Lymphatic: No Adenopathy EKG EKG : Pulse Rate (adult): 82 [place]: LAD Cardiac Rhythm: NSR Block: None Hypertrophy: None ST: Normal Was a procedure done? Was a procedure done?: No GI differential Dx Differential Diagnosis: Cholangitis, Gastritis/PUD, Gastroenteritis, Inflammatory BD, Electrolyte Imbalance, Bacterial, Viral X-Ray, Labs, Meds, VS Vital Signs Date Time Temp Pulse Resp B/P (MAP) Pulse Ox O2 Delivery O2 Flow Rate FiO2 12/26/24 12:24 84 12 123/78 12/26/24 11:27 Room Air* 0 21 12/26/24 10:52 71 19 145/84 12/26/24 09:47 73 18 98 Room Air 12/26/24 09:47 98.3 73 18 144/83 (103) 98 98.3 12/26/24 08:40 82 12/26/24 08:29 82 12/26/24 08:21 98.0 103 20 147/84 99 98.0 Lab Test 12/26/24 11:35 12/26/24 11:03 12/26/24 10:29 12/26/24 09:36 Range/Units Lactic Acid Level 1.7 2.5 *H 0.4-2.0 mmol/L Urine Color Yellow Yellow Urine Clarity Clear Clear Urine pH 8.5 5.0-9.0 Urine Specific [place] 1.017 1.001-1.035 Urine Protein Trace H Negative Urine Ketones Negative Negative Urine Blood Negative Negative /uL Urine Nitrite Negative Negative Urine Bilirubin Negative Negative Urine Urobilinogen Normal Negative mg/dL Urine Leukocyte Esterase Negative Negative /uL Urine RBC 3 0 - 4 /hpf Urine Microscopic WBC 2 0-5 /HPF Urine Squamous Epithelial Cells Few <5 /hpf Urine Bacteria Mod H None Seen /hpf Urine Glucose Normal Normal mg/dL Urine Opiates Screen Pending Urine Fentanyl Screen Pending Urine Barbiturates Screen Pending Urine Phencyclidine Screen Pending Urine Amphetamines Screen Pending Urine Benzodiazepines Screen Pending Urine Cocaine Screen Pending Urine Cannabinoids Screen Pending Troponin I High Sensitivity 5 6 </=34 ng/L White Blood Count 13.1 H 4.4-10.8 10^3/uL Red Blood Count 5.07 4.0-5.20 10^6/uL Hemoglobin 14.9 12.2-16.2 g/dL Hematocrit 43.1 36.0-46.0 % Mean Corpuscular Volume 85.0 80.0-100.0 fL Mean Corpuscular Hemoglobin 29.5 28.0-32.0 pg Mean Corpuscular Hemoglobin Concent 34.7 32.0-36.0 g/dL Red Cell Distribution Width 13.2 11.8-14.3 % Platelet Count 374 140-450 10^3/uL Mean Platelet Volume 7.9 6.9-10.8 fL Neutrophils (%) (Auto) 83.8 H 37.0-80.0 % Lymphocytes (%) (Auto) 12.8 10.0-50.0 % Monocytes (%) (Auto) 2.8 0.0-12.0 % Eosinophils (%) (Auto) 0.1 0.0-7.0 % Basophils (%) (Auto) 0.5 0.0-2.0 % Neutrophils # (Auto) 10.9 H 1.6-8.6 10 ^3/uL Lymphocytes # (Auto) 1.7 0.4-5.4 10 ^3/uL Monocytes # (Auto) 0.4 0-1.3 10 ^3/uL Eosinophils # (Auto) 0 0-0.8 10 ^3/uL Basophils # (Auto) 0.1 0-0.2 10 ^3/uL Nucleated Red Blood Cells 0.1 % Sodium Level 146 H 136-145 mmol/L Potassium Level 4.0 3.5-5.1 mmol/L Chloride Level 110 H 98-107 mmol/L Carbon Dioxide Level 24 20-31 mmol/L Anion Gap 12 5-15 Blood Urea Nitrogen 10 9-23 mg/dL Creatinine 0.86 0.550-1.02 mg/dL Glomerular Filtration Rate Calc 79 >90 mL/min BUN/Creatinine Ratio 11.6 10.0-20.0 Serum Glucose 113 H 74-106 mg/dL Calcium Level 10.1 8.7-10.4 mg/dL Test 12/26/24 08:32 Range/Units POC Glucose 122 H 70-106 mg/dl Current Medications Medications (Trade) Dose Ordered Sig/Volodymyr Route Start Time Stop Time Status Last Admin Ondansetron HCl (Zofran) 4 mg ONCE ONCE IV 12/26/24 08:45 12/26/24 08:46 DC 12/26/24 09:33 Sodium Chloride 500 ml @ 500 mls/hr Q1H ONCE IVB 12/26/24 08:45 12/26/24 09:44 DC 12/26/24 09:23 Pantoprazole Sodium (Protonix) 40 mg ONCE ONCE IV 12/26/24 10:30 12/26/24 10:31 DC 12/26/24 10:45 Hydromorphone HCl (Dilaudid Injection) 1 mg ONCE ONCE IV 12/26/24 10:45 12/26/24 10:46 DC 12/26/24 10:52 CT ABD PEL: IMPRESSION: 1. Hepatic steatosis and hepatomegaly. 2. Scattered small colonic diverticula without adjacent inflammatory changes to suggest diverticulitis. 3. Nonspecific nondilated fluid-filled small bowel loops. Findings may be seen with ileus or enteritis in the appropriate clinical setting. No small bowel obstruction. 4. Small left adrenal nodule most consistent with a benign lipid rich adenoma. 5. Small exophytic low-attenuation lesion at the midpole of the left kidney is likely a small cyst, but too small to characterize. 6. Small to moderate-sized fat containing umbilical hernia. The patient had an IV Hep-Lock established. The patient was given Zofran 4 mg IV push The patient was given a bolus of normal saline at 500 cc bolus. The patient was given now Dilaudid 1 mg IV push for the pain The patient did have mild relief. The patient's CBC shows an elevated white blood cell count of 13.1 The rest of the CBC and chemistry panel are within normal limits. The CAT scan of the abdomen and pelvis shows: IMPRESSION: 1. Hepatic steatosis and hepatomegaly. 2. Scattered small colonic diverticula without adjacent inflammatory changes to suggest diverticulitis. 3. Nonspecific nondilated fluid-filled small bowel loops. Findings may be seen with ileus or enteritis in the appropriate clinical setting. No small bowel obstruction. 4. Small left adrenal nodule most consistent with a benign lipid rich adenoma. 5. Small exophytic low-attenuation lesion at the midpole of the left kidney is likely a small cyst, but too small to characterize. 6. Small to moderate-sized fat containing umbilical hernia. At this time, the patient is being admitted to the hospitalist Images Reviewed?: Images reviewed and evaluated by me Time of 1ST Reevaluation: 09:00 Reevaluation 1ST: Unchanged Patient Education/Counseling: Diagnosis, Treatment, Prognosis Family Education/Counseling: No Family Present SEPSIS Sepsis Screen Physician Orders Ct Ab Pel Wo Con-No Oral Or Iv (12/26/24 08:40) Heplock Iv (12/26/24 08:40) Bench Carpenter (12/26/24 08:40) Blood Pressure (12/26/24 08:40) Pulse Oximetry (12/26/24 08:40) Troponin-I Hs (12/26/24 11:40) Electrocardigram (12/26/24 09:19) Admit (12/26/24 12:04) Allergies (12/26/24 12:04) Code Status (12/26/24 12:04) Sodium Chloride Lock (Saline Lock Ns) (12/26/24 14:00) Sodium Chloride 0.9% (12/26/24 12:15) Hydrocodone-Acet 5/325mg Tab ([place] 5/32 (12/26/24 12:15) Complete Blood Count (12/27/24 04:00) Comprehensive Metabolic Panel (12/27/24 04:00) Condition: Fair (12/26/24 12:04) Acetaminophen Tablet (Tylenol Tablet) (12/26/24 12:15) Clear Liq Diet (12/26/24 Lunch) Nitroglycerin Sublingual (Ntrostat Subli (12/26/24 12:15) Morphine Sulfate Injection (12/26/24 12:15) Oxygen By Nasal Cannula (12/26/24 12:04) Stat Ekg For Chest Pain (12/26/24 12:04) Notify Md Of Changes From Base (12/26/24 12:04) Email Campaign Specialist For 24 Hours (12/26/24 12:04) Emergency Dysrhythmia Protocol (12/26/24 12:04) Rhythm Strips Once Every Shift (12/26/24 12:04) Metoclopramide Injection (Reglan Injecti (12/26/24 12:15) Pantoprazole (Protonix) (12/27/24 10:00) Ceftriaxone 1gm/50ml (Rocephin) (12/26/24 12:15) Ceftriaxone 1gm/50ml (Rocephin) (12/27/24 09:00) B-Type Natriuretic Peptide (12/26/24 12:04) Magnesium (12/26/24 12:04) PTPTT (12/26/24 12:04) Hepatic Panel (12/26/24 12:04) Drug Screen (12/26/24 12:04) Stool Bacterial Culture (12/26/24 12:04) Stool Wbc (12/26/24 12:04) Clostridium Difficile Toxin (12/26/24 12:04) Urine Bacterial Culture (12/26/24 12:04) Blood Culture (12/26/24 12:04) Metoprolol Tartrate Tablet (Lopressor Ta (12/27/24 10:00) (Nf) Lisinopril (12/27/24 10:00) Apixaban (Eliquis) (12/26/24 12:15) Nicotine 14mg/24hr (Nicoderm 14mg/24hr) (12/27/24 10:00) Vital Signs Date Time Temp Pulse Resp B/P (MAP) Pulse Ox O2 Delivery O2 Flow Rate FiO2 12/26/24 12:24 84 12 123/78 12/26/24 11:27 Room Air* 0 21 12/26/24 10:52 71 19 145/84 12/26/24 09:47 73 18 98 Room Air 12/26/24 09:47 98.3 73 18 144/83 (103) 98 98.3 12/26/24 08:40 82 12/26/24 08:29 82 12/26/24 08:21 98.0 103 20 147/84 99 98.0 Laboratory Tests Test 12/26/24 09:36 12/26/24 11:35 Lactic Acid Level 2.5 mmol/L (0.4-2.0) *H 1.7 mmol/L (0.4-2.0) White Blood Count 13.1 10^3/uL (4.4-10.8) H Medications Medications Dose Ordered Sig/Volodymyr Route Start Time Stop Time Status Last Admin Dose Admin Hydromorphone HCl 1 mg ONCE ONCE IV 12/26/24 10:45 12/26/24 10:46 DC 12/26/24 10:52 Ondansetron HCl 4 mg ONCE ONCE IV 12/26/24 08:45 12/26/24 08:46 DC 12/26/24 09:33 Pantoprazole Sodium 40 mg ONCE ONCE IV 12/26/24 10:30 12/26/24 10:31 DC 12/26/24 10:45 Sodium Chloride 500 ml @ 500 mls/hr Q1H ONCE IVB 12/26/24 08:45 12/26/24 09:44 DC 12/26/24 09:23 Departure 1 Departure Time of Disposition: 12:43 Impression: Primary Impression: Intractable pain Additional Impression: Nausea and vomiting Qualified Codes: R11.2 - Nausea with vomiting, unspecified Disposition: ADMITTED INPATIENT Admit to: Med Surg Condition: Fair Critical Care Note Critical Care Time?: No Stability Stability form required: Yes Unstable for transfer: ED Physician Assesment (Clinical assesment) Heart Score Heart Score: Heart Score Response (Comments) Value History N/A 0 EKG N/A 0 Age N/A 0 Risk Factors N/A 0 Troponin N/A 0 Total 0 I personally scribed for DAYANNA VEGA MD ([email or web address]) on 12/26/24 at 08:27. Electronically submitted by Jeane Atkinson ([email or web address] I personally scribed for DAYANNA VEGA MD ([email or web address]) on 12/26/24 at 08:40. Electronically submitted by Jeane Aktinson ([email or web address]). I personally scribed for DAYANNA VEGA MD ([email or web address]) on 12/26/24 at 09:09. Electronically submitted by Jeane Atkinson ([email or web address]). I personally scribed for DAYANNA VEGA MD ([email or web address]) on 12/26/24 at 10:40. Electronically submitted by Jeane Atkinson ([email or web address]). DAYANNA VEGA MD Dec 26, 2024 08:27
--- NOTE | 2024-12-26 09:19 | DVH ---
CLINICAL INFORMATION: Pain. TECHNIQUE: Axial CT images of the abdomen and pelvis were obtained without IV contrast. Coronal and s agittal reformatted images were obtained, reviewed, and stored. Evaluation of the parenchymal organs is limited without IV contrast. Evaluation of the bowel and mesentery is limited without oral contras t. All CT scans at this medical facility are performed using dose modulation techniques as appropriat e to a performed exam including the following: Automated exposure control was utilized; adjustment of the MA and/or KV according to patient size; and use of iterative reconstruction technique. CTDIvol = 9.12 mGy DLP = 543.28 mGy-cm COMPARISON: CT ABD/PEL on DOS: 08/02/24, CT ABD/PEL on DOS: 01/13/23, CT CT AB PEL WITH IV CON ONLY on DOS: 08/24/22 FINDINGS: Motion artifact limits evaluation. Lung bases: Mild atelectasis in the lung bases. Liver: Hepatic steatosis. Liver is enlarged, measuring up to 20.1 cm in craniocaudal dimension at the midclavicular line. Biliary: Cholecystectomy. Spleen: Unremarkable. Pancreas: Grossly unremarkable in its noncontrast enhanced appearance. Adrenal glands: Left adrenal nodule measures up to 1.3 cm, with density most consistent with a benign lipid rich adenoma. Kidneys: No hydronephrosis. No renal or ureteral calculi. Small exophytic low-attenuation lesion at t he midpole of the left kidney, likely a small cyst, but too small to characterize. Aorta/Vascular: Scattered atherosclerotic calcification. No abdominal aortic aneurysm. Lymph nodes: No mass or lymphadenopathy. Bowel/mesentery: Nonspecific nondilated fluid-filled small bowel loops. No small bowel obstruction. N o free air or free fluid. Appendix is visualized and appears unremarkable. Scattered small colonic d iverticula without adjacent inflammatory changes to suggest diverticulitis. Pelvic organs: Grossly unremarkable. Bladder: Unremarkable. No mass. Abdominal wall: Small to moderate sized fat containing umbilical hernia measuring up to 4 cm. Bones: No acute fracture or suspicious intraosseous lesion. IMPRESSION: 1. Hepatic steatosis and hepatomegaly. 2. Scattered small colonic diverticula without adjacent inflammatory changes to suggest diverticuliti s. 3. Nonspecific nondilated fluid-filled small bowel loops. Findings may be seen with ileus or enteriti s in the appropriate clinical setting. No small bowel obstruction. 4. Small left adrenal nodule most consistent with a benign lipid rich adenoma. 5. Small exophytic low-attenuation lesion at the midpole of the left kidney is likely a small cyst, b ut too small to characterize. 6. Small to moderate-sized fat containing umbilical hernia.
[2024-12-26] MEDS: SODIUM CHLORIDE 0.9% 500 ML IVB ONE (09:23)
[2024-12-26] MEDS: ONDANSETRON HCL 4 MG/2 ML VIAL IV ONE (09:33)
[2024-12-26 10:01] LABS: Hematocrit 43.1 % (36.0-46.0); Hemoglobin 14.9 g/dL (12.2-16.2); Mean Corpuscular Hemoglobin 29.5 pg (28.0-32.0); Mean Corpuscular Volume 85.0 fL (80.0-100.0); Nucleated Red Blood Cells % 0.1 %
[2024-12-26 10:21] LABS: Potassium 4.0 mmol/L (3.5-5.1)
[2024-12-26 10:22] LABS: Anion Gap 12 (5-15); Carbon Dioxide 24 mmol/L (20-31); Chloride 110 mmol/L (98-107); Sodium 146 mmol/L (136-145)
[2024-12-26 10:23] LABS: Calcium 10.1 mg/dL (8.7-10.4)
[2024-12-26 10:27] LABS: BUN/Creatinine Ratio 11.6 (10.0-20.0); Blood Urea Nitrogen 10 mg/dL (9-23)
[2024-12-26 10:30] LABS: Glucose 113 mg/dL (74-106)
[2024-12-26] MEDS: MORPHINE SULFATE 4 MG/ML SYR/VIAL IV ONE (10:37)
[2024-12-26 10:41] LABS: Lactic Acid w/Reflex 2.5 mmol/L (0.4-2.0)
[2024-12-26] MEDS: PANTOPRAZOLE 40 MG/10 ML VIAL INJ IV ONE (10:45)
[2024-12-26] MEDS: HYDROmorphone HCL 2 MG/ML VL/or syr IV ONE (10:52)
[2024-12-26 11:34] LABS: Urine Protein, UAD TRACE (Negative)
[2024-12-26] MEDS ORDERED: ACETAMINOPHEN 325 MG TAB PO PRN (12:15)
[2024-12-26] MEDS ORDERED: NITROGLYCERIN 0.4 MG SL TAB SL PRN (12:15)
[2024-12-26] MEDS ORDERED: HYDROcodone-ACET 5/325MG TAB PO PRN (12:15)
[2024-12-26] MEDS ORDERED: MORPHINE SULFATE INJ 2 MG/ml SYRG IV PRN (12:15)
[2024-12-26 12:25] VITALS: BP 123/89; PULSE 82; RESP 15; TEMP 98.3; O2SAT 98
--- NOTE | 2024-12-26 12:25 | DVHHPRES ---
History of Present Illness Resident Creating Document: CORINNA GARCIA RESIDENT History of Present Illness Inés Balderrama is a 59 years old female with a PMH of HTN, CHF, type 2 DM, bilateral PE presented to the ED with a 2 week history of continuation nausea, vomiting and diarrhea. Patient reported she started having left abdominal pain which is constant crampy in nature, 8/10 intensity, aggravated by eating food, no relieving factors, associated with nausea, vomiting, diarrhea and unable to keep food down symptoms accompanied by chills. Patient went to urgent care, prescribed Zofran but ineffective. For past 2 days the patient has attempted to consume only crackers and water but has been unable to retain event this. On my assessment patient denies fever, chest pain, difficulty breathing, recent travel, outside food, and other features. PMH: As above PSH: Cholecystectomy Family history: Noncontributory Personal history: Lives at home. Smokes 1 pack a day, denies alcohol and other drug abuse Allergies: Please see allergy section Home medications: Zofran, lisinopril, metoprolol, oxycodone, Eliquis ROS: Patient seen and examined at the bedside in ED. Currently symptoms are positive for nausea, vomiting, diarrhea, abdominal pain and back pain. Genitourinary symptoms positive for increased urination. Rest of ROS is negative. Review of Systems Allergies: Coded Allergies: Morphine (Verified Allergy, Intermediate, 08/17/17) Codeine (Verified Allergy, Unknown, 07/10/20) Haloperidol (Verified Allergy, Unknown, 07/27/21) Ketorolac Tromethamine (Verified Allergy, Unknown, 08/17/17) Metronidazole (Unverified Allergy, Unknown, ANXIETY/SOB, 12/10/19) Penicillins (Verified Allergy, Unknown, 08/17/17) Prochlorperazine (Verified Allergy, Unknown, 08/17/17) Saccharin (Verified Allergy, Unknown, 08/17/17) Sulfa Antibiotics (Verified Allergy, Unknown, 04/19/20) Valproic Acid (Verified Allergy, Unknown, 08/17/17) Medications Current Medications Medications Dose Ordered Sig/Volodymyr Route Start Time Stop Time Status Last Admin Dose Admin Sodium Chloride 10 ml Q8HR IV 12/26/24 14:00 UNV Sodium Chloride 1,000 ml @ 60 mls/hr [id number] IV 12/26/24 12:15 UNV Acetaminophen/ Hydrocodone Bitart 1 tab Q4HP PRN PO 12/26/24 12:15 UNV Acetaminophen 650 mg Q6HP PRN PO 12/26/24 12:15 UNV Nitroglycerin 0.4 mg Q5MINP PRN SL 12/26/24 12:15 UNV Morphine Sulfate 2 mg Q30M PRN IV 12/26/24 12:15 UNV Metoclopramide HCl 5 mg Q6HPRN PRN IV 12/26/24 12:15 UNV Pantoprazole Sodium 40 mg DAILY IV 12/27/24 10:00 UNV Ceftriaxone Sodium 50 ml @ 100 mls/hr DAILY@09 IV 12/27/24 09:00 UNV Metoprolol Tartrate 25 mg DAILY PO 12/27/24 10:00 UNV Patient Own Medication 1 tab DAILY PO 12/27/24 10:00 UNV Apixaban 5 mg BID PO 12/26/24 12:15 UNV Exam Vital Signs Vital Signs Date Time Temp Pulse Resp B/P (MAP) Pulse Ox O2 Delivery O2 Flow Rate FiO2 12/26/24 11:27 Room Air* 0 21 12/26/24 10:52 71 19 145/84 12/26/24 09:47 98 12/26/24 09:47 98.3 98.3 Exam Pt is lying on bed General Appearance: Alert, Oriented X3, Cooperative, Not in acute distress HEENT: Atraumatic, Mucous membranes moist/pink Respiratory: Clear to auscultation, Normal air movement, No added sounds Cardiovascular: Regular rate, Normal S1, Normal S2, No murmurs Abdominal: Active bowel sounds, Soft, no distention, left generalized abdominal tenderness, flank tenderness Extremities: No edema, Normal pulses, No tenderness/swelling Skin: No Significant rash, except past surgical scars Neuro: Normal speech, sensorimotor deficits none Psych/Mental Status: Mental status NL, Mood NL Nurse was there as sight mounter during examination Labs/Xrays Labs Test 12/26/24 11:35 12/26/24 11:03 12/26/24 10:29 12/26/24 09:36 Range/Units Lactic Acid Level 1.7 0.4-2.0 mmol/L Urine Color Yellow Yellow Urine Clarity Clear Clear Urine pH 8.5 5.0-9.0 Urine Specific [place] 1.017 1.001-1.035 Urine Protein Trace H Negative Urine Ketones Negative Negative Urine Blood Negative Negative /uL Urine Nitrite Negative Negative Urine Bilirubin Negative Negative Urine Urobilinogen Normal Negative mg/dL Urine Leukocyte Esterase Negative Negative /uL Urine RBC 3 0 - 4 /hpf Urine Microscopic WBC 2 0-5 /HPF Urine Squamous Epithelial Cells Few <5 /hpf Urine Bacteria Mod H None Seen /hpf Urine Glucose Normal Normal mg/dL Troponin I High Sensitivity 5 </=34 ng/L White Blood Count 13.1 H 4.4-10.8 10^3/uL Red Blood Count 5.07 4.0-5.20 10^6/uL Hemoglobin 14.9 12.2-16.2 g/dL Hematocrit 43.1 36.0-46.0 % Mean Corpuscular Volume 85.0 80.0-100.0 fL Mean Corpuscular Hemoglobin 29.5 28.0-32.0 pg Mean Corpuscular Hemoglobin Concent 34.7 32.0-36.0 g/dL Red Cell Distribution Width 13.2 11.8-14.3 % Platelet Count 374 140-450 10^3/uL Mean Platelet Volume 7.9 6.9-10.8 fL Neutrophils (%) (Auto) 83.8 H 37.0-80.0 % Lymphocytes (%) (Auto) 12.8 10.0-50.0 % Monocytes (%) (Auto) 2.8 0.0-12.0 % Eosinophils (%) (Auto) 0.1 0.0-7.0 % Basophils (%) (Auto) 0.5 0.0-2.0 % Neutrophils # (Auto) 10.9 H 1.6-8.6 10 ^3/uL Lymphocytes # (Auto) 1.7 0.4-5.4 10 ^3/uL Monocytes # (Auto) 0.4 0-1.3 10 ^3/uL Eosinophils # (Auto) 0 0-0.8 10 ^3/uL Basophils # (Auto) 0.1 0-0.2 10 ^3/uL Nucleated Red Blood Cells 0.1 % Sodium Level 146 H 136-145 mmol/L Potassium Level 4.0 3.5-5.1 mmol/L Chloride Level 110 H 98-107 mmol/L Carbon Dioxide Level 24 20-31 mmol/L Anion Gap 12 5-15 Blood Urea Nitrogen 10 9-23 mg/dL Creatinine 0.86 0.550-1.02 mg/dL Glomerular Filtration Rate Calc 79 >90 mL/min BUN/Creatinine Ratio 11.6 10.0-20.0 Serum Glucose 113 H 74-106 mg/dL Calcium Level 10.1 8.7-10.4 mg/dL Test 12/26/24 08:32 Range/Units POC Glucose 122 H 70-106 mg/dl SEPSIS Sepsis Screen Date sepsis recognized/suspect: Dec 26, 2024 Time Sepsis recognized/suspect: 1129 Recent Procedure: No On Antibiotic Therapy: No Respiratory Rate >20: No Heart Rate >90: No Temp<36 C (96.8 F) or >38.3 C: No SBP <90 or MAP <65 mmHG: No New Acute Mental Status Change: No Is the patient on CPAP, BIPAP,: No Physician Orders Ct Ab Pel Wo Con-No Oral Or Iv (12/26/24 08:40) Heplock Iv (12/26/24 08:40) Clerk Typist (12/26/24 08:40) Blood Pressure (12/26/24 08:40) Pulse Oximetry (12/26/24 08:40) Troponin-I Hs (12/26/24 11:40) Electrocardigram (12/26/24 09:19) Admit (12/26/24 12:04) Allergies (12/26/24 12:04) Code Status (12/26/24 12:04) Sodium Chloride Lock (Saline Lock Ns) (12/26/24 14:00) Sodium Chloride 0.9% (12/26/24 12:15) Hydrocodone-Acet 5/325mg Tab ([place]ley (12/26/24 12:15) Complete Blood Count (12/27/24 04:00) Comprehensive Metabolic Panel (12/27/24 04:00) Condition: Fair (12/26/24 12:04) Acetaminophen Tablet (Tylenol Tablet) (12/26/24 12:15) Clear Liq Diet (12/26/24 Lunch) Nitroglycerin Sublingual (Ntrostat Subli (12/26/24 12:15) Morphine Sulfate Injection (12/26/24 12:15) Oxygen By Nasal Cannula (12/26/24 12:04) Stat Ekg For Chest Pain (12/26/24 12:04) Notify Md Of Changes From Base (12/26/24 12:04) Nephrology Nurse For 24 Hours (12/26/24 12:04) Emergency Dysrhythmia Protocol (12/26/24 12:04) Rhythm Strips Once Every Shift (12/26/24 12:04) Metoclopramide Injection (Reglan Injecti (12/26/24 12:15) Pantoprazole (Protonix) (12/27/24 10:00) Ceftriaxone 1gm/50ml (Rocephin) (12/26/24 12:15) Ceftriaxone 1gm/50ml (Rocephin) (12/27/24 09:00) B-Type Natriuretic Peptide (12/26/24 12:04) Magnesium (12/26/24 12:04) PTPTT (12/26/24 12:04) Hepatic Panel (12/26/24 12:04) Drug Screen (12/26/24 12:04) Stool Bacterial Culture (12/26/24 12:04) Stool Wbc (12/26/24 12:04) Clostridium Difficile Toxin (12/26/24 12:04) Urine Bacterial Culture (12/26/24 12:04) Blood Culture (12/26/24 12:04) Metoprolol Tartrate Tablet (Lopressor Ta (12/27/24 10:00) (Nf) Lisinopril (12/27/24 10:00) Apixaban (Eliquis) (12/26/24 12:15) Vital Signs Date Time Temp Pulse Resp B/P (MAP) Pulse Ox O2 Delivery O2 Flow Rate FiO2 12/26/24 11:27 Room Air* 0 21 12/26/24 10:52 71 19 145/84 12/26/24 09:47 73 18 98 Room Air 12/26/24 09:47 98.3 73 18 144/83 (103) 98 98.3 12/26/24 08:40 82 12/26/24 08:29 82 12/26/24 08:21 98.0 103 20 147/84 99 98.0 Laboratory Tests Test 12/26/24 09:36 12/26/24 11:35 Lactic Acid Level 2.5 mmol/L (0.4-2.0) *H 1.7 mmol/L (0.4-2.0) White Blood Count 13.1 10^3/uL (4.4-10.8) H Medications Medications Dose Ordered Sig/Volodymyr Route Start Time Stop Time Status Last Admin Dose Admin Hydromorphone HCl 1 mg ONCE ONCE IV 12/26/24 10:45 12/26/24 10:46 DC 12/26/24 10:52 1 MG Ondansetron HCl 4 mg ONCE ONCE IV 12/26/24 08:45 12/26/24 08:46 DC 12/26/24 09:33 4 MG Pantoprazole Sodium 40 mg ONCE ONCE IV 12/26/24 10:30 12/26/24 10:31 DC 12/26/24 10:45 40 MG Sodium Chloride 500 ml @ 500 mls/hr Q1H ONCE IVB 12/26/24 08:45 12/26/24 09:44 DC 12/26/24 09:23 500 MLS/HR Assessment/Plan Assessment/Plan # Sepsis likely due to below # Acute Gastro-Eneteritis likely infectious # R/o C diff - admit med surge - supportive management - IVF - stool studies and pancultures - CT nonspecific nondilated fluid-filled small bowel loops, suggestive of ileus or enteritis - Protonix - Rocephin # R/o UTI - urinalysis negative - urine culture # Uncontrolled HTN # Ch diastolic CHF - BNP - continuously monitor blood pressure - resumed home medications # Hepatic steatosis and 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 - outpatient follow up with GI # Colonic diverticulosis - evident on CT - dietary education to prevent diverticulitis # Left adrenal nodule- Incidental - CT abdominal pelvis showed left adrenal nodule consistent with lipid rich adenoma - monitor - outpatient follow up # Left renal cyst-incidental - CT showed exophytic lesion admit follow up left kidney - outpatient follow up # Fat containing umbilical hernia without obstruction - monitor # Obesity class 2 with a BMI - counseled regarding healthy lifestyle modifications including diet and exercise # Tobacco use disorder/dependence - counseled regarding cessation for more than 17 minutes - consider nicotine patch # Hx of B/l PE - resumed Eliquis # Chronic pain syndrome - Westley as needed GI PPX: Protonix VTE ppx: Eliquis Diet: Clear liquid if tolerates Goals of care addressed with the patient for more than 27 minutes: Full code status Case discussed with Dr. Midou ,patient and nurse Plan discussed with: Patient My Orders Orders - CORINNA GARCIA RESIDENT Procedure Category Date Status Time Admit ADMIT 12/26/24 Transmitted 12:04 Allergies YOLIS 12/26/24 In Process 12:04 Code Status CODE 12/26/24 Transmitted 12:04 Sodium Chloride Lock PHA 12/26/24 Logged (Saline Lock Ns) 14:00 Sodium Chloride 0.9% PHA 12/26/24 Logged 12:15 Hydrocodone-Acet PHA 12/26/24 Logged 5/325mg Tab ([place]ley 12:15 Complete Blood Count LAB 12/27/24 Verified 04:00 Comprehensive LAB 12/27/24 Verified Metabolic Panel 04:00 Condition: Fair YOLIS 12/26/24 In Process 12:04 Acetaminophen Tablet PHA 12/26/24 Logged (Tylenol Tablet) 12:15 Clear Liq Diet DIET 12/26/24 Transmitted Lunch Nitroglycerin PHA 12/26/24 Logged Sublingual (Ntrostat 12:15 Morphine Sulfate PHA 12/26/24 Logged Injection 12:15 Oxygen By Nasal RT 12/26/24 Transmitted Cannula 12:[address] [facility] 12/26/24 In Process Pain 12:04 Notify Md Of Changes [facility] 12/26/24 In Process From Base 12:[address] [facility] 12/26/24 In Process 24 Hours 12:[address] [facility] 12/26/24 In Process Protocol 12:[address] [facility] 12/26/24 In Process Every Shift 12:04 Metoclopramide PHA 12/26/24 Logged Injection (Reglan 12:15 Pantoprazole PHA 12/27/24 Logged (Protonix) 10:00 Ceftriaxone 1gm/50ml PHA 12/26/24 Logged (Rocephin) 12:15 Ceftriaxone 1gm/50ml PHA 12/27/24 Logged (Rocephin) 09:00 B-Type Natriuretic LAB 12/26/24 Logged Peptide 12:04 Magnesium LAB 12/26/24 Logged 12:04 PTPTT LAB 12/26/24 Logged 12:04 Hepatic Panel LAB 12/26/24 Logged 12:04 Drug Screen LAB 12/26/24 Logged 12:04 Stool Bacterial GILDA 12/26/24 Logged Culture 12:04 Stool Wbc LAB 12/26/24 Logged 12:04 Clostridium Difficile GILDA 12/26/24 Logged Toxin 12:04 Urine Bacterial GILDA 12/26/24 Logged Culture 12:04 Blood Culture GILDA 12/26/24 Logged 12:04 Metoprolol Tartrate PHA 12/27/24 Logged Tablet (Lopressor Ta 10:00 (Nf) Lisinopril PHA 12/27/24 Logged 10:00 Apixaban (Eliquis) PHA 12/26/24 Logged 12:15 CORINNA GARCIA RESIDENT Dec 26, 2024 12:25
[2024-12-26] MEDS: NICOTINE 14 MG/24HR TOPICAL PATCH TD ONE (12:37)
[2024-12-26 12:59] LABS: Amphetamine Screen, Urine Neg (NEGATIVE); Barbiturate Scree,Urine Neg (NEGATIVE); Benzodiazephine Screen, Urine Neg (NEGATIVE); Cannabinoid Screen, Urine Neg (NEGATIVE); Cocaine Screen, Urine Neg (NEGATIVE); Opiate Scree,Urine Neg (NEGATIVE); Phencyclidine Screen, Urine Neg (NEGATIVE)
[2024-12-26] MEDS: APIXABAN 5 MG TAB PO SCH (13:00)
[2024-12-26] MEDS: SODIUM CHLORIDE 0.9% 1,000 ML IV SCH (13:05)
[2024-12-26 13:08] LABS: INR 0.97 (0.9-1.15); Partial Thromboplastin Time 27.1 SEC (24.5-34.5); Prothrombin Time 10.3 sec (9.3-11.8)
[2024-12-26 13:26] LABS: Alanine Aminotransferase 20.0 U/L (7-40); Albumin 4.3 g/dL (3.2-4.8); Alkaline Phosphatase 102.0 U/L (46-116); Bilirubin, Direct 0.2 mg/dL (<0.3); Magnesium 1.9 mg/dL (1.6-2.6); Total Protein 6.8 g/dL (5.7-8.2)
[2024-12-26 13:27] LABS: Bilirubin, Total 0.5 mg/dL (0.2-1.0)
--- NOTE | 2024-12-26 13:52 | ECG ---
[facility] Test Date: 2024-12-26 Test Time: 08:29:14 Pat Name: WOO CAMARGO Department: Room: [address] [place] [address] Gender: F Rehanger: STAR : 1965 Requested By: DAYANNA VEGA Order Number: [id number] Reading MD: Measurements Intervals [place] Rate: 82 P: 33 ME: 155 QRS: -41 QRSD: 103 T: 23 QT: 414 QTc: 484 Interpretive Statements Sinus rhythm Left axis deviation Abnormal R-wave progression, late transition Please click the below link to view image of tracing.
[2024-12-26] MEDS: METOCLOPRAMIDE HCL 5MG/ml INJ 2ml VIAL IV PRN (13:57)
[2024-12-26] MEDS: SODIUM CHLOR 0.9% PF (SALINE LOCK) 10ML VIAL/SYR IV SCH (14:06)
[2024-12-27] MEDS ORDERED: PANTOPRAZOLE 40 MG/10 ML VIAL INJ IV SCH (10:00)
[2024-12-27] MEDS ORDERED: METOPROLOL TARTRATE 50 MG TAB PO SCH (10:00)
[2024-12-27] MEDS ORDERED: NICOTINE 14 MG/24HR TOPICAL PATCH TD SCH (10:00)
[2024-12-27] MEDS ORDERED: PATIENTS OWN MEDICATION (Lisinopril 1 TAB) PO SCH (10:00)
== END 2024-12-26 14:13 | disposition left against medical advice (07) | DRG 720 ==
LOC: ER 08:15 → OVERFLOW 12:04
PROVIDERS: ATTEND Emergency Medicine
DX: A41.9 Sepsis, unspecified organism (principal); I11.0 Hypertensive heart disease with heart failure; I50.32 Chronic diastolic (congestive) heart failure; R16.0 Hepatomegaly, not elsewhere classified; A09 Infectious gastroenteritis and colitis, unspecified; E11.9 Type 2 diabetes mellitus without complications; F17.210 Nicotine dependence, cigarettes, uncomplicated; K42.9 Umbilical hernia without obstruction or gangrene; K57.30 Diverticulosis of large intestine without perforation or abscess without bleeding; Z53.29 Procedure and treatment not carried out because of patient's decision for other reasons; K76.0 Fatty (change of) liver, not elsewhere classified; N39.0 Urinary tract infection, site not specified; F41.9 Anxiety disorder, unspecified; E78.5 Hyperlipidemia, unspecified; J44.9 Chronic obstructive pulmonary disease, unspecified; F32.A Depression, unspecified; N28.1 Cyst of kidney, acquired; G89.4 Chronic pain syndrome; E66.812 Obesity, class 2; Z87.442 Personal history of urinary calculi; Z88.5 Allergy status to narcotic agent; Z88.8 Allergy status to other drugs, medicaments and biological substances; Z86.711 Personal history of pulmonary embolism; Z90.49 Acquired absence of other specified parts of digestive tract; Z82.49 Family history of ischemic heart disease and other diseases of the circulatory system; Z87.11 Personal history of peptic ulcer disease; Z88.0 Allergy status to penicillin; Z68.37 Body mass index [BMI] 37.0-37.9, adult
CPT/HCPCS: 36415; 74176; 80048; 80076; 80307; 81001; 82962; 83605; 83735; 83880; 84484; 85025; 85610; 85730; 87040; 87086; 93005; 96374; G0378; J2405; J2470